=== PATIENT | male | born 1950 | race Caucasian/White ===

== ENCOUNTER 2016-05-15 23:55 | Inpatient (IN) | payer MEDICARE, MEDICAID ==
--- NOTE | 2016-05-16 00:10 | ED Physician Chart ---
Chief Complaint/HPI - Patient Information Date Seen:: 05/16/16 Time Seen:: 00:05 Chief Complaint:: Fever History of Present Illness:: Brought in by ambulance from board and care facility because of fever today. Pt has profound mental retardation and is not cooperative; thus, H & P are limited. Info is primarily from review of limited transfer documents. Allergies:: Allergies Allergy/AdvReac Type Severity Reaction Status Date / Time No Known Allergies Allergy Verified 05/16/16 00:05 Vitals:: see Nurse Note. Historian:: Patient, Medical Records (from transferring facility.) Family MD/PCP:: Dr. Durán LMP:: N/A Review:: Nurse's Note Reviewed, Transfer documents Reviewed Review of Systems - Review of Systems General/Constitutional: Other (Pt does not cooperate for ROS.) Past Medical History - Past Medical History Past Medical History: Dementia (with severe mental retardation, blindness, hydrocephalus with R hemiparesis.), Other (Chronic anemia.) Family History: Other (Pt does not cooperate to provide info on FHx.) Social History: Care Facility, Other (Pt does not cooperate to provide info on SHx.) Surgical History: other (Pt does not cooperate to provide info on Surgical Hx.) Psychiatricy History: Dementia Medication: Reviewed Family Medical History - Family Member Mother History Unknown: Yes Physical Exam - Physical Examination General/Constitutional: Awake, Well-developed, well-nourished, Alert, No distress Other Gen/Cons comments:: Breathes comfortably and responds to voice and tactile stimuli. Head: Atraumatic Eyes: Lids, conjuctiva normal, PERRL, EOMI Skin: No ecchymosis, No lymphadenopathy Other Skin comments:: Good skin color with mild decrease in turgor. ENMT: External ears, nose nl, Nasal exam nl, Oropharynx nl, Tonsils nl Other ENMT comments:: Mucous membrane is dry. Neck: Nontender, Full ROM w/o pain, No JVD, No nuchal rigidity, No mass, No stridor Respiratory: Nl effort/Exclusion Other Respiratory comments:: Trace rale at left basilar region. No wheeze. Cardio Vascular: No murmur, gallop, rubs Other Cardio Vascular comments:: Regular rhythm with mild tachycardia. GI: No tenderness/rebounding/guarding, No organomegaly, No hernia, Normal BS's, Nondistended, No mass/bruits, No McBurney tenderness Other GI comments:: Obese but soft. : No CVA tenderness Extremities: No edema Other Extremities comments:: Contracture noticed in RUE. Other Neuro/Psych comments:: Alert and responsive to voice and tactile stimuli. Spontaneous movements noticed in all 4 extremities. Pt does not cooperate for full neurological exam. Labs/Radiology/EKG Results - Lab Results Results: Laboratory Tests 05/16/16 05/16/16 05/16/16 00:21 00:21 00:21 WBC 18.8 H RBC 3.88 Hgb 9.6 L Hct 29.5 L MCV 75.8 L MCH 24.8 L MCHC Differential 32.7 RDW 16.7 Plt Count 334 MPV 8.0 Band Neutrophils % 6 Neutrophils (Manual) 89 H Lymphocytes 4 L Monocytes 1 L Hypochromia 1+ Platelet Estimate ADEQUATE Poikilocytosis 1+ Anisocytosis 1+ Microcytosis 1+ Ovalocytes 1+ PT 11.9 H INR 1.13 PTT (Actin FS) 21.7 L Sodium 132 L Potassium 3.7 Chloride 105 Carbon Dioxide 25.2 Anion Gap 5.5 L BUN 22 Creatinine 0.9 Est GFR ( Amer) > 60.0 Est GFR (Non-Af Amer) > 60.0 BUN/Creatinine Ratio 24.4 Glucose 168 H Whole Bld Lactic Acid Calcium 8.9 Total Bilirubin 0.5 AST 37 ALT 47 Alkaline Phosphatase 185 H Creatine Kinase 126 Troponin I Total Protein 6.1 Albumin 2.8 L Globulin 3.3 Albumin/Globulin Ratio 0.9 L Urine Source Urine Color Urine Clarity Urine pH Ur Specific [place] Urine Protein Urine Glucose (UA) Urine Ketones Urine Blood Urine Nitrate Urine Bilirubin Urine Ictotest Urine Urobilinogen Ur Leukocyte Esterase Urine RBC Urine WBC Ur Epithelial Cells Urine Bacteria Hyaline Casts Coarse Granular Casts 05/16/16 05/16/16 05/16/16 00:21 00:21 01:30 WBC RBC Hgb Hct MCV MCH MCHC Differential RDW Plt Count MPV Band Neutrophils % Neutrophils (Manual) Lymphocytes Monocytes Hypochromia Platelet Estimate Poikilocytosis Anisocytosis Microcytosis Ovalocytes PT INR PTT (Actin FS) Sodium Potassium Chloride Carbon Dioxide Anion Gap BUN Creatinine Est GFR ( Amer) Est GFR (Non-Af Amer) BUN/Creatinine Ratio Glucose Whole Bld Lactic Acid 2.79 H* Calcium Total Bilirubin AST ALT Alkaline Phosphatase Creatine Kinase Troponin I 0.04 Total Protein Albumin Globulin Albumin/Globulin Ratio Urine Source CATH Urine Color ORANGE Urine Clarity HAZY Urine pH 5.5 Ur Specific [place] 1.025 Urine Protein 100 H Urine Glucose (UA) NEGATIVE Urine Ketones TRACE Urine Blood SMALL H Urine Nitrate NEGATIVE Urine Bilirubin SMALL H Urine Ictotest POSITIVE H Urine Urobilinogen 0.2 Ur Leukocyte Esterase NEGATIVE Urine RBC 5-10 H Urine WBC 2-5 H Ur Epithelial Cells MODERATE Urine Bacteria MODERATE Hyaline Casts 2-5 H Coarse Granular Casts 2-5 H - Radiology Results Results: PCXR: Based on my interpretation, increased markings at L basilar region. Consider early pneumonia. Official report is pending. - EKG Interpretations EKG Time:: 00:21 Rhythm: Sinus tachycardia Rate: 105 Comments:: No acute ischemic changes. ED Septic Shock - . Is Septic Shock (SBP<90, OR Lactate>4 mmol\L) present?: No Reassessment (Disposition) - Reassessment Reassessment:: 1410 Pt has been repeatedly evaluated. Pt overall improved after IV hydration with normalized heart rate and improved BP. CXR just became available. Dr. Wagner is to be contacted. 1420 Case was discussed with Dr. Wagner with pertinent H & P, EKG, CXR, and lab findings reviewed. He concurred with present management with antibiotic therapy , IV hydration, etc. Pt is to be admitted to Telemetry [facility] under his care. Reassessment Condition:: Improved - Diagnosis Diagnosis:: Febrile illness related to pneumonia and UTI, stable. Chronic anemia, stable. h/o dementia - Patient Disposition Admitted to:: Telemetry Admitting Medical Physician:: Carlos Wagner Time:: 02:25 Condition at Disposition:: Stable, Improved
[2016-05-16] MEDS ORDERED: Sodium Chloride 0.9% 1,000 ML IV ONE (00:17)
[2016-05-16 00:33] LABS: HEMATOCRIT 29.5 % (39.0-49.0); HEMOGLOBIN 9.6 gm/dL (12.6-17.4); MEAN CELL VOLUME 75.8 fl (80-99); MEAN CORPUSCULAR HEMOGLOBIN 24.8 pg (27.0-31.0); MEAN CORPUSCULAR HGB CONC 32.7 pg (28.0-36.0); PLATELET COUNT 334 Th/cmm (150-400); RED BLOOD COUNT 3.88 Mil/cmm (3.80-5.80); RED CELL DISTRIBUTION WIDTH 16.7 % (11.5-20.0)
[2016-05-16 00:34] LABS: WHITE BLOOD COUNT 18.8 Th/cmm (4.8-10.8)
[2016-05-16 00:47] LABS: INR 1.13 (0.5-1.4); PROTHROMBIN TIME (TEST) 11.9 SECONDS (9.5-11.5)
[2016-05-16 00:49] LABS: ALB/GLOB RATIO 0.9 (1.0-1.8); ALKALINE PHOSPHATASE 185 U/L (34-104); ANION GAP 5.5 (7.0-16.0); BILIRUBIN,TOTAL 0.5 mg/dL (0.3-1.0); BUN - UREA NITROGEN 22 mg/dL (7-25); BUN/CREATININE RATIO 24.4; CALCIUM SERUM 8.9 mg/dL (8.6-10.3); CARBON DIOXIDE 25.2 mEq/L (21.0-31.0); CHLORIDE 105 mEq/L (98-107); CREATININE - SERUM 0.9 mg/dL (0.7-1.3); GLUCOSE 168 mg/dL (70-105); POTASSIUM SERUM 3.7 mEq/L (3.5-5.1); SGOT 37 U/L (13-39); SGPT/ALT 47 U/L (7-52); SODIUM SERUM 132 mEq/L (136-145)
[2016-05-16 01:03] LABS: TOTAL CELLS COUNTED 100
[2016-05-16 01:04] LABS: BAND NEUTROPHILE 6 % (0-10); NEUTROPHILS 89 % (40-80); PLATELET ESTIMATE ADEQUATE (NORMAL)
[2016-05-16 01:05] LABS: ANISOCYTOSIS 1+; HYPOCHROMIA 1+; MICROCYTOSIS 1+; OVALOCYTES 1+; POIKILOCYTOSIS 1+
[2016-05-16 01:57] LABS: URINE BILIRUBIN SMALL (NEGATIVE); URINE BLOOD SMALL (NEGATIVE); URINE COLOR ORANGE; URINE GLUCOSE (UA) NEGATIVE (NEGATIVE); URINE KETONE TRACE mg/dL (NEGATIVE)
[2016-05-16 01:58] LABS: URINE BACTERIA MODERATE /hpf (NONE SEEN); URINE EPITHELIAL CELLS MODERATE /lpf (FEW); URINE PH 5.5; URINE PROTEIN 100 mg/dL (NEGATIVE); URINE UROBILINOGEN 0.2 E.U./dL (0.2 - 1.0)
[2016-05-16] MEDS ORDERED: cefTRIAXone 1 GM in Sodium Chloride 0.9% 50 ML IV ONE (02:11)
[2016-05-16] MEDS ORDERED: Levofloxacin 500mg/100mL 500 MG/100 ML BAG IV ONE ×2 (02:23→02:28)
--- NOTE | 2016-05-16 04:02 | Admit Criteria Form ---
Admit Criteria Forms - Admit Criteria Diagnosis: FEBRILE ILLNESS, WITHOUT FOCAL INFECTION Clinical Indications for Admission to Inpatient Care (Place 'X' for any and all applicable criteria): Admission is indicated for ANY ONE of the following (1)(2)(3): [ ] I. Bacteremia [ ]II. Suspected or identified specific infection requiring hospitalization (eg, meningitis, endocarditis) [ ]III. Hemodynamic instability [ ]IV. Altered mental status [ ]V. Failure or unavailability of outpatient antimicrobial treatment [ ]. Hypoxemia [ ]VII. Seizures [ ]VIII. High-risk febrile neutropenia [ ]IX. Need for parenteral antibiotic in patient who is likely to abuse vascular access device (eg, injection drug user) [A](7) [ ]X. Temperature greater than 104.9 degrees F (40.5 degrees C) (oral) [X]XI. Inpatient admission required rather than observation care because of ANY ONE of the following: [X]a) Specific infection identified that is too severe for outpatient treatment or observation care trial [ ]b) Metabolic disorder (eg, hypoglycemia, hyperglycemia, metabolic acidosis) that is severe or persistent [ ]c) Temperature greater than 103.1 degrees F (39.5 degrees C) ( oral) that is not responsive to observation care treatment [ ]d) IV fluid to replace significant ongoing (eg, for over 24 hours) losses (> 3 L/m2 per day) [ ]e) Supplemental oxygen or respiratory treatments for over 24 hours that is performable only in acute inpatient setting [X]f) Parenteral nutrition regimen need that must be implemented on inpatient basis [ ]g) Strict or protective (eg, laminar flow) isolation [ ]h) Other condition, treatment or monitoring requiring inpatient admission Extended stay beyond goal length of stay may be needed for(1)(3) [ ]a) Sepsis or septic shock(22) [ ]b) Positive blood cultures [ ]c) Insufficient oral intake [ ]d) High-risk febrile neutropenia(29)(30) [ ]e) Continued fever and clinical instability [ ]f) Clinically active comorbid illness (e.g,heart failure, renal failure , diabetes) The original [facility] content created by Gregorio Fuentes has been revised. The portions of the content which have been revised are identified through the use of italic text or in bold, and Gregorio Fuentes has neither reviewed nor approved the modified material. All other unmodified content is copyright [facility]. Please see references footnoted in the original [facility] edition 2016 Admit Criteria Met?: Yes
[2016-05-16] MEDS: Sodium Chloride 0.9% 1,000 ML IV SCH ×2 (04:15→18:02)
[2016-05-16 06:30] LABS: HEMOGLOBIN 8.7 gm/dL (12.6-17.4); RED CELL DISTRIBUTION WIDTH 16.8 % (11.5-20.0)
[2016-05-16 06:47] LABS: ALB/GLOB RATIO 0.9 (1.0-1.8); ALKALINE PHOSPHATASE 148 U/L (34-104); ANION GAP 2.3 (7.0-16.0); BILIRUBIN,TOTAL 0.3 mg/dL (0.3-1.0); BUN - UREA NITROGEN 22 mg/dL (7-25); BUN/CREATININE RATIO 27.5; CALCIUM SERUM 8.6 mg/dL (8.6-10.3); CARBON DIOXIDE 28.6 mEq/L (21.0-31.0); CHLORIDE 108 mEq/L (98-107); CHOLESTEROL 67 mg/dL (<200); CREATININE - SERUM 0.8 mg/dL (0.7-1.3); GLUCOSE 101 mg/dL (70-105); POTASSIUM SERUM 3.9 mEq/L (3.5-5.1); SGOT 26 U/L (13-39); SGPT/ALT 38 U/L (7-52); SODIUM SERUM 135 mEq/L (136-145); TRIGLYCERIDES 69 mg/dL (<150)
[2016-05-16 07:39] LABS: HEMATOCRIT 26.4 % (39.0-49.0); MEAN CELL VOLUME 76.2 fl (80-99); MEAN CORPUSCULAR HEMOGLOBIN 25.1 pg (27.0-31.0); MEAN CORPUSCULAR HGB CONC 32.9 pg (28.0-36.0); MEAN PLATELET VOLUME 7.9 fl; PLATELET COUNT 275 Th/cmm (150-400); RED BLOOD COUNT 3.47 Mil/cmm (3.80-5.80); WHITE BLOOD COUNT 13.7 Th/cmm (4.8-10.8)
--- NOTE | 2016-05-16 08:06 | Diagnostic Imaging Report ---
Portable chest x-ray HISTORY: Fever The patient is rotated. Density noted about the left costophrenic angle. Changes may be associated with a small pleural effusion. No definite focal pulmonary parenchymal processes. IMPRESSION: 1. Limited exam due to patient rotation 2. Question small left pleural effusion. Etiology uncertain.
[2016-05-16] MEDS: Multivitamin w/ Minerals Tab PO SCH ×2 (08:28→16:23)
[2016-05-16] MEDS: POLYETHYLENE GLYCOL 3350 17 GM PACK PO SCH (08:28)
[2016-05-16] MEDS: Ferrous Sulfate 325 MG TAB PO SCH ×2 (08:28→16:23)
[2016-05-16 08:49] LABS: ANISOCYTOSIS 1+; BAND NEUTROPHILE 8 % (0-10); MICROCYTOSIS 2+; NEUTROPHILS 79 % (40-80); PLATELET ESTIMATE ADEQUATE (NORMAL); PLATELET MORPHOLOGY GIANT PLATELETS SEEN (NORMAL); TOTAL CELLS COUNTED 100
[2016-05-16 08:52] LABS: OVALOCYTES 1+; POIKILOCYTOSIS 1+
[2016-05-16] MEDS ORDERED: SIMETHICONE 125 MG PO SCH (09:00)
[2016-05-16] MEDS ORDERED: SIMETHICONE 40 MG/0.6 ML BOTTLE PO SCH (09:00)
[2016-05-16] MEDS ORDERED: VTE Chemical Prophylaxis Screen/Admission MC PRN (09:00)
[2016-05-16] MEDS: METRONIDAZOLE 0.75% TP SCH ×2 (10:13→17:38)
[2016-05-16] MEDS: Menthol/Zinc Oxide Oint 113gm Tube TP SCH (10:16)
--- NOTE | 2016-05-16 10:58 | History & Physical ---
CHIEF COMPLAINT: Fever. HISTORY OF PRESENT ILLNESS: This is a 65-year-old gentleman with history of mental retardation, advanced dementia, legally blind, history of hydrocephalus with right hematemesis, chronic anemia who was transferred from [facility] Care given the above-mentioned symptomatology. The patient was evaluated at the ER where pertinent findings included a white count of 18.8, sodium 132, lactic acid level of 2.16. UA was consistent with a UTI and a chest x-ray showing left pleural effusions. The patient has been admitted to telemetry for further management and care. The patient is asleep, arousable, but not able to give me any history at this time. PAST MEDICAL HISTORY: As noted above. PAST SURGICAL HISTORY: Unknown. FAMILY HISTORY: Unknown, but likely noncontributory. SOCIAL HISTORY: He lives at the [facility] and care under the care of Dr. Durán. ALLERGIES: NKDA. HE IS ALLERGIC TO SOME SOAPS. OUTPATIENT MEDICATIONS: Amitiza 24 mcg twice a day, iron sulfate 325 twice a day, multivitamins every day, MiraLax 1 dose a day for constipation, Tylenol p.r.n. for mild pain, simethicone 125 mg after breakfast and dinner. REVIEW OF SYSTEMS: Unable to be done given the patient's condition. PHYSICAL EXAMINATION: VITAL SIGNS: T-max is 99.8, pulse 109, respirations 19, BP initially 94/60, currently is 109/66, respirations 19, satting 94-98% on room air. GENERAL: He is well-nourished developmentally delayed gentleman, currently asleep, but arousable, appears to be nontoxic and not in acute distress. HEAD: Normocephalic, atraumatic. NECK: There is no JVD or LAD. CARDIOVASCULAR: Regular rate with distant sounds. LUNGS: Decreased at the bases, but no audible rhonchi or wheezes or crackles. ABDOMEN: Soft, supple, nontender, nondistended, normoactive bowel sounds. EXTREMITIES: No edema. NEUROLOGIC: Difficult to assess given patient's condition. LABORATORY DATA: On admission, white count 18.8, H and H 11/18 and platelet count of 334 with 89% neutrophils. INR is 1.19. Sodium 132, potassium 3.7, chloride 105, CO2 25, BUN 22, creatinine 0.9 and glucose 168. Lactic acid is 2.16. Alkaline phosphatase 185, otherwise LFTs were within normal limits. Albumin 2.8. UA shows positive for protein, blood, small bilirubin and negative for leukocytes, 5-10 rbc's and 2-5 wbc's. DIAGNOSTICS: X-rays, limited exam due to the patient's interpretation, questionable small left ruled effusions. EKG sinus tachycardia at a rate of 105. IMPRESSION: 1. Fever, sepsis, likely culprits: UTI versus lung i.e., pneumonia/bronchitis. 2. Lactic acidosis. 3. Leukocytosis. 4. Urinary tract infection. 5. Pleural effusions, rule out pneumonia versus bronchitis. 6. History of mental retardation. 7. History of dementia. 8. History of hydrocephalus with right hemiparesis. 9. History of chronic anemia. PLAN: The patient has been admitted to telemetry [facility] where he has been placed on IV fluids and Levaquin. He has been pancultured. We will monitor his labs on a daily basis including lactic acid levels. He has been placed on his current medications as scheduled and he will receive heparin subq for DVT prophylaxis. As mentioned, he has been placed on IV antibiotics, namely Rocephin and Flagyl to cover for anaerobics. [facility]# [id number] [facility]
[2016-05-17] MEDS ORDERED: Levofloxacin 500mg/100mL 500 MG in Premix Fluid 1 BAG IV ONE ×2 (02:00→09:10)
[2016-05-17 07:22] LABS: % BASOPHILS 0.2 % (0.0-2.0); % EOSINOPHILS 2.6 % (0.0-5.0); % LYMPHOCYTES 11.7 % (20.0-50.0); % MONOCYTES 10.8 % (2.0-10.0); % NEUTROPHILS 74.7 % (40.0-80.0); HEMATOCRIT 27.3 % (39.0-49.0); HEMOGLOBIN 8.9 gm/dL (12.6-17.4); MEAN CELL VOLUME 76.2 fl (80-99); MEAN CORPUSCULAR HGB CONC 32.8 pg (28.0-36.0); MEAN PLATELET VOLUME 7.9 fl; NEUTROPHILE ABSOLUTE 6.8 Th/cmm (1.8-8.0); PLATELET COUNT 299 Th/cmm (150-400); RED BLOOD COUNT 3.58 Mil/cmm (3.80-5.80); RED CELL DISTRIBUTION WIDTH 16.7 % (11.5-20.0)
[2016-05-17 07:43] LABS: WHITE BLOOD COUNT 9.1 Th/cmm (4.8-10.8)
[2016-05-17 07:44] LABS: ANION GAP 5.1 (7.0-16.0); BUN - UREA NITROGEN 19 mg/dL (7-25); BUN/CREATININE RATIO 31.7; CALCIUM SERUM 8.2 mg/dL (8.6-10.3); CARBON DIOXIDE 23.8 mEq/L (21.0-31.0); CHLORIDE 112 mEq/L (98-107); CREATININE - SERUM 0.6 mg/dL (0.7-1.3); GLUCOSE 85 mg/dL (70-105); MAGNESIUM 2.1 mg/dL (1.9-2.7); POTASSIUM SERUM 3.9 mEq/L (3.5-5.1); SODIUM SERUM 137 mEq/L (136-145)
[2016-05-17] MEDS: POLYETHYLENE GLYCOL 3350 17 GM PACK PO SCH ×2 (08:14→08:22)
[2016-05-17] MEDS: METRONIDAZOLE 0.75% TP SCH ×2 (08:14→17:00)
[2016-05-17] MEDS: Ferrous Sulfate 325 MG TAB PO SCH ×2 (08:14→16:32)
[2016-05-17] MEDS: Menthol/Zinc Oxide Oint 113gm Tube TP SCH (08:14)
[2016-05-17] MEDS: Multivitamin w/ Minerals Tab PO SCH ×2 (08:15→16:32)
--- NOTE | 2016-05-17 09:23 | Diagnostic Imaging Report ---
Portable chest x-ray HISTORY cough, pneumonia Compared with the prior exam of May 16, 2016, exam is limited with marked patient rotation. Density noted in left lower hemithorax and may be associated with a pleural effusion. The right lung is clear. IMPRESSION: 1. Suboptimal/Limited exam due to difficulty in patient positioning and patient rotation. 2. Density left lower hemithorax that may be associated with a pleural effusion.
[2016-05-17] MEDS: Sodium Chloride 0.9% 1,000 ML IV SCH (23:20)
[2016-05-18 07:19] LABS: % BASOPHILS 1.4 % (0.0-2.0); % EOSINOPHILS 3.3 % (0.0-5.0); % LYMPHOCYTES 17.4 % (20.0-50.0); % NEUTROPHILS 67.9 % (40.0-80.0); HEMATOCRIT 27.6 % (39.0-49.0); HEMOGLOBIN 9.3 gm/dL (12.6-17.4); MEAN CELL VOLUME 74.2 fl (80-99); MEAN CORPUSCULAR HEMOGLOBIN 24.9 pg (27.0-31.0); MEAN CORPUSCULAR HGB CONC 33.6 pg (28.0-36.0); MEAN PLATELET VOLUME 8.2 fl; NEUTROPHILE ABSOLUTE 5.1 Th/cmm (1.8-8.0); PLATELET COUNT 314 Th/cmm (150-400); RED BLOOD COUNT 3.73 Mil/cmm (3.80-5.80); RED CELL DISTRIBUTION WIDTH 16.5 % (11.5-20.0); WHITE BLOOD COUNT 7.5 Th/cmm (4.8-10.8)
[2016-05-18 08:29] LABS: BUN - UREA NITROGEN 13 mg/dL (7-25); BUN/CREATININE RATIO 18.6; CALCIUM SERUM 8.6 mg/dL (8.6-10.3); CHLORIDE 109 mEq/L (98-107); CREATININE - SERUM 0.7 mg/dL (0.7-1.3); GLUCOSE 88 mg/dL (70-105); POTASSIUM SERUM 3.7 mEq/L (3.5-5.1); SODIUM SERUM 137 mEq/L (136-145)
[2016-05-18 08:46] LABS: ANION GAP 10.5 (7.0-16.0); CARBON DIOXIDE 21.2 mEq/L (21.0-31.0)
[2016-05-18] MEDS: Menthol/Zinc Oxide Oint 113gm Tube TP SCH (09:33)
[2016-05-18] MEDS: METRONIDAZOLE 0.75% TP SCH ×2 (09:34→16:48)
[2016-05-18] MEDS: POLYETHYLENE GLYCOL 3350 17 GM PACK PO SCH (09:34)
[2016-05-18] MEDS: Ferrous Sulfate 325 MG TAB PO SCH ×2 (09:35→16:48)
[2016-05-18] MEDS: Multivitamin w/ Minerals Tab PO SCH ×2 (09:35→16:48)
[2016-05-18] MEDS: Levofloxacin 500mg/100mL 500 MG/100 ML BAG IV SCH (10:59)
[2016-05-18 16:18] LABS: URINE BILIRUBIN NEGATIVE (NEGATIVE); URINE COLOR YELLOW; URINE GLUCOSE (UA) NEGATIVE (NEGATIVE); URINE KETONE NEGATIVE (NEGATIVE)
[2016-05-18 16:27] LABS: URINE BLOOD MODERATE (NEGATIVE); URINE PH 7.5; URINE PROTEIN NEGATIVE (NEGATIVE); URINE UROBILINOGEN 0.2 E.U./dL (0.2 - 1.0)
[2016-05-18 16:29] LABS: URINE BACTERIA NONE SEEN /hpf (NONE SEEN); URINE EPITHELIAL CELLS NONE SEEN /lpf (FEW); URINE WBC NONE SEEN /hpf (0-5)
[2016-05-19 07:13] LABS: % BASOPHILS 0.1 % (0.0-2.0); % EOSINOPHILS 3.6 % (0.0-5.0); % LYMPHOCYTES 18.4 % (20.0-50.0); % MONOCYTES 9.4 % (2.0-10.0); % NEUTROPHILS 68.5 % (40.0-80.0); HEMOGLOBIN 10.2 gm/dL (12.6-17.4); MEAN CELL VOLUME 74.1 fl (80-99); MEAN CORPUSCULAR HEMOGLOBIN 24.7 pg (27.0-31.0); MEAN CORPUSCULAR HGB CONC 33.3 pg (28.0-36.0); MEAN PLATELET VOLUME 7.9 fl; NEUTROPHILE ABSOLUTE 5.6 Th/cmm (1.8-8.0); RED BLOOD COUNT 4.12 Mil/cmm (3.80-5.80); RED CELL DISTRIBUTION WIDTH 16.7 % (11.5-20.0); WHITE BLOOD COUNT 8.2 Th/cmm (4.8-10.8)
[2016-05-19 07:32] LABS: BUN - UREA NITROGEN 13 mg/dL (7-25); BUN/CREATININE RATIO 18.6; CALCIUM SERUM 8.7 mg/dL (8.6-10.3); CARBON DIOXIDE 23.8 mEq/L (21.0-31.0); CHLORIDE 109 mEq/L (98-107); CREATININE - SERUM 0.7 mg/dL (0.7-1.3); GLUCOSE 89 mg/dL (70-105); POTASSIUM SERUM 3.8 mEq/L (3.5-5.1); SODIUM SERUM 138 mEq/L (136-145)
[2016-05-19 07:34] LABS: HEMATOCRIT 30.5 % (39.0-49.0); PLATELET COUNT 377 Th/cmm (150-400)
[2016-05-19] MEDS: POLYETHYLENE GLYCOL 3350 17 GM PACK PO SCH (08:53)
[2016-05-19] MEDS: Ferrous Sulfate 325 MG TAB PO SCH (08:54)
[2016-05-19] MEDS: Multivitamin w/ Minerals Tab PO SCH (08:55)
[2016-05-19] MEDS: Levofloxacin 500mg/100mL 500 MG/100 ML BAG IV SCH (08:57)
[2016-05-19] MEDS: METRONIDAZOLE 0.75% TP SCH (08:57)
[2016-05-19] MEDS: Menthol/Zinc Oxide Oint 113gm Tube TP SCH (10:51)
--- NOTE | 2016-05-19 17:28 | Discharge Summary ---
ADMITTING DIAGNOSES: Fever, sepsis, elevated lactic acid, urinary tract infection, rule out pneumonia, possible pleural effusion, leukocytosis. SECONDARY DIAGNOSES: History of dementia, history of mental retardation, history of chronic anemia, history of hydrocephalus with right hemiparesis. DISCHARGE DIAGNOSES: 1. Fever, sepsis, resolved. 2. Elevated lactic acidosis, resolved. 3. Urinary tract infection. 4. Leukocytosis, resolved. CONSULTANTS: There were no consultants used during this admission. MAJOR PROCEDURES: There were no major procedures done during this admission. DISCHARGE MEDICATIONS: Levaquin 500 mg p.o. daily x 10 days, Tylenol 650 q. 6 p.r.n. for fever or pain, bisacodyl suppository 10 mg q.72 hours per rectum for constipation, iron sulfate 325 b.i.d., Amitiza 24 mcg b.i.d., menthol and zinc oxide topical application daily, MetroCream b.i.d., multivitamins and minerals, MiraLax 17 grams pack daily, and simethicone 125 mg b.i.d. BRIEF HOSPITAL COURSE: This is a 65-year-old gentleman with the above-mentioned diagnoses who was transferred from [facility] Care given recurrent fevers. At the ER, he was noted to have a white count of 18.8, sodium 132, lactic acid of 2.16, and a UA consistent with a UTI. The chest x-ray showed a left pleural effusion, possible infiltrate. The patient was admitted to telemetry and placed on IV fluids, IV Levaquin, and supportive care, and he was pancultured. His white count did improve by hospital day #2 from 18.8 to 13.7 and eventually normalized. His lactic acid did improve to a level of 0.7 x 327. He has remained stable with normal vital signs and stable labs. Cultures did not yield any positive results and the patient is currently tolerating his diet when fed. CONDITION ON DISCHARGE: Stable. DISPOSITION: The patient will be discharged back to the [facility] and care under the care of Dr. Durán. JOB# [id number] [facility]
== END 2016-05-19 14:50 | disposition home or self-care (01) | DRG 872 ==
LOC: ER 23:55 → TELE 05-16 02:20 → MSI 05-18 16:24
PROVIDERS: ADMIT Internal Medicine; ATTEND Internal Medicine
DX: A41.9 Sepsis, unspecified organism (principal); J90 Pleural effusion, not elsewhere classified; G81.91 Hemiplegia, unspecified affecting right dominant side; E44.1 Mild protein-calorie malnutrition; F03.90 Unspecified dementia, unspecified severity, without behavioral disturbance, psychotic disturbance, mood disturbance, and anxiety; N39.0 Urinary tract infection, site not specified; F79 Unspecified intellectual disabilities; D64.9 Anemia, unspecified; H54.8 Legal blindness, as defined in USA; Z91.018 Allergy to other foods; Z68.27 Body mass index [BMI] 27.0-27.9, adult
CPT/HCPCS: 36415-UA; 71010-TC; 80048-TC; 80053-TC; 80061-TC; 81001-TC; 82550-TC; 83605; 83735-TC; 84484-TC; 85007-TC; 85025-TC; 85027-TC; 85610-TC; 87070; 87086-90; 87230-TC; 93005; 94760; 96374; J0696; J1644; J1956; J7030; Z7610

== ENCOUNTER 2016-09-09 09:05 | Emergency (ER) | payer MEDICARE, MEDICAID ==
--- NOTE | 2016-09-09 10:06 | ED Physician Chart ---
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 HE HAD NO LOC. Allergies:: Allergies Allergy/AdvReac Type Severity Reaction Status Date / Time No Known Allergies Allergy Verified 05/16/16 00:05 Vitals:: Vital Signs - 8 hr 09/09/16 09:30 Temp 97.9 F HR 100 RR 16 BP 136/80 O2 Sat % 100 Historian:: Medical Records Review:: Nurse's Note Reviewed Review of Systems - Review of Systems General/Constitutional: No fever, No chills, No weight loss, No weakness, No diaphoresis, No edema, No loss of appetite, Other (THIS PATIENT IS UNABLE TO GIVE A REVIEW OF SYSTEMS.) Skin: No skin lesions, No rash, No bruising Head: No headache, No light-headedness Eyes: No loss of vision, No pain, No diplopia ENT: No earache, No nasal drainage, No sore throat, No tinnitus Neck: No neck pain, No swelling, No thyromegaly, No stiffness, No mass noted Cardio Vascular: No chest pain, No palpitations, No PND, No orthopnea, No edema Pulmonary: No SOB, No cough, No sputum, No wheezing GI: No nausea, No vomiting, No diarrhea, No pain, No melena, No hematochezia, No constipation, No hematemesis G/U: No dysuria, No frequency, No hematuria Musculoskeletal: No bone or joint pain, No back pain, No muscle pain Endocrine: No polyuria, No polydipsia Psychiatric: No prior psych history, No depression, No anxiety, No suicidal ideation Hematopoietic: No bruising, No lymphadenopathy Allergic/Immuno: No urticaria, No angioedema Neurological: No syncope, No focal symptoms, No weakness, No paresthesia, No headache, No seizure, No dizziness, No confusion, No vertigo Past Medical History - Past Medical History Obtainable: Yes Past Medical History: Other (BLINDNESS, HEPATIC ENCEHALOPATHY) Family History: None Social History: Non Smoker, No Alcohol, No Drug Use Surgical History: None Psychiatricy History: None Family Medical History - Family Member Mother History Unknown: Yes Physical Exam - Physical Examination General/Constitutional: Awake, Well-developed, well-nourished, Alert, No distress, GCS 15, Non-toxic appearing, Ambulatory Other Gen/Cons comments:: CHRONICALLY ILL WHEELCHAIR BOUND AND PARTIALLY PARALYSIS WITH CONTRACTURE OF THE EXTREMITIES. Head: Atraumatic Eyes: Lids, conjuctiva normal, PERRL, EOMI Other Eyes comments:: PARTIAL BLIND Skin: Nl inspection, No rash, No skin lesions, No ecchymosis, Well hydrated, No lymphadenopathy ENMT: External ears, nose nl, Nasal exam nl, Lips, teeth, gums nl Neck: Nontender, Full ROM w/o pain, No JVD, No nuchal rigidity, No bruit, No mass, No stridor Respiratory: Nl effort/Exclusion, Clear to Auscultation, No Wheeze/Rhonchi/Rales Cardio Vascular: RRR, No murmur, gallop, rubs, NL S1 S2 GI: No tenderness/rebounding/guarding, No organomegaly, No hernia, Normal BS's, Nondistended, No mass/bruits, No McBurney tenderness : No CVA tenderness Extremities: Full ROM, normal strength in all extremities, No edema, Normal digits & nails Other Extremities comments:: THE LEFT KNEE AND LEFT WRIST ARE BOTH NOT SWOLLEN OR TENDER. THERE IS A RIGHT LOWER LEG ABRASION NOTED. Neuro/Psych: Alert/oriented (THIS PATIENT IS DISORIENTED AND CONFUSED.), DTR's symmetric, Normal sensory exam, Normal motor strength, Judgement/insight normal , Mood normal, Normal gait, No focal deficits Misc: normal gait, Normal back, No paraspinal tenderness Labs/Radiology/EKG Results - Radiology Results Results: X-RAYS OF THE LEFT WRIST AND LEFT KNEE WERE BOTH NEGATIVE FOR FRACTURES. Assessment - Assessment General Assessment: CONTUSION OF THE LEFT WRIST AND LEFT KNEE. ED Septic Shock - . Is Septic Shock (SBP<90, OR Lactate>4 mmol\L) present?: No - <6hrs of presentation: Vital Signs: Vital Signs - 8 hr 09/09/16 09:30 Temp 97.9 F HR 100 RR 16 BP 136/80 O2 Sat % 100 Reassessment (Disposition) - Reassessment Reassessment Condition:: Unchanged - Diagnosis Diagnosis:: CONTUSION OF THE LEFT KNEE AND LEFT WRIST AN ABRASION OF THE RIGHT LEG - Aftercare/Follow up Instructions Aftercare/Follow-Up Instructions:: Counseled pt regarding lab results/diagnosis & need follow up, Refer to Discharge Instructions, Counseled pt & family regarding lab results/diagnosis & need follow up - Patient Disposition Discharge/Transfer:: Home Condition at Disposition:: Improved ED Discharge Plan - Patient Disposition Admit/Discharge/Transfer: PT DISCHARGED HOME Condition at Disposition: Improved
--- NOTE | 2016-09-09 10:44 | Diagnostic Imaging Report ---
Left knee 2 views Indication: Trauma Comparison: none Findings: Partially visualized intramedullary barron and screw is seen within the tibia. A nondisplaced proximal fibular shaft fracture is seen possibly subacute. Nonspecific calcifications are seen adjacent to the medial tibial plateau. No evidence of a joint effusion. Mild subcutaneous edema is noted. Impression: Nondisplaced proximal fibular shaft fracture, possibly subacute. Please correlate with clinical findings. Otherwise no evidence of an acute fracture. Generalized subcutaneous edema Partially visualized intramedullary barron within the tibia. In the setting of trauma, if clinical symptoms persist and there is continued concern for an occult fracture, follow up exams in 5-7 days is suggested.
--- NOTE | 2016-09-09 10:48 | Diagnostic Imaging Report ---
Left wrist 3 views Indication: Trauma Comparison: none Findings: A sclerotic linear densities of the distal radius and ulna are noted. Mild degenerative changes are noted. No dislocation. Mild joint soft tissue prominence is noted. Impression: Sclerotic linear densities of the distal radius and ulna. Findings likely represent physeal scars. A Nondisplaced impacted fractures in these regions would be considered much less likely. Please correlate with clinical history and point tenderness in this region. In the setting of trauma, if clinical symptoms persist and there is continued concern for an occult fracture, follow up exams in 5-7 days is suggested.
== END 2016-09-09 10:40 ==
LOC: ER 09:05
DX: S60.212A Contusion of left wrist, initial encounter (principal); S80.02XA Contusion of left knee, initial encounter; W05.0XXA Fall from non-moving wheelchair, initial encounter; Y93.89 Activity, other specified; Y92.89 Other specified places as the place of occurrence of the external cause; Y99.8 Other external cause status
CPT/HCPCS: 73110-TC-LT; 73560-TC-LT; Z7502

== ENCOUNTER 2016-09-28 14:09 | Inpatient (IN) | payer MEDICARE, MEDICAID ==
--- NOTE | 2016-09-28 14:26 | ED Physician Chart ---
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 Pain, A/n/v/SD/c, chills, or urinary s/s; Allergies:: Allergies Allergy/AdvReac Type Severity Reaction Status Date / Time No Known Allergies Allergy Verified 05/16/16 00:05 Historian:: Patient, Friend Review:: Nurse's Note Reviewed, Old Chart Reviewed, Transfer documents Reviewed Review of Systems - Review of Systems General/Constitutional: Fever, Chills, No weight loss, Weakness, No diaphoresis , No edema, No loss of appetite Skin: Skin lesions, Rash, No bruising Head: No headache, No light-headedness Eyes: No loss of vision, No pain, No diplopia ENT: No earache, Nasal drainage, No sore throat, No tinnitus Neck: No neck pain, No swelling, No thyromegaly, No stiffness, No mass noted Cardio Vascular: No chest pain, No palpitations, No PND, No orthopnea, No edema Pulmonary: No SOB, Cough, No sputum, No wheezing GI: Nausea, Vomiting, Diarrhea, No pain, No melena, No hematochezia, Constipation, No hematemesis G/U: No dysuria, No frequency, No hematuria Musculoskeletal: No bone or joint pain, No back pain, No muscle pain Endocrine: No polyuria, No polydipsia Psychiatric: No prior psych history, No depression, No anxiety, No suicidal ideation, No homicidal ideation, No auditory hallucination, No visual hallucination Hematopoietic: No bruising, No lymphadenopathy Allergic/Immuno: No urticaria, No angioedema Neurological: No syncope, Focal symptoms, Weakness, Paresthesia, Headache, No seizure, Dizziness, Confusion, Vertigo Past Medical History - Past Medical History Obtainable: Yes Past Medical History: HTN, CVA/TIA, Dementia Family History: HTN Social History: Non Smoker, No Alcohol, No Drug Use, Single, Care Facility Surgical History: other (Hydrocephalus Surgery) Psychiatricy History: Dementia Medication: Reviewed Family Medical History - Family Member Mother History Unknown: Yes Physical Exam - Physical Examination General/Constitutional: Awake, Well-developed, well-nourished, Alert, No distress, GCS 15, Non-toxic appearing, Ambulatory Head: Atraumatic Eyes: Lids, conjuctiva normal, PERRL, EOMI Skin: Nl inspection, No rash, No skin lesions, No ecchymosis, Well hydrated, No lymphadenopathy ENMT: External ears, nose nl, Nasal exam nl, Lips, teeth, gums nl Neck: Nontender, Full ROM w/o pain, No JVD, No nuchal rigidity, No bruit, No mass, No stridor Respiratory: Nl effort/Exclusion, No Wheeze/Rhonchi/Rales Other Respiratory comments:: Lungs: + Rhonchi Cardio Vascular: RRR, No murmur, gallop, rubs, NL S1 S2 GI: No tenderness/rebounding/guarding, No organomegaly, No hernia, Normal BS's, Nondistended, No mass/bruits, No McBurney tenderness : No CVA tenderness Extremities: No tenderness or effusion, Full ROM, normal strength in all extremities, No edema, Normal digits & nails Neuro/Psych: Alert/oriented, DTR's symmetric, Normal sensory exam, Normal motor strength, Judgement/insight normal, Mood normal, Normal gait, No focal deficits Other Neuro/Psych comments:: pt is non-verbal Misc: normal gait, Normal back, No paraspinal tenderness Labs/Radiology/EKG Results - Lab Results Results: H/H; 6.5/20.5; WBC: 14.5;Na+: 122; Cl-: 96; - Radiology Results Results: + Ileus - EKG Interpretations EKG Time:: 14:38 Rate & Rhythm: 104; ST Comments:: non-specific st-t changes ED Septic Shock - . Is Septic Shock (SBP<90, OR Lactate>4 mmol\L) present?: No Reassessment (Disposition) - Reassessment Reassessment Condition:: Improved - Diagnosis Diagnosis:: Anemia; R/O: GI Bleed; Hyponatremia; Dehydration; Leukocytosis; Fever; Sepsis; PNA; Ileus; SBO - Aftercare/Follow up Instructions Aftercare/Follow-Up Instructions:: Counseled pt regarding lab results/diagnosis & need follow up, Counseled pt & family regarding lab results/diagnosis & need follow up - Patient Disposition Discharge/Transfer:: Acute Care w/in this hosp Accepting Physician:: Dr. Rosales Time Called:: 1600 Time Responded:: 16:00 Admitted to:: Telemetry Spoke to:: Dr. Rosales Admitting Medical Physician:: Dr. Rosales Condition at Disposition:: Stable, Improved
[2016-09-28] MEDS ORDERED: Sodium Chloride 0.9% 500 ML IV ONE (14:31)
[2016-09-28] MEDS ORDERED: Levofloxacin 500mg/100mL 500 MG/100 ML BAG IV ONE ×2 (14:53→15:05)
--- NOTE | 2016-09-28 15:10 | Diagnostic Imaging Report ---
CHEST X-RAY: AP view INDICATION: pain COMPARISON: Chest x-ray 05/17/2016 FINDINGS: Suboptimal lung volumes are seen. No focal consolidation or effusions. Mild cardiomegaly is noted. Multiple old right rib fractures are noted. Distended loops of bowel are seen under the right hemidiaphragm. No evidence of gross free air. Degenerative changes of the spine are noted. IMPRESSION: Suboptimal lung volumes and mild chronic changes. No focal consolidation identified. Distended loops of bowel under the right hemidiaphragm. Findings may be related to an ileus. Please correlate clinically. If indicated abdominal series or CT examination may also be obtained for further assessment. Multiple old right rib fractures. No evidence of pneumothorax.
[2016-09-28 15:13] LABS: MEAN CORPUSCULAR HGB CONC 31.6 pg (28.0-36.0); MEAN PLATELET VOLUME 7.1 fl; RED BLOOD COUNT 3.25 Mil/cmm (3.80-5.80); RED CELL DISTRIBUTION WIDTH 18.3 % (11.5-20.0)
[2016-09-28 15:14] LABS: INR 1.11 (0.5-1.4); PROTHROMBIN TIME (TEST) 11.6 SECONDS (9.5-11.5)
[2016-09-28 15:19] LABS: ALB/GLOB RATIO 0.7 (1.0-1.8); ALKALINE PHOSPHATASE 98 U/L (34-104); ANION GAP 6.5 (7.0-16.0); BILIRUBIN,TOTAL 0.4 mg/dL (0.3-1.0); BUN - UREA NITROGEN 14 mg/dL (7-25); BUN/CREATININE RATIO 23.3; CALCIUM SERUM 8.2 mg/dL (8.6-10.3); CARBON DIOXIDE 23.3 mEq/L (21.0-31.0); CHLORIDE 96 mEq/L (98-107); CREATININE - SERUM 0.6 mg/dL (0.7-1.3); GLUCOSE 118 mg/dL (70-105); POTASSIUM SERUM 3.8 mEq/L (3.5-5.1); SGOT 17 U/L (13-39); SGPT/ALT 15 U/L (7-52)
[2016-09-28 15:27] LABS: SODIUM SERUM 122 mEq/L (136-145)
[2016-09-28 15:28] LABS: HEMOGLOBIN 6.5 gm/dL (12.6-17.4)
[2016-09-28 15:29] LABS: HEMATOCRIT 20.5 % (39.0-49.0); WHITE BLOOD COUNT 14.5 Th/cmm (4.8-10.8)
[2016-09-28 15:30] LABS: MEAN CORPUSCULAR HEMOGLOBIN 19.9 pg (27.0-31.0); PLATELET COUNT 476 Th/cmm (150-400)
[2016-09-28 15:59] LABS: ANISOCYTOSIS 1+; BAND NEUTROPHILE 1 % (0-10); BASOPHIL 1 % (0-3); MICROCYTOSIS 3+; NEUTROPHILS 83 % (40-80); PLATELET ESTIMATE INCREASED PLATELETS (NORMAL); POLYCHROMASIA 2+; TOTAL CELLS COUNTED 100
[2016-09-28 18:01] LABS: URINE BILIRUBIN NEGATIVE (NEGATIVE); URINE BLOOD LARGE (NEGATIVE); URINE GLUCOSE (UA) NEGATIVE (NEGATIVE); URINE KETONE NEGATIVE (NEGATIVE); URINE PROTEIN 30 mg/dL (NEGATIVE); URINE UROBILINOGEN 0.2 E.U./dL (0.2 - 1.0)
[2016-09-28 18:07] LABS: URINE AMORPHOUS SEDIMENT FEW URATES (NONE SEEN); URINE BACTERIA 1+ /hpf (NONE SEEN); URINE COLOR YELLOW; URINE EPITHELIAL CELLS MODERATE /lpf (FEW); URINE RBC 25-50 /hpf (0-5)
--- NOTE | 2016-09-28 21:04 | Admit Criteria Form ---
Admit Criteria Forms - Admit Criteria Diagnosis: DEHYDRATION Clinical Indications for Admission to Inpatient Care (Place 'X' for any and all applicable criteria): Admission is indicated for ANY ONE of the following (1)(2)(3)(4)(5): [X ]I. Inpatient admission required rather than observation care (see Dehydration: Observation Care guideline as appropriate) because of ANY ONE of the following: [ ]a) Vomiting that is severe or persistent [X ]b) Severe electrolyte abnormalities requiring inpatient care [ ]c) Hemodynamic instability [ ]d) IV fluid to replace significant ongoing losses (greater than 3 L/m2 per day (10) (11) [ ]e) Parenteral nutrition regimen that must be implemented on inpatient basis [X ]f) Other condition,treatment or monitoring requiring inpatient admission [ ]II. Serious cause for dehydration requiring acute hospitalization (eg, bowel obstruction, increased intracranial pressure, infectious cause) Extended stay beyond goal length of stay may be needed for(1)(3 )(4)(17): [ ]a) Chronic severe dehydration [ ]b) Persistent vital sign changes, severe electrolyte imbalance, or diagnosed cause of dehydration that requires continued hospitalization (eg, bowel obstruction, increased intracranial pressure) [ ]c) Older patients (65 years or older) [ ]d) Severe comorbid illness (eg, renal failure, heart failure, poorly controlled diabetes) The original [employer] content created by [employer] has been revised. The portions of the content which have been revised are identified through the use of italic text or in bold, and [facility] has neither reviewed nor approved the modified material. All other unmodified content is copyright [facility]. Please see references footnoted in the original [facility] edition 2016 Admit Criteria Met?: Yes
[2016-09-28] MEDS: Sodium Chloride 0.9% 1,000 ML IV SCH (22:38)
[2016-09-29 05:16] LABS: HEMATOCRIT 23.8 % (39.0-49.0)
--- NOTE | 2016-09-29 08:22 | Diagnostic Imaging Report ---
CT abdomen and pelvis without intravenous contrast Indication: Ileus, distention Comparison: None, Technique: Axial images were obtained from the lung bases to the bilateral proximal femurs without IV contrast. Coronal reconstructions were made. total DLP: 457, CTDI8.7 FINDINGS: Hypoventilatory and atelectatic changes of the lung bases are noted. Evaluation of solid organs is limited due to lack of IV contrast. There is a distal fecal impaction with associated massive air distention of the sigmoid colon extending to the right upper quadrant with sigmoid colon measuring up to 17 cm. There is thickening of the rectal wall. There is ill-defined soft tissue density mass lesion seen along the greater curvature of the stomach with diffuse wall thickening of the stomach. This mass measures 9.5 x 5 cm and extends inferiorly to the region of the transverse colon and lesser omental region. Few mildly prominent lymph nodes are seen in this region. Surrounding inflammatory changes are also seen in this region. No evidence of gross free air. Trace surrounding free fluid is seen in this region. No evidence of appendicitis. No focal hepatic, or splenic lesions. Splenomegaly is noted. Limited assessment of the pancreas demonstrates no evidence of focal lesions. No focal lesions. No evidence of hydronephrosis or focal renal lesions. Few mildly prominent lymph nodes are seen along the right anterior pararenal region largest measuring 1.2 cm. No hydronephrosis of hydronephrosis or focal renal lesions. Mc catheter is seen within collapsed urinary bladder. No evidence of gross free air. Degenerative changes of the spine are noted IMPRESSION: Distal fecal impaction with associated massive proximal distention of the sigmoid colon measuring up to 17 cm. Distal rectal wall thickening is also noted. No evidence of gross free air at this time. Correlation follow-up is recommended Large Ill-defined soft tissue density/mass along the greater curvature of the stomach with diffuse areas of wall thickening of the stomach. This mass extends down the lesser omentum and along the transverse colonic region. Surrounding inflammatory changes and trace free fluid is noted. Mildly prominent lymph nodes are also seen in this region. Findings most suggest neoplastic process possibly arising from the stomach or the transverse colon. Clinical correlation and follow-up is recommended. A few mildly prominent right anterior pararenal lymph nodes, nonspecific. Splenomegaly.
--- NOTE | 2016-09-29 09:03 | History and Physical ---
History of Present Illness - HPI Chief Complaint: Fever HPI: Patient had fever x 2 hours, [facility] was [facility]. In ER was found Hgb of 6.5, dehydration and PNA reason why he was hospitalized. 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 Patient has diagosis of sever MR, noted. Social History Smoke: No Alcohol: None Drugs: None Lives: With Family Domestic Violence: Negative - Medications Home Medications: Home Medication Medication Instructions Recorded Type Acetaminophen 650 mg PO Q6HR PRN 05/16/16 History Acetaminophen 650 mg PO Q6HR PRN 05/16/16 History Bisacodyl [Laxative] 10 mg RC Q72HR PRN 05/16/16 History Ferrous Sulfate [Iron] 325 mg PO BID 05/16/16 History Lubiprostone [Amitiza] 24 mcg PO BID 05/16/16 History Menthol/Zinc Oxide [Risamine] 1 appl TP DAILY 05/16/16 History Multivitamin w/ Minerals 1 tab PO BID 05/16/16 History [Theragran M] Polyethylene Glycol 3350 [Miralax] 17 gm PO DAILY 05/16/16 History Simethicone 125 mg PO BID 05/16/16 History Simethicone [Gas Relief] 40 mg PO BID 05/16/16 History Levofloxacin [Levaquin] 500 mg PO DAILY #0 tablet 05/19/16 Rx - Allergies Allergies/Adverse Reactions: Allergies Allergy/AdvReac Type Severity Reaction Status Date / Time No Known Allergies Allergy Verified 05/16/16 00:05 Review of Systems - Review of Systems Constitutional: Report: Fever, Weakness Eyes: Report: No Significant ENT: Report: No Significant Respiratory: Report: No Significant Cardiovascular: Report: No Significant Gastrointestinal: Report: Other (Chronic constipation) Genitourinary: Report: No Significant Musculoskeletal: Report: Other (Non ambulatory) Skin: Report: No Significant Neurological: Report: Weakness, Confusion, Other (non verbal) Physical Exam - Physical Exam HEENT: Report: Ears Nose Throat within normal limits Neck: Report: Within normal limits Cardiovascular Systems: Report: Regular, Rate and Rhythm Respiratory: Report: Rhonchi Abdomen: Report: Non-tender to palpation Back: Report: Inspection of back is within normal limits. Extremities: Report: Non-tender to palpation., Extremities are contracted Skin: Report: Color of skin is within normal limits Neuro/Psych: Report: Weakness or sensory loss noted. - Lab Results All Lab Results last 24 hours: Laboratory Last Values WBC 14.5 Th/cmm (4.8-10.8) H D 09/28/16 14:41 RBC 3.25 Mil/cmm (3.80-5.80) L 09/28/16 14:41 Hgb 6.5 gm/dL (12.6-17.4) L* 09/28/16 14:41 Hct 23.8 % (39.0-49.0) L* D 09/29/16 04:05 MCV 63.0 fl (80-99) L 09/28/16 14:41 MCH 19.9 pg (27.0-31.0) L 09/28/16 14:41 MCHC Differential 31.6 pg (28.0-36.0) 09/28/16 14:41 RDW 18.3 % (11.5-20.0) 09/28/16 14:41 Plt Count 476 Th/cmm (150-400) H D 09/28/16 14:41 MPV 7.1 fl 09/28/16 14:41 Band Neutrophils % 1 % (0-10) 09/28/16 14:41 Neutrophils (Manual) 83 % (40-80) H 09/28/16 14:41 Lymphocytes 10 % (20-50) L 09/28/16 14:41 Monocytes 5 % (2-10) 09/28/16 14:41 Basophils 1 % (0-3) 09/28/16 14:41 Platelet Estimate INCREASED PLATELETS (NORMAL) 09/28/16 14:41 Polychromasia 2+ 09/28/16 14:41 Anisocytosis 1+ 09/28/16 14:41 Microcytosis 3+ 09/28/16 14:41 RBC Morph Micro Appear ABNORMAL (NORMAL) 09/28/16 14:41 PT 11.6 SECONDS (9.5-11.5) H 09/28/16 14:41 INR 1.11 (0.5-1.4) 09/28/16 14:41 PTT (Actin FS) 25.1 SECONDS (26.0-38.0) L 09/28/16 14:41 Sodium 122 mEq/L (136-145) L D 09/28/16 14:41 Potassium 3.8 mEq/L (3.5-5.1) 09/28/16 14:41 Chloride 96 mEq/L (98-107) L 09/28/16 14:41 Carbon Dioxide 23.3 mEq/L (21.0-31.0) 09/28/16 14:41 Anion Gap 6.5 (7.0-16.0) L 09/28/16 14:41 BUN 14 mg/dL (7-25) 09/28/16 14:41 Creatinine 0.6 mg/dL (0.7-1.3) L 09/28/16 14:41 Est GFR ( Amer) > 60.0 ml/min (>90) 09/28/16 14:41 Est GFR (Non-Af Amer) > 60.0 ml/min 09/28/16 14:41 BUN/Creatinine Ratio 23.3 09/28/16 14:41 Glucose 118 mg/dL (70-105) H 09/28/16 14:41 Whole Bld Lactic Acid 1.25 mmol/L (0.60-1.99) 09/28/16 14:41 Calcium 8.2 mg/dL (8.6-10.3) L 09/28/16 14:41 Total Bilirubin 0.4 mg/dL (0.3-1.0) 09/28/16 14:41 AST 17 U/L (13-39) 09/28/16 14:41 ALT 15 U/L (7-52) 09/28/16 14:41 Alkaline Phosphatase 98 U/L (34-104) 09/28/16 14:41 Creatine Kinase 34 U/L (30-223) 09/28/16 14:41 Troponin I < 0.01 ng/mL (0.01-0.05) L 09/28/16 14:41 Total Protein 5.9 gm/dL (6.0-8.3) L 09/28/16 14:41 Albumin 2.4 gm/dL (4.2-5.5) L 09/28/16 14:41 Globulin 3.5 gm/dL 09/28/16 14:41 Albumin/Globulin Ratio 0.7 (1.0-1.8) L 09/28/16 14:41 Urine Source CLEAN C 09/28/16 17:00 Urine Color YELLOW 09/28/16 17:00 Urine Clarity SLIGHT CLOUDY (CLEAR) 09/28/16 17:00 Urine pH 6.0 (4.6 - 8.0) 09/28/16 17:00 Ur Specific [place] >= 1.030 (1.005-1.030) 09/28/16 17:00 Urine Protein 30 mg/dL (NEGATIVE) H 09/28/16 17:00 Urine Glucose (UA) NEGATIVE mg/dL (NEGATIVE) 09/28/16 17:00 Urine Ketones NEGATIVE mg/dL (NEGATIVE) 09/28/16 17:00 Urine Blood LARGE (NEGATIVE) H 09/28/16 17:00 Urine Nitrate NEGATIVE (NEGATIVE) 09/28/16 17:00 Urine Bilirubin NEGATIVE (NEGATIVE) 09/28/16 17:00 Urine Urobilinogen 0.2 E.U./dL (0.2 - 1.0) 09/28/16 17:00 Ur Leukocyte Esterase NEGATIVE (NEGATIVE) 09/28/16 17:00 Urine RBC 25-50 /hpf (0-5) H 09/28/16 17:00 Urine WBC 2-5 /hpf (0-5) H 09/28/16 17:00 Ur Epithelial Cells MODERATE /lpf (FEW) 09/28/16 17:00 Amorphous Sediment FEW URATES (NONE SEEN) 09/28/16 17:00 Urine Bacteria 1+ /hpf (NONE SEEN) H 09/28/16 17:00 Urine Mucus FEW /lpf (FEW) 09/28/16 17:00 Blood Type B POSITIVE 09/28/16 16:32 Antibody Screen NEGATIVE 09/28/16 16:32 Crossmatch See Detail 09/28/16 16:32 Laboratory Results - last 24 hr 09/28/16 09/28/16 09/29/16 16:32 17:00 04:05 Hct 23.8 L* D Urine Source CLEAN C Urine Color YELLOW Urine Clarity SLIGHT CLOUDY Urine pH 6.0 Ur Specific [place] >= 1.030 Urine Protein 30 H Urine Glucose (UA) NEGATIVE Urine Ketones NEGATIVE Urine Blood LARGE H Urine Nitrate NEGATIVE Urine Bilirubin NEGATIVE Urine Urobilinogen 0.2 Ur Leukocyte Esterase NEGATIVE Urine RBC 25-50 H Urine WBC 2-5 H Ur Epithelial Cells MODERATE Amorphous Sediment FEW URATES Urine Bacteria 1+ H Urine Mucus FEW Blood Type B POSITIVE Antibody Screen NEGATIVE Crossmatch See Detail - Assessment Assessment: Patient is awake, non verbal, non ambulatory, resting in bed, in no acute distress. Dx: acute anemia, dehydration, clinic PNA, Dementia, HTN, S/P CVA, Possible GI bleeding. - Plan Plan: Patient in IV NS, Protonix, on levaquin, already transfused, consult with GI requested. Will continue to monitor.
[2016-09-29 09:08] LABS: HEMOGLOBIN 8.5 gm/dL (12.6-17.4); MEAN CORPUSCULAR HGB CONC 32.4 pg (28.0-36.0); MEAN PLATELET VOLUME 6.8 fl; PLATELET COUNT 418 Th/cmm (150-400); RED BLOOD COUNT 3.86 Mil/cmm (3.80-5.80)
[2016-09-29 09:26] LABS: ALB/GLOB RATIO 0.7 (1.0-1.8); ALKALINE PHOSPHATASE 97 U/L (34-104); ANION GAP 8.4 (7.0-16.0); BILIRUBIN,TOTAL 0.5 mg/dL (0.3-1.0); BUN - UREA NITROGEN 12 mg/dL (7-25); CALCIUM SERUM 7.9 mg/dL (8.6-10.3); CARBON DIOXIDE 22.4 mEq/L (21.0-31.0); CHLORIDE 99 mEq/L (98-107); CREATININE - SERUM 0.5 mg/dL (0.7-1.3); GLUCOSE 104 mg/dL (70-105); POTASSIUM SERUM 3.8 mEq/L (3.5-5.1); SGOT 16 U/L (13-39); SGPT/ALT 14 U/L (7-52); SODIUM SERUM 126 mEq/L (136-145)
[2016-09-29 10:14] LABS: HEMATOCRIT 26.2 % (39.0-49.0); WHITE BLOOD COUNT 16.3 Th/cmm (4.8-10.8)
[2016-09-29 10:16] LABS: ANISOCYTOSIS 2+; BAND NEUTROPHILE 3 % (0-10); EOSINOPHIL 1 % (0-5); MICROCYTOSIS 3+; NEUTROPHILS 81 % (40-80); PLATELET ESTIMATE ADEQUATE (NORMAL); PLATELET MORPHOLOGY NORMAL (NORMAL); TOTAL CELLS COUNTED 100
[2016-09-29] MEDS: Sodium Chloride 0.9% 1,000 ML IV SCH (13:52)
[2016-09-29 14:29] LABS: MEAN CELL VOLUME 67.8 fl (80-99)
[2016-09-29 18:07] LABS: URINE BILIRUBIN NEGATIVE (NEGATIVE); URINE BLOOD LARGE (NEGATIVE); URINE GLUCOSE (UA) NEGATIVE (NEGATIVE); URINE KETONE NEGATIVE (NEGATIVE); URINE PH 6.5 (4.6 - 8.0); URINE PROTEIN TRACE mg/dL (NEGATIVE); URINE UROBILINOGEN 0.2 E.U./dL (0.2 - 1.0)
[2016-09-29 18:22] LABS: URINE COLOR YELLOW
[2016-09-29 18:23] LABS: URINE BACTERIA FEW /hpf (NONE SEEN); URINE EPITHELIAL CELLS RARE /lpf (FEW); URINE RBC 25-50 /hpf (0-5); URINE WBC 0-2 /hpf (0-5)
[2016-09-29] MEDS: Levofloxacin 500mg/100mL 500 MG/100 ML BAG IV SCH (20:22)
[2016-09-29 22:11] LABS: HEMOGLOBIN 7.7 gm/dL (12.6-17.4)
[2016-09-30 06:33] LABS: MEAN PLATELET VOLUME 7.1 fl; RED CELL DISTRIBUTION WIDTH 24.6 % (11.5-20.0)
[2016-09-30 06:42] LABS: MEAN CORPUSCULAR HEMOGLOBIN 21.9 pg (27.0-31.0); PLATELET COUNT 374 Th/cmm (150-400); RED BLOOD COUNT 3.41 Mil/cmm (3.80-5.80)
[2016-09-30] MEDS: Sodium Chloride 0.9% 1,000 ML IV SCH ×2 (06:43→16:48)
[2016-09-30 06:46] LABS: INR 1.14 (0.5-1.4)
[2016-09-30 07:04] LABS: ALB/GLOB RATIO 0.6 (1.0-1.8); ALKALINE PHOSPHATASE 87 U/L (34-104); ANION GAP 7.1 (7.0-16.0); BILIRUBIN,TOTAL 0.5 mg/dL (0.3-1.0); BUN - UREA NITROGEN 13 mg/dL (7-25); CALCIUM SERUM 7.7 mg/dL (8.6-10.3); CARBON DIOXIDE 22.9 mEq/L (21.0-31.0); CHLORIDE 105 mEq/L (98-107); CREATININE - SERUM 0.5 mg/dL (0.7-1.3); GLUCOSE 85 mg/dL (70-105); SGOT 16 U/L (13-39); SGPT/ALT 11 U/L (7-52); SODIUM SERUM 131 mEq/L (136-145)
[2016-09-30 07:49] LABS: HEMATOCRIT 23.2 % (39.0-49.0); HEMOGLOBIN 7.4 gm/dL (12.6-17.4); WHITE BLOOD COUNT 10.1 Th/cmm (4.8-10.8)
[2016-09-30 07:57] LABS: TOTAL CELLS COUNTED 100
[2016-09-30 07:59] LABS: BAND NEUTROPHILE 5 % (0-10); EOSINOPHIL 1 % (0-5); NEUTROPHILS 67 % (40-80)
[2016-09-30 08:00] LABS: MICROCYTOSIS 1+
--- NOTE | 2016-09-30 08:22 | Diagnostic Imaging Report ---
CHEST X-RAY: AP view INDICATION: Fever COMPARISON: Chest x-ray 09/28/[address] abdomen and pelvis on 09/28/2016 FINDINGS: Low lung volumes are seen with severe distended loops of bowel noted. No evidence of gross free air. Increased right basal lung markings are noted. Cardiomegaly is noted. No focal consolidation identified. No definite effusions. IMPRESSION: Low lung volumes which may be due to diffuse distended loops of bowel pressing on the the diaphragm. Increased right basal lung markings are seen favoring atelectasis. Faint infiltrate is less likely. Cardiomegaly.
--- NOTE | 2016-09-30 09:19 | General Progress Note ---
Subjective - Review of Systems Service Date: 09/30/16 Subjective: Non Verbal Objective - Results Result Diagrams: 09/30/16 06:10 09/30/16 06:10 Recent Labs: Laboratory Last Values WBC 10.1 Th/cmm (4.8-10.8) D 09/30/16 06:10 RBC 3.41 Mil/cmm (3.80-5.80) L 09/30/16 06:10 Hgb 7.4 gm/dL (12.6-17.4) L* D 09/30/16 06:10 Hct 23.2 % (39.0-49.0) L* D 09/30/16 06:10 MCV 67.8 fl (80-99) L 09/29/16 09:03 MCH 21.9 pg (27.0-31.0) L 09/30/16 06:10 MCHC Differential 32.0 pg (28.0-36.0) 09/30/16 06:10 RDW 24.6 % (11.5-20.0) H 09/30/16 06:10 Plt Count 374 Th/cmm (150-400) 09/30/16 06:10 MPV 7.1 fl 09/30/16 06:10 Band Neutrophils % 5 % (0-10) 09/30/16 06:10 Neutrophils (Manual) 67 % (40-80) 09/30/16 06:10 Lymphocytes 12 % (20-50) L 09/30/16 06:10 Monocytes 15 % (2-10) H 09/30/16 06:10 Eosinophils 1 % (0-5) 09/30/16 06:10 Basophils 1 % (0-3) 09/28/16 14:41 Platelet Estimate ADEQUATE (NORMAL) 09/29/16 09:03 Platelet Morphology NORMAL (NORMAL) 09/29/16 09:03 Polychromasia 2+ 09/28/16 14:41 Anisocytosis 2+ 09/29/16 09:03 Microcytosis 1+ 09/30/16 06:10 RBC Morph Micro Appear ABNORMAL (NORMAL) 09/29/16 09:03 PT 12.0 SECONDS (9.5-11.5) H 09/30/16 06:10 INR 1.14 (0.5-1.4) 09/30/16 06:10 PTT (Actin FS) 28.8 SECONDS (26.0-38.0) 09/30/16 06:10 Sodium 131 mEq/L (136-145) L 09/30/16 06:10 Potassium 4.0 mEq/L (3.5-5.1) 09/30/16 06:10 Chloride 105 mEq/L (98-107) 09/30/16 06:10 Carbon Dioxide 22.9 mEq/L (21.0-31.0) 09/30/16 06:10 Anion Gap 7.1 (7.0-16.0) 09/30/16 06:10 BUN 13 mg/dL (7-25) 09/30/16 06:10 Creatinine 0.5 mg/dL (0.7-1.3) L 09/30/16 06:10 Est GFR ( Amer) > 60.0 ml/min (>90) 09/30/16 06:10 Est GFR (Non-Af Amer) > 60.0 ml/min 09/30/16 06:10 BUN/Creatinine Ratio 26.0 09/30/16 06:10 Glucose 85 mg/dL (70-105) 09/30/16 06:10 Whole Bld Lactic Acid 1.25 mmol/L (0.60-1.99) 09/28/16 14:41 Calcium 7.7 mg/dL (8.6-10.3) L 09/30/16 06:10 Total Bilirubin 0.5 mg/dL (0.3-1.0) 09/30/16 06:10 AST 16 U/L (13-39) 09/30/16 06:10 ALT 11 U/L (7-52) 09/30/16 06:10 Alkaline Phosphatase 87 U/L (34-104) 09/30/16 06:10 Lactate Dehydrogenase 132 U/L (140-271) L 09/30/16 06:10 Creatine Kinase 34 U/L (30-223) 09/28/16 14:41 Troponin I < 0.01 ng/mL (0.01-0.05) L 09/28/16 14:41 Total Protein 4.9 gm/dL (6.0-8.3) L 09/30/16 06:10 Albumin 1.9 gm/dL (4.2-5.5) L 09/30/16 06:10 Globulin 3.0 gm/dL 09/30/16 06:10 Albumin/Globulin Ratio 0.6 (1.0-1.8) L 09/30/16 06:10 Urine Source [place] 09/29/16 16:30 Urine Color YELLOW 09/29/16 16:30 Urine Clarity SLIGHT CLOUDY (CLEAR) 09/29/16 16:30 Urine pH 6.5 (4.6 - 8.0) 09/29/16 16:30 Ur Specific [place] 1.015 (1.005-1.030) 09/29/16 16:30 Urine Protein TRACE mg/dL (NEGATIVE) 09/29/16 16:30 Urine Glucose (UA) NEGATIVE mg/dL (NEGATIVE) 09/29/16 16:30 Urine Ketones NEGATIVE mg/dL (NEGATIVE) 09/29/16 16:30 Urine Blood LARGE (NEGATIVE) H 09/29/16 16:30 Urine Nitrate NEGATIVE (NEGATIVE) 09/29/16 16:30 Urine Bilirubin NEGATIVE (NEGATIVE) 09/29/16 16:30 Urine Urobilinogen 0.2 E.U./dL (0.2 - 1.0) 09/29/16 16:30 Ur Leukocyte Esterase NEGATIVE (NEGATIVE) 09/29/16 16:30 Urine RBC 25-50 /hpf (0-5) H 09/29/16 16:30 Urine WBC 0-2 /hpf (0-5) 09/29/16 16:30 Ur Epithelial Cells RARE /lpf (FEW) 09/29/16 16:30 Amorphous Sediment FEW URATES (NONE SEEN) 09/28/16 17:00 Urine Bacteria FEW /hpf (NONE SEEN) 09/29/16 16:30 Urine Mucus FEW /lpf (FEW) 09/28/16 17:00 Blood Type B POSITIVE 09/28/16 16:32 Antibody Screen NEGATIVE 09/28/16 16:32 Crossmatch See Detail 09/28/16 16:32 - Physical Exam Vitals and I&O: Vital Signs Temp 98.5 F 09/30/16 04:00 Pulse 98 09/30/16 04:00 Resp 18 09/30/16 04:00 BP 106/68 09/30/16 04:00 Pulse Ox 98 09/30/16 04:00 Intake & Output 09/29/16 09/30/16 09/30/16 18:59 06:59 18:59 Intake Total 1000 1100 Output Total 1200 Balance -200 1100 Weight (lbs) 62.596 kg 62.596 kg Intake: Intake, IV Amount 1000 1100 Levofloxacin 500mg/100mL 100 500 mg In 100 ml @ 100 mls/hr IV Q24HR [facility] Rx#: [id number] Sodium Chloride 0.9% 1, 1000 1000 000 ml @ 90 mls/hr IV . Q11H7M [facility] Rx#:[id number] Oral 0 Output: Urine 1200 Other: # Voids 2 Active Medications: Current Medications Acetaminophen (Tylenol) 650 mg PO Q6HR PRN PRN Reason: TEMP 100.0 AND ABOVE Stop: 11/27/16 20:42 Last Admin: 09/29/16 15:58 Dose: 650 mg Sodium Chloride (Nacl 0.9%) 1,000 mls @ 90 mls/hr IV .Q11H7M [facility] Stop: 11/27/16 20:31 Last Admin: 09/30/16 06:43 Dose: 90 mls/hr Levofloxacin (Levaquin Pb) 500 mg in 100 mls @ 100 mls/hr IV Q24HR [facility] Stop: 11/28/16 20:59 Last Infusion: 09/29/16 21:22 Dose: Infused Pantoprazole Sodium (Protonix) 40 mg IVP DAILY [facility] Stop: 11/28/16 08:59 Last Admin: 09/29/16 13:54 Dose: Not Given General: Other (Sleeping but arousable) HEENT: Atraumatic Neck: Supple Cardiovascular: Regular rate Lungs: Other (Rude respiration) Abdomen: Bowel sounds, Soft Extremities: Other (No edema) Neurological: Other (Non ambulatory) Skin: Other (Warm and dry) Psych/Mental Status: Other (Confused, not oriented, non verbal) - Procedures Procedures: Procedures Procedure Code Date BLOOD TRANSFUSION SERVICE 52850 09/28/16 TRANSFUSE NONAUT RED BLOOD CELLS IN PERIPH VEIN, PERC 27610P2 09/28/16 Assessment/Plan - Assessment Assessment: Patient is awake, non verbal, non ambulatory, resting in bed, in no acute distress. Dx: acute anemia, dehydration, clinic PNA, Dementia, HTN, S/P CVA, Possible GI bleeding. Abdominal CT shows possible stomach mass. Hgb lowering. - Plan Plan: Patient in IV NS, Protonix, on levaquin, already transfused, Case will be discuss with GI. Will continue to monitor. Nutritional Asmnt/Malnutr-PDOC - Dietary Evaluation Malnutrition Findings (Please click <Entered> for more info): Nutritional Asmnt/Malnutrition Start: 09/29/16 16: 06 Text: Status: Complete Freq: Document 09/29/16 19:24 [facility] (Rec: 09/29/16 19:32 [facility] [id number]) Nutritional Asmnt/Malnutrition Patient General Information Nutritional Screening High Risk Screening Diagnosis Acute anemia, dehydration, clinical pneumonia Pertinent Medical Hx/Surgical Hx CHF, HTN, dementia, old CVA, muscle atrophy Subjective Information Pt is a 66-year-old male from [facility]) admitted with chief complaint of fever. Pt is nonverbal and a poor historian. Pt was laying flat in bed during time of visit. Pt appears well nourished with no signs of muscle or fat depletion. Current Diet Order/ Nutrition Support NPO Patient / S.O Can't verbalize diet edu Pertinent Medications NaCl 0.9% Pertinent Labs (09/29) Na 126L (improving), Albumin 2.2L Nutritional Hx/Data Height 1.52 m Height (Calculated Centimeters) 152.4 Current Weight (lbs) 62.596 kg Weight (Calculated Kilograms) 62.6 Weight (Calculated Grams) 97915.7 [place] Body Weight 106 % [place] Body Weight 130 Weight Status Overweight GI Symptoms GI Symptoms Constipation Food Allergies No Cultural/Ethnic/Temple Belief No cultural or jew preferences noted. Per chart, at [facility], pt received 8 oz prune juice at dinner, no spicy foods, may soak crackers, bread, and cookie with milk. Clear liquid diet every Monday at 1300. Usual diet at home Medium ground diet, Ensure BID Skin Integrity/Comment: Vinod 12, improved to 15. Skin intact. Estimated Nutritional Goals BEE in Kcals: Using Current wt Calories/Kcals/Kg Based on current wt 62.7 kg for wt maintenance Kcals Calculated 1568 kcals/day Protein: Using Current wt Protein g/kg: Based on current wt 62.7 kg for wt maintenance Protein Calculated 63-75 gm/day (1-1.2 gm/kg) Fluid: ml Per MD/DO due dehydration Nutritional Problem 1. Problem Problem Inadequate energy/protein intake related to Etiology pending diagnostic procedures as evidenced by Signs/Symptoms: current NPO status. Malnutrition Alert Protein-Calorie Malnutrition N/A Is there a minimum of two criteria No selected? Query Text:Check all the applicable criteria. A minimum of two criteria are recommended for diagnosis of either severe or non-severe malnutrition. Malnutrition Related to Morbid Obesity Malnutrition related to morbid obesity No Intervention/Recommendation Comments 1. When medically appropriate, recommend mechanical soft ground diet with Boost BID. FNS to provide prune juice with dinner, to honor prior preferences. Expected Outcomes/Goals Expected Outcomes/Goals Have pt meet at least 75% of estimated nutritional needs. Physician Parameters for PEM Normal Weight % 90% - 110% (Normal) Serum Albumin (g/dl) <2.4 (Severe)
[2016-09-30 14:12] LABS: MEAN CELL VOLUME 68.2 fl (80-99)
--- NOTE | 2016-09-30 20:59 | Consultation ---
DATE OF CONSULTATION: 09/29/2016 REQUESTING PHYSICIAN: Dr. Jim Rosales. REASON FOR CONSULTATION: Anemia and possible GI bleeding. HISTORY OF PRESENT ILLNESS: A 66-year-old male with a history of nonverbal status, with cerebral palsy, and mental retardation brought into the ER for low hemoglobin and possible GI bleed. We were asked to evaluate the patient for consideration of endoscopic workup. PAST MEDICAL HISTORY: Notable for hydrocephalus requiring surgery, jail resident, possible old stroke, encephalopathy, and hypertension. MEDICATIONS: Here are Tylenol, Levaquin, and Protonix. ALLERGIES: None. SOCIAL HISTORY: senior living resident. No known tobacco, alcohol or drugs. FAMILY HISTORY: Noncontributory. REVIEW OF SYSTEMS: As per history of present illness, otherwise negative. PHYSICAL EXAMINATION: VITAL SIGNS: Temperature 96.0, blood pressure is 118/57, pulse of 90, respirations 18, O2 sats 94%. GENERAL: The patient is a well-developed, well-nourished male in no acute distress. HEENT: Sclerae are nonicteric. Oropharynx is clear. CARDIOVASCULAR: Regular rate and rhythm. LUNGS: Clear to auscultation bilaterally. ABDOMEN: Soft, nontender, nondistended, normoactive bowel sounds. EXTREMITIES: No edema. LABORATORY DATA: Hemoglobin initially of 6.5, WBC of 14.5, platelet count of 476. INR normal. Creatinine normal. Liver enzymes normal. CT of the abdomen and pelvis is pending. IMPRESSION: 1. Anemia, rule out gastrointestinal bleeding, unknown of previous endoscopic workup, pending blood transfusion. 2. Abdominal distention, rule out abdominal mass versus constipation versus ileus versus partial bowel obstruction. 3. Pneumonia and fever. 4. History of dementia and old stroke and encephalopathy. RECOMMENDATIONS: 1. Check anemia labs. 2. Check stool occult blood test. 3. Consider upper endoscopy pending consent from durable power of regulatory attorney. May need colonoscopy as well if not done previously and if upper endoscopy is negative. 4. Followup CT of the abdomen and pelvis results. Thank you, Dr. Jim Rosales for involving us in the care of your patient. If you have any further questions, please call us. JOB# [id number]
--- NOTE | 2016-09-30 21:07 | Operative Report ---
DATE OF SURGERY: 09/30/2016 PROCEDURE: Esophagogastroduodenoscopy with biopsy. PREPROCEDURE DIAGNOSES: Anemia and possible gastrointestinal bleed. POSTPROCEDURE DIAGNOSES: Large 10 cm gastric submucosal mass with central ulceration x 2. Mass suspicious for neoplasm; GI stromal tumor, most likely; status post biopsy and CLOtest. INDICATIONS: A 66-year-old male with anemia and possible GI bleed. CONSENT: Informed consent was obtained from the patient's brother prior to procedure after detailed explanation of risks, benefits, alternatives including but not limited to infection, bleeding, perforation, and . ANESTHESIA: Monitored anesthesia care per Dr. Medel. DESCRIPTION OF PROCEDURE AND FINDINGS: The procedure took place as an inpatient in the GI suite of [facility]. The patient was kept in the left lateral decubitus position; adequate sedation was achieved with above medication. An Olympus diagnostic upper endoscope was advanced through the patient's mouth and into the esophagus. The esophagus appeared normal with no evidence of esophagitis, stricture, or mass lesions. The Z line was normal appearing at about 40 cm from the gums. Retroflexion in the stomach revealed no GE junction masses or varices. In the gastric body along the greater curvature mid body, there was a large submucosal appearing 10 cm gastric mass with central ulceration x 2. This is suspicious for neoplasm or GI stromal tumor being more likely than adenocarcinoma or lymphoma. Biopsies were obtained from the ulcer edges and the mass itself and submitted for histopathology. Random biopsies were also obtained from the antrum and the body and submitted for CLOtest. The pyloric channel and duodenum up to second portion appeared normal. The scope was then withdrawn from the patient. The patient tolerated the procedure well and no complications are anticipated. RECOMMENDATIONS: 1. Follow up biopsy results. 2. Protonix. 3. Surgical evaluation. 4. CT has been reviewed and it did confirm the presence of a gastric mass, perhaps extending to the transverse colon, also with evidence of fecal impaction. We will provide an enema to clear this. 5. Findings discussed over the phone with Dr. Rosales. Further recommendations as per him. Thank you, Dr. Jim Rosales for involving us in the care of your patient. If you have any further questions, please call us. [facility]# [id number] [facility]
[2016-09-30] MEDS: Levofloxacin 500mg/100mL 500 MG/100 ML BAG IV SCH (21:20)
[2016-10-01 07:47] LABS: MEAN CORPUSCULAR HEMOGLOBIN 21.8 pg (27.0-31.0); MEAN CORPUSCULAR HGB CONC 31.8 pg (28.0-36.0); MEAN PLATELET VOLUME 7.3 fl; PLATELET COUNT 399 Th/cmm (150-400); RED BLOOD COUNT 3.44 Mil/cmm (3.80-5.80); RED CELL DISTRIBUTION WIDTH 24.6 % (11.5-20.0); WHITE BLOOD COUNT 10.5 Th/cmm (4.8-10.8)
[2016-10-01] MEDS: Sodium Chloride 0.9% 1,000 ML IV SCH (07:47)
[2016-10-01 07:59] LABS: ALB/GLOB RATIO 0.6 (1.0-1.8); ALKALINE PHOSPHATASE 90 U/L (34-104); ANION GAP 9.7 (7.0-16.0); BILIRUBIN,TOTAL 0.4 mg/dL (0.3-1.0); BUN - UREA NITROGEN 12 mg/dL (7-25); CHLORIDE 106 mEq/L (98-107); CREATININE - SERUM 0.5 mg/dL (0.7-1.3); GLUCOSE 77 mg/dL (70-105); POTASSIUM SERUM 3.7 mEq/L (3.5-5.1); SGOT 18 U/L (13-39); SGPT/ALT 14 U/L (7-52); SODIUM SERUM 134 mEq/L (136-145)
[2016-10-01 09:01] LABS: HEMATOCRIT 23.5 % (39.0-49.0); HEMOGLOBIN 7.5 gm/dL (12.6-17.4); MEAN CELL VOLUME 68.3 fl (80-99)
[2016-10-01 09:38] LABS: BAND NEUTROPHILE 7 % (0-10); BASOPHIL 1 % (0-3); EOSINOPHIL 1 % (0-5); NEUTROPHILS 72 % (40-80); TOTAL CELLS COUNTED 100
[2016-10-01 09:43] LABS: ANISOCYTOSIS 2+; MICROCYTOSIS 3+; POIKILOCYTOSIS 1+
[2016-10-01 09:44] LABS: PLATELET ESTIMATE ADEQUATE (NORMAL); PLATELET MORPHOLOGY NORMAL (NORMAL)
[2016-10-01 10:12] LABS: FERRITIN 49 ng/mL (30-400); FOLIC ACID 19.4 ng/mL (>3.0); IRON SATURATION 5 % (15-55); TIBC (LCI) 161 ug/dL (250-450); UIBC 153 ug/dL (111-343)
[2016-10-01] MEDS: ESOMEPRAZOLE 40 MG IVP SCH (11:08)
--- NOTE | 2016-10-01 11:18 | General Progress Note ---
Subjective - Review of Systems Service Date: 10/01/16 Events since last encounter: chart reviewd EGD noted due to bleeding, will likely need partial gastrectomy to get around the mass to have 2 PRBC Objective - Results Result Diagrams: 10/01/16 06:30 10/01/16 06:30 Recent Labs: Laboratory Last Values WBC 10.5 Th/cmm (4.8-10.8) 10/01/16 06:30 RBC 3.44 Mil/cmm (3.80-5.80) L 10/01/16 06:30 Hgb 7.5 gm/dL (12.6-17.4) L* 10/01/16 06:30 Hct 23.5 % (39.0-49.0) L* 10/01/16 06:30 MCV 68.3 fl (80-99) L 10/01/16 06:30 MCH 21.8 pg (27.0-31.0) L 10/01/16 06:30 MCHC Differential 31.8 pg (28.0-36.0) 10/01/16 06:30 RDW 24.6 % (11.5-20.0) H 10/01/16 06:30 Plt Count 399 Th/cmm (150-400) 10/01/16 06:30 MPV 7.3 fl 10/01/16 06:30 Band Neutrophils % 7 % (0-10) 10/01/16 06:30 Neutrophils (Manual) 72 % (40-80) 10/01/16 06:30 Lymphocytes 13 % (20-50) L 10/01/16 06:30 Monocytes 6 % (2-10) 10/01/16 06:30 Eosinophils 1 % (0-5) 10/01/16 06:30 Basophils 1 % (0-3) 10/01/16 06:30 Platelet Estimate ADEQUATE (NORMAL) 10/01/16 06:30 Platelet Morphology NORMAL (NORMAL) 10/01/16 06:30 Polychromasia 2+ 09/28/16 14:41 Poikilocytosis 1+ 10/01/16 06:30 Anisocytosis 2+ 10/01/16 06:30 Microcytosis 3+ 10/01/16 06:30 RBC Morph Micro Appear ABNORMAL (NORMAL) 10/01/16 06:30 PT 12.0 SECONDS (9.5-11.5) H 09/30/16 06:10 INR 1.14 (0.5-1.4) 09/30/16 06:10 PTT (Actin FS) 28.8 SECONDS (26.0-38.0) 09/30/16 06:10 Sodium 134 mEq/L (136-145) L 10/01/16 06:30 Potassium 3.7 mEq/L (3.5-5.1) 10/01/16 06:30 Chloride 106 mEq/L (98-107) 10/01/16 06:30 Carbon Dioxide 22.0 mEq/L (21.0-31.0) 10/01/16 06:30 Anion Gap 9.7 (7.0-16.0) 10/01/16 06:30 BUN 12 mg/dL (7-25) 10/01/16 06:30 Creatinine 0.5 mg/dL (0.7-1.3) L 10/01/16 06:30 Est GFR ( Amer) > 60.0 ml/min (>90) 10/01/16 06:30 Est GFR (Non-Af Amer) > 60.0 ml/min 10/01/16 06:30 BUN/Creatinine Ratio 24.0 10/01/16 06:30 Glucose 77 mg/dL (70-105) 10/01/16 06:30 Whole Bld Lactic Acid 1.25 mmol/L (0.60-1.99) 09/28/16 14:41 Calcium 8.0 mg/dL (8.6-10.3) L 10/01/16 06:30 Iron 8 ug/dL (38-169) L 09/30/16 06:10 TIBC 161 ug/dL (250-450) L 09/30/16 06:10 Iron Saturation 5 % (15-55) L 09/30/16 06:10 Unsaturated IBC 153 ug/dL (111-343) 09/30/16 06:10 Ferritin 49 ng/mL (30-400) 09/30/16 06:10 Total Bilirubin 0.4 mg/dL (0.3-1.0) 10/01/16 06:30 AST 18 U/L (13-39) 10/01/16 06:30 ALT 14 U/L (7-52) 10/01/16 06:30 Alkaline Phosphatase 90 U/L (34-104) 10/01/16 06:30 Lactate Dehydrogenase 132 U/L (140-271) L 09/30/16 06:10 Creatine Kinase 34 U/L (30-223) 09/28/16 14:41 Troponin I < 0.01 ng/mL (0.01-0.05) L 09/28/16 14:41 Total Protein 5.2 gm/dL (6.0-8.3) L 10/01/16 06:30 Albumin 2.0 gm/dL (4.2-5.5) L 10/01/16 06:30 Globulin 3.2 gm/dL 10/01/16 06:30 Albumin/Globulin Ratio 0.6 (1.0-1.8) L 10/01/16 06:30 Vitamin B12 978 pg/mL (211-946) H 09/30/16 06:10 Folic Acid 19.4 ng/mL (>3.0) 09/30/16 06:10 Urine Source [place] 09/29/16 16:30 Urine Color YELLOW 09/29/16 16:30 Urine Clarity SLIGHT CLOUDY (CLEAR) 09/29/16 16:30 Urine pH 6.5 (4.6 - 8.0) 09/29/16 16:30 Ur Specific [place] 1.015 (1.005-1.030) 09/29/16 16:30 Urine Protein TRACE mg/dL (NEGATIVE) 09/29/16 16:30 Urine Glucose (UA) NEGATIVE mg/dL (NEGATIVE) 09/29/16 16:30 Urine Ketones NEGATIVE mg/dL (NEGATIVE) 09/29/16 16:30 Urine Blood LARGE (NEGATIVE) H 09/29/16 16:30 Urine Nitrate NEGATIVE (NEGATIVE) 09/29/16 16:30 Urine Bilirubin NEGATIVE (NEGATIVE) 09/29/16 16:30 Urine Urobilinogen 0.2 E.U./dL (0.2 - 1.0) 09/29/16 16:30 Ur Leukocyte Esterase NEGATIVE (NEGATIVE) 09/29/16 16:30 Urine RBC 25-50 /hpf (0-5) H 09/29/16 16:30 Urine WBC 0-2 /hpf (0-5) 09/29/16 16:30 Ur Epithelial Cells RARE /lpf (FEW) 09/29/16 16:30 Amorphous Sediment FEW URATES (NONE SEEN) 09/28/16 17:00 Urine Bacteria FEW /hpf (NONE SEEN) 09/29/16 16:30 Urine Mucus FEW /lpf (FEW) 09/28/16 17:00 Stool Occult Blood NEGATIVE (NEGATIVE) 09/30/16 17:11 Blood Type B POSITIVE 09/28/16 16:32 Antibody Screen NEGATIVE 09/28/16 16:32 Crossmatch See Detail 09/28/16 16:32 - Physical Exam Vitals and I&O: Vital Signs Temp 97.3 F 10/01/16 08:00 Pulse 108 10/01/16 08:00 Resp 18 10/01/16 08:00 BP 108/73 10/01/16 08:00 Pulse Ox 94 10/01/16 08:00 Intake & Output 09/30/16 10/01/16 10/01/16 18:59 06:59 18:59 Intake Total 907.5 1100 Output Total 500 700 Balance 407.5 1100 -700 Weight (lbs) 62.596 kg 62.596 kg Intake: Intake, IV Amount 907.5 1100 Levofloxacin 500mg/100mL 100 500 mg In 100 ml @ 100 mls/hr IV Q24HR [facility] Rx#: [id number] Sodium Chloride 0.9% 1, 907.5 1000 000 ml @ 90 mls/hr IV . Q11H7M [facility] Rx#:[id number] Oral 0 Output: Urine 500 700 Other: Stool Characteristics Soft Active Medications: Current Medications Acetaminophen (Tylenol) 650 mg PO Q6HR PRN PRN Reason: TEMP 100.0 AND ABOVE Stop: 11/27/16 20:42 Last Admin: 09/29/16 15:58 Dose: 650 mg Sodium Chloride (Nacl 0.9%) 1,000 mls @ 90 mls/hr IV .Q11H7M [facility] Stop: 11/27/16 20:31 Last Admin: 10/01/16 07:47 Dose: 90 mls/hr Levofloxacin (Levaquin Pb) 500 mg in 100 mls @ 100 mls/hr IV Q24HR [facility] Stop: 11/28/16 20:59 Last Infusion: 10/01/16 02:19 Dose: Infused Miscellaneous (Misc Injection) 1 vial IVP QDAC [facility] Stop: 11/30/16 09:59 Last Admin: 10/01/16 11:08 Dose: 1 vial General: Other (Sleeping but arousable) HEENT: Atraumatic Neck: Supple Cardiovascular: Regular rate Lungs: Other (Rude respiration) Abdomen: Bowel sounds, Soft Extremities: Other (No edema) Neurological: Other (Non ambulatory) Skin: Other (Warm and dry) Psych/Mental Status: Other (Confused, not oriented, non verbal) - Procedures Procedures: Procedures Procedure Code Date BLOOD TRANSFUSION SERVICE 58749 09/28/16 TRANSFUSE NONAUT RED BLOOD CELLS IN PERIPH VEIN, PERC 97720Y1 09/28/16 Nutritional Asmnt/Malnutr-PDOC - Dietary Evaluation Malnutrition Findings (Please click <Entered> for more info): Nutritional Asmnt/Malnutrition Start: 09/29/16 16: 06 Text: Status: Complete Freq: Document 09/29/16 19:24 [facility] (Rec: 09/29/16 19:32 [facility] [id number]) Nutritional Asmnt/Malnutrition Patient General Information Nutritional Screening High Risk Screening Diagnosis Acute anemia, dehydration, clinical pneumonia Pertinent Medical Hx/Surgical Hx CHF, HTN, dementia, old CVA, muscle atrophy Subjective Information Pt is a 66-year-old male from [facility]) admitted with chief complaint of fever. Pt is nonverbal and a poor historian. Pt was laying flat in bed during time of visit. Pt appears well nourished with no signs of muscle or fat depletion. Current Diet Order/ Nutrition Support NPO Patient / S.O Can't verbalize diet edu Pertinent Medications NaCl 0.9% Pertinent Labs (09/29) Na 126L (improving), Albumin 2.2L Nutritional Hx/Data Height 1.52 m Height (Calculated Centimeters) 152.4 Current Weight (lbs) 62.596 kg Weight (Calculated Kilograms) 62.6 Weight (Calculated Grams) 47666.7 [place] Body Weight 106 % [place] Body Weight 130 Weight Status Overweight GI Symptoms GI Symptoms Constipation Food Allergies No Cultural/Ethnic/Yazidism Belief No cultural or hoahaoism preferences noted. Per chart, at [facility], pt received 8 oz prune juice at dinner, no spicy foods, may soak crackers, bread, and cookie with milk. Clear liquid diet every Monday at 1300. Usual diet at home Medium ground diet, Ensure BID Skin Integrity/Comment: Vinod 12, improved to 15. Skin intact. Estimated Nutritional Goals BEE in Kcals: Using Current wt Calories/Kcals/Kg Based on current wt 62.7 kg for wt maintenance Kcals Calculated 1568 kcals/day Protein: Using Current wt Protein g/kg: Based on current wt 62.7 kg for wt maintenance Protein Calculated 63-75 gm/day (1-1.2 gm/kg) Fluid: ml Per MD/DO due dehydration Nutritional Problem 1. Problem Problem Inadequate energy/protein intake related to Etiology pending diagnostic procedures as evidenced by Signs/Symptoms: current NPO status. Malnutrition Alert Protein-Calorie Malnutrition N/A Is there a minimum of two criteria No selected? Query Text:Check all the applicable criteria. A minimum of two criteria are recommended for diagnosis of either severe or non-severe malnutrition. Malnutrition Related to Morbid Obesity Malnutrition related to morbid obesity No Intervention/Recommendation Comments 1. When medically appropriate, recommend mechanical soft ground diet with Boost BID. FNS to provide prune juice with dinner, to honor prior preferences. Expected Outcomes/Goals Expected Outcomes/Goals Have pt meet at least 75% of estimated nutritional needs. Physician Parameters for PEM Normal Weight % 90% - 110% (Normal) Serum Albumin (g/dl) <2.4 (Severe)
--- NOTE | 2016-10-01 14:40 | General Progress Note ---
Subjective - Review of Systems Service Date: 10/01/16 Subjective: Non Verbal Objective - Results Result Diagrams: 10/01/16 06:30 10/01/16 06:30 Recent Labs: Laboratory Last Values WBC 10.5 Th/cmm (4.8-10.8) 10/01/16 06:30 RBC 3.44 Mil/cmm (3.80-5.80) L 10/01/16 06:30 Hgb 7.5 gm/dL (12.6-17.4) L* 10/01/16 06:30 Hct 23.5 % (39.0-49.0) L* 10/01/16 06:30 MCV 68.3 fl (80-99) L 10/01/16 06:30 MCH 21.8 pg (27.0-31.0) L 10/01/16 06:30 MCHC Differential 31.8 pg (28.0-36.0) 10/01/16 06:30 RDW 24.6 % (11.5-20.0) H 10/01/16 06:30 Plt Count 399 Th/cmm (150-400) 10/01/16 06:30 MPV 7.3 fl 10/01/16 06:30 Band Neutrophils % 7 % (0-10) 10/01/16 06:30 Neutrophils (Manual) 72 % (40-80) 10/01/16 06:30 Lymphocytes 13 % (20-50) L 10/01/16 06:30 Monocytes 6 % (2-10) 10/01/16 06:30 Eosinophils 1 % (0-5) 10/01/16 06:30 Basophils 1 % (0-3) 10/01/16 06:30 Platelet Estimate ADEQUATE (NORMAL) 10/01/16 06:30 Platelet Morphology NORMAL (NORMAL) 10/01/16 06:30 Polychromasia 2+ 09/28/16 14:41 Poikilocytosis 1+ 10/01/16 06:30 Anisocytosis 2+ 10/01/16 06:30 Microcytosis 3+ 10/01/16 06:30 RBC Morph Micro Appear ABNORMAL (NORMAL) 10/01/16 06:30 PT 12.0 SECONDS (9.5-11.5) H 09/30/16 06:10 INR 1.14 (0.5-1.4) 09/30/16 06:10 PTT (Actin FS) 28.8 SECONDS (26.0-38.0) 09/30/16 06:10 Sodium 134 mEq/L (136-145) L 10/01/16 06:30 Potassium 3.7 mEq/L (3.5-5.1) 10/01/16 06:30 Chloride 106 mEq/L (98-107) 10/01/16 06:30 Carbon Dioxide 22.0 mEq/L (21.0-31.0) 10/01/16 06:30 Anion Gap 9.7 (7.0-16.0) 10/01/16 06:30 BUN 12 mg/dL (7-25) 10/01/16 06:30 Creatinine 0.5 mg/dL (0.7-1.3) L 10/01/16 06:30 Est GFR ( Amer) > 60.0 ml/min (>90) 10/01/16 06:30 Est GFR (Non-Af Amer) > 60.0 ml/min 10/01/16 06:30 BUN/Creatinine Ratio 24.0 10/01/16 06:30 Glucose 77 mg/dL (70-105) 10/01/16 06:30 Whole Bld Lactic Acid 1.25 mmol/L (0.60-1.99) 09/28/16 14:41 Calcium 8.0 mg/dL (8.6-10.3) L 10/01/16 06:30 Iron 8 ug/dL (38-169) L 09/30/16 06:10 TIBC 161 ug/dL (250-450) L 09/30/16 06:10 Iron Saturation 5 % (15-55) L 09/30/16 06:10 Unsaturated IBC 153 ug/dL (111-343) 09/30/16 06:10 Ferritin 49 ng/mL (30-400) 09/30/16 06:10 Total Bilirubin 0.4 mg/dL (0.3-1.0) 10/01/16 06:30 AST 18 U/L (13-39) 10/01/16 06:30 ALT 14 U/L (7-52) 10/01/16 06:30 Alkaline Phosphatase 90 U/L (34-104) 10/01/16 06:30 Lactate Dehydrogenase 132 U/L (140-271) L 09/30/16 06:10 Creatine Kinase 34 U/L (30-223) 09/28/16 14:41 Troponin I < 0.01 ng/mL (0.01-0.05) L 09/28/16 14:41 Total Protein 5.2 gm/dL (6.0-8.3) L 10/01/16 06:30 Albumin 2.0 gm/dL (4.2-5.5) L 10/01/16 06:30 Globulin 3.2 gm/dL 10/01/16 06:30 Albumin/Globulin Ratio 0.6 (1.0-1.8) L 10/01/16 06:30 Vitamin B12 978 pg/mL (211-946) H 09/30/16 06:10 Folic Acid 19.4 ng/mL (>3.0) 09/30/16 06:10 Urine Source [place] 09/29/16 16:30 Urine Color YELLOW 09/29/16 16:30 Urine Clarity SLIGHT CLOUDY (CLEAR) 09/29/16 16:30 Urine pH 6.5 (4.6 - 8.0) 09/29/16 16:30 Ur Specific [place] 1.015 (1.005-1.030) 09/29/16 16:30 Urine Protein TRACE mg/dL (NEGATIVE) 09/29/16 16:30 Urine Glucose (UA) NEGATIVE mg/dL (NEGATIVE) 09/29/16 16:30 Urine Ketones NEGATIVE mg/dL (NEGATIVE) 09/29/16 16:30 Urine Blood LARGE (NEGATIVE) H 09/29/16 16:30 Urine Nitrate NEGATIVE (NEGATIVE) 09/29/16 16:30 Urine Bilirubin NEGATIVE (NEGATIVE) 09/29/16 16:30 Urine Urobilinogen 0.2 E.U./dL (0.2 - 1.0) 09/29/16 16:30 Ur Leukocyte Esterase NEGATIVE (NEGATIVE) 09/29/16 16:30 Urine RBC 25-50 /hpf (0-5) H 09/29/16 16:30 Urine WBC 0-2 /hpf (0-5) 09/29/16 16:30 Ur Epithelial Cells RARE /lpf (FEW) 09/29/16 16:30 Amorphous Sediment FEW URATES (NONE SEEN) 09/28/16 17:00 Urine Bacteria FEW /hpf (NONE SEEN) 09/29/16 16:30 Urine Mucus FEW /lpf (FEW) 09/28/16 17:00 Stool Occult Blood NEGATIVE (NEGATIVE) 09/30/16 17:11 Helicobacter pylori Ab NEGATIVE (NEGATIVE) 09/30/16 14:00 Blood Type B POSITIVE 09/28/16 16:32 Antibody Screen NEGATIVE 09/28/16 16:32 Crossmatch See Detail 09/28/16 16:32 - Physical Exam Vitals and I&O: Vital Signs Temp 97.3 F 10/01/16 08:00 Pulse 108 10/01/16 08:00 Resp 18 10/01/16 08:00 BP 108/73 10/01/16 08:00 Pulse Ox 94 10/01/16 08:00 Intake & Output 09/30/16 10/01/16 10/01/16 18:59 06:59 18:59 Intake Total 907.5 1100 Output Total 500 700 Balance 407.5 1100 -700 Weight (lbs) 62.596 kg 62.596 kg Intake: Intake, IV Amount 907.5 1100 Levofloxacin 500mg/100mL 100 500 mg In 100 ml @ 100 mls/hr IV Q24HR [facility] Rx#: [id number] Sodium Chloride 0.9% 1, 907.5 1000 000 ml @ 90 mls/hr IV . Q11H7M [facility] Rx#:[id number] Oral 0 Output: Urine 500 700 Other: Stool Characteristics Soft Active Medications: Current Medications Acetaminophen (Tylenol) 650 mg PO Q6HR PRN PRN Reason: TEMP 100.0 AND ABOVE Stop: 11/27/16 20:42 Last Admin: 09/29/16 15:58 Dose: 650 mg Sodium Chloride (Nacl 0.9%) 1,000 mls @ 90 mls/hr IV .Q11H7M [facility] Stop: 11/27/16 20:31 Last Admin: 10/01/16 07:47 Dose: 90 mls/hr Levofloxacin (Levaquin Pb) 500 mg in 100 mls @ 100 mls/hr IV Q24HR [facility] Stop: 11/28/16 20:59 Last Infusion: 10/01/16 02:19 Dose: Infused Miscellaneous (Misc Injection) 1 vial IVP QDAC [facility] Stop: 11/30/16 09:59 Last Admin: 10/01/16 11:08 Dose: 1 vial General: Other (Sleeping but arousable) HEENT: Atraumatic Neck: Supple Cardiovascular: Regular rate Lungs: Other (Rude respiration) Abdomen: Bowel sounds, Soft Extremities: Other (No edema) Neurological: Other (Non ambulatory) Skin: Other (Warm and dry) Psych/Mental Status: Other (Confused, not oriented, non verbal) - Procedures Procedures: Procedures Procedure Code Date BLOOD TRANSFUSION SERVICE 11414 09/28/16 TRANSFUSE NONAUT RED BLOOD CELLS IN PERIPH VEIN, PERC 73349A3 09/28/16 Assessment/Plan - Assessment Assessment: Patient is awake, non verbal, non ambulatory, resting in bed, in no acute distress. Dx: acute anemia, dehydration, clinic PNA, Dementia, HTN, S/P CVA, Possible GI bleeding. Upper endoscopy confirm stomach mass, and this it is the bleeding origin. - Plan Plan: Patient in IV NS, Protonix, on levaquin, already transfused, Evaluated by surgery, possible gastectomy. Nutritional Asmnt/Malnutr-PDOC - Dietary Evaluation Malnutrition Findings (Please click <Entered> for more info): Nutritional Asmnt/Malnutrition Start: 09/29/16 16: 06 Text: Status: Complete Freq: Document 09/29/16 19:24 JDAUT (Rec: 09/29/16 19:32 [facility] [id number]) Nutritional Asmnt/Malnutrition Patient General Information Nutritional Screening High Risk Screening Diagnosis Acute anemia, dehydration, clinical pneumonia Pertinent Medical Hx/Surgical Hx CHF, HTN, dementia, old CVA, muscle atrophy Subjective Information Pt is a 66-year-old male from [facility]) admitted with chief complaint of fever. Pt is nonverbal and a poor historian. Pt was laying flat in bed during time of visit. Pt appears well nourished with no signs of muscle or fat depletion. Current Diet Order/ Nutrition Support NPO Patient / S.O Can't verbalize diet edu Pertinent Medications NaCl 0.9% Pertinent Labs (09/29) Na 126L (improving), Albumin 2.2L Nutritional Hx/Data Height 1.52 m Height (Calculated Centimeters) 152.4 Current Weight (lbs) 62.596 kg Weight (Calculated Kilograms) 62.6 Weight (Calculated Grams) 14845.7 [place] Body Weight 106 % [place] Body Weight 130 Weight Status Overweight GI Symptoms GI Symptoms Constipation Food Allergies No Cultural/Ethnic/Christianity Belief No cultural or mandaeism preferences noted. Per chart, at Board and Care, pt received 8 oz prune juice at dinner, no spicy foods, may soak crackers, bread, and cookie with milk. Clear liquid diet every Monday at 1300. Usual diet at home Medium ground diet, Ensure BID Skin Integrity/Comment: Vinod 12, improved to 15. Skin intact. Estimated Nutritional Goals BEE in Kcals: Using Current wt Calories/Kcals/Kg Based on current wt 62.7 kg for wt maintenance Kcals Calculated 1568 kcals/day Protein: Using Current wt Protein g/kg: Based on current wt 62.7 kg for wt maintenance Protein Calculated 63-75 gm/day (1-1.2 gm/kg) Fluid: ml Per MD/DO due dehydration Nutritional Problem 1. Problem Problem Inadequate energy/protein intake related to Etiology pending diagnostic procedures as evidenced by Signs/Symptoms: current NPO status. Malnutrition Alert Protein-Calorie Malnutrition N/A Is there a minimum of two criteria No selected? Query Text:Check all the applicable criteria. A minimum of two criteria are recommended for diagnosis of either severe or non-severe malnutrition. Malnutrition Related to Morbid Obesity Malnutrition related to morbid obesity No Intervention/Recommendation Comments 1. When medically appropriate, recommend mechanical soft ground diet with Boost BID. FNS to provide prune juice with dinner, to honor prior preferences. Expected Outcomes/Goals Expected Outcomes/Goals Have pt meet at least 75% of estimated nutritional needs. Physician Parameters for PEM Normal Weight % 90% - 110% (Normal) Serum Albumin (g/dl) <2.4 (Severe)
[2016-10-01 21:22] LABS: HEMATOCRIT 30.9 % (39.0-49.0); HEMOGLOBIN 10.3 gm/dL (12.6-17.4)
[2016-10-01] MEDS: Levofloxacin 500mg/100mL 500 MG/100 ML BAG IV SCH (21:53)
[2016-10-02] MEDS: Sodium Chloride 0.9% 1,000 ML IV SCH ×2 (02:58→14:18)
[2016-10-02 08:19] LABS: HEMATOCRIT 32.4 % (39.0-49.0); HEMOGLOBIN 10.5 gm/dL (12.6-17.4); MEAN CELL VOLUME 71.4 fl (80-99); MEAN CORPUSCULAR HEMOGLOBIN 23.1 pg (27.0-31.0); MEAN CORPUSCULAR HGB CONC 32.4 pg (28.0-36.0); MEAN PLATELET VOLUME 7.2 fl; PLATELET COUNT 388 Th/cmm (150-400); RED BLOOD COUNT 4.54 Mil/cmm (3.80-5.80); RED CELL DISTRIBUTION WIDTH 24.1 % (11.5-20.0)
[2016-10-02] MEDS: ESOMEPRAZOLE 40 MG IVP SCH (08:28)
[2016-10-02 09:10] LABS: ALB/GLOB RATIO 0.7 (1.0-1.8); ALKALINE PHOSPHATASE 96 U/L (34-104); ANION GAP 8.1 (7.0-16.0); BILIRUBIN,TOTAL 0.5 mg/dL (0.3-1.0); BUN - UREA NITROGEN 9 mg/dL (7-25); CALCIUM SERUM 8.2 mg/dL (8.6-10.3); CARBON DIOXIDE 20.1 mEq/L (21.0-31.0); CHLORIDE 108 mEq/L (98-107); CREATININE - SERUM 0.5 mg/dL (0.7-1.3); GLUCOSE 91 mg/dL (70-105); POTASSIUM SERUM 3.2 mEq/L (3.5-5.1); SGOT 16 U/L (13-39); SGPT/ALT 13 U/L (7-52); SODIUM SERUM 133 mEq/L (136-145)
[2016-10-02 09:52] LABS: WHITE BLOOD COUNT 12.9 Th/cmm (4.8-10.8)
--- NOTE | 2016-10-02 09:55 | General Progress Note ---
Subjective - Review of Systems Service Date: 10/02/16 Subjective: Non Verbal Objective - Results Result Diagrams: 10/01/16 21:11 10/02/16 07:28 Recent Labs: Laboratory Last Values WBC 10.5 Th/cmm (4.8-10.8) 10/01/16 06:30 RBC 3.44 Mil/cmm (3.80-5.80) L 10/01/16 06:30 Hgb 10.3 gm/dL (12.6-17.4) L D 10/01/16 21:11 Hct 30.9 % (39.0-49.0) L D 10/01/16 21:11 MCV 68.3 fl (80-99) L 10/01/16 06:30 MCH 21.8 pg (27.0-31.0) L 10/01/16 06:30 MCHC Differential 31.8 pg (28.0-36.0) 10/01/16 06:30 RDW 24.6 % (11.5-20.0) H 10/01/16 06:30 Plt Count 399 Th/cmm (150-400) 10/01/16 06:30 MPV 7.3 fl 10/01/16 06:30 Band Neutrophils % 7 % (0-10) 10/01/16 06:30 Neutrophils (Manual) 72 % (40-80) 10/01/16 06:30 Lymphocytes 13 % (20-50) L 10/01/16 06:30 Monocytes 6 % (2-10) 10/01/16 06:30 Eosinophils 1 % (0-5) 10/01/16 06:30 Basophils 1 % (0-3) 10/01/16 06:30 Platelet Estimate ADEQUATE (NORMAL) 10/01/16 06:30 Platelet Morphology NORMAL (NORMAL) 10/01/16 06:30 Polychromasia 2+ 09/28/16 14:41 Poikilocytosis 1+ 10/01/16 06:30 Anisocytosis 2+ 10/01/16 06:30 Microcytosis 3+ 10/01/16 06:30 RBC Morph Micro Appear ABNORMAL (NORMAL) 10/01/16 06:30 PT 12.0 SECONDS (9.5-11.5) H 09/30/16 06:10 INR 1.14 (0.5-1.4) 09/30/16 06:10 PTT (Actin FS) 28.8 SECONDS (26.0-38.0) 09/30/16 06:10 Sodium 133 mEq/L (136-145) L 10/02/16 07:28 Potassium 3.2 mEq/L (3.5-5.1) L 10/02/16 07:28 Chloride 108 mEq/L (98-107) H 10/02/16 07:28 Carbon Dioxide 20.1 mEq/L (21.0-31.0) L 10/02/16 07:28 Anion Gap 8.1 (7.0-16.0) 10/02/16 07:28 BUN 9 mg/dL (7-25) 10/02/16 07:28 Creatinine 0.5 mg/dL (0.7-1.3) L 10/02/16 07:28 Est GFR ( Amer) > 60.0 ml/min (>90) 10/02/16 07:28 Est GFR (Non-Af Amer) > 60.0 ml/min 10/02/16 07:28 BUN/Creatinine Ratio 18.0 10/02/16 07:28 Glucose 91 mg/dL (70-105) 10/02/16 07:28 Whole Bld Lactic Acid 1.25 mmol/L (0.60-1.99) 09/28/16 14:41 Calcium 8.2 mg/dL (8.6-10.3) L 10/02/16 07:28 Iron 8 ug/dL (38-169) L 09/30/16 06:10 TIBC 161 ug/dL (250-450) L 09/30/16 06:10 Iron Saturation 5 % (15-55) L 09/30/16 06:10 Unsaturated IBC 153 ug/dL (111-343) 09/30/16 06:10 Ferritin 49 ng/mL (30-400) 09/30/16 06:10 Total Bilirubin 0.5 mg/dL (0.3-1.0) 10/02/16 07:28 AST 16 U/L (13-39) 10/02/16 07:28 ALT 13 U/L (7-52) 10/02/16 07:28 Alkaline Phosphatase 96 U/L (34-104) 10/02/16 07:28 Lactate Dehydrogenase 132 U/L (140-271) L 09/30/16 06:10 Creatine Kinase 34 U/L (30-223) 09/28/16 14:41 Troponin I < 0.01 ng/mL (0.01-0.05) L 09/28/16 14:41 Total Protein 5.3 gm/dL (6.0-8.3) L 10/02/16 07:28 Albumin 2.1 gm/dL (4.2-5.5) L 10/02/16 07:28 Globulin 3.2 gm/dL 10/02/16 07:28 Albumin/Globulin Ratio 0.7 (1.0-1.8) L 10/02/16 07:28 Vitamin B12 978 pg/mL (211-946) H 09/30/16 06:10 Folic Acid 19.4 ng/mL (>3.0) 09/30/16 06:10 Urine Source [place] 09/29/16 16:30 Urine Color YELLOW 09/29/16 16:30 Urine Clarity SLIGHT CLOUDY (CLEAR) 09/29/16 16:30 Urine pH 6.5 (4.6 - 8.0) 09/29/16 16:30 Ur Specific [place] 1.015 (1.005-1.030) 09/29/16 16:30 Urine Protein TRACE mg/dL (NEGATIVE) 09/29/16 16:30 Urine Glucose (UA) NEGATIVE mg/dL (NEGATIVE) 09/29/16 16:30 Urine Ketones NEGATIVE mg/dL (NEGATIVE) 09/29/16 16:30 Urine Blood LARGE (NEGATIVE) H 09/29/16 16:30 Urine Nitrate NEGATIVE (NEGATIVE) 09/29/16 16:30 Urine Bilirubin NEGATIVE (NEGATIVE) 09/29/16 16:30 Urine Urobilinogen 0.2 E.U./dL (0.2 - 1.0) 09/29/16 16:30 Ur Leukocyte Esterase NEGATIVE (NEGATIVE) 09/29/16 16:30 Urine RBC 25-50 /hpf (0-5) H 09/29/16 16:30 Urine WBC 0-2 /hpf (0-5) 09/29/16 16:30 Ur Epithelial Cells RARE /lpf (FEW) 09/29/16 16:30 Amorphous Sediment FEW URATES (NONE SEEN) 09/28/16 17:00 Urine Bacteria FEW /hpf (NONE SEEN) 09/29/16 16:30 Urine Mucus FEW /lpf (FEW) 09/28/16 17:00 Stool Occult Blood NEGATIVE (NEGATIVE) 09/30/16 17:11 Helicobacter pylori Ab NEGATIVE (NEGATIVE) 09/30/16 14:00 Blood Type B POSITIVE 09/28/16 16:32 Antibody Screen NEGATIVE 09/28/16 16:32 Crossmatch See Detail 09/28/16 16:32 - Physical Exam Vitals and I&O: Vital Signs Temp 97 F 10/02/16 04:17 Pulse 97 10/02/16 04:17 Resp 18 10/02/16 06:00 BP 119/69 10/02/16 04:17 Pulse Ox 98 10/02/16 04:17 Intake & Output 10/01/16 10/02/16 10/02/16 18:59 06:59 18:59 Intake Total 1000 100 Output Total 1100 800 Balance -100 -800 100 Weight (lbs) 62.596 kg 58.695 kg Intake: Intake, IV Amount 1000 100 Levofloxacin 500mg/100mL 100 500 mg In 100 ml @ 100 mls/hr IV Q24HR [facility] Rx#: [id number] Sodium Chloride 0.9% 1, 1000 000 ml @ 90 mls/hr IV . Q11H7M [facility] Rx#:[id number] Output: Urine 1100 800 Other: # Bowel Movements 1 1 Active Medications: Current Medications Acetaminophen (Tylenol) 650 mg PO Q6HR PRN PRN Reason: TEMP 100.0 AND ABOVE Stop: 11/27/16 20:42 Last Admin: 09/29/16 15:58 Dose: 650 mg Sodium Chloride (Nacl 0.9%) 1,000 mls @ 90 mls/hr IV .Q11H7M [facility] Stop: 11/27/16 20:31 Last Admin: 10/02/16 02:58 Dose: 90 mls/hr Levofloxacin (Levaquin Pb) 500 mg in 100 mls @ 100 mls/hr IV Q24HR [facility] Stop: 11/28/16 20:59 Last Infusion: 10/02/16 07:25 Dose: Infused Miscellaneous (Misc Injection) 1 vial IVP QDAC [facility] Stop: 11/30/16 09:59 Last Admin: 10/02/16 08:28 Dose: 1 vial General: Other (Sleeping but arousable) HEENT: Atraumatic Neck: Supple Cardiovascular: Regular rate Lungs: Other (Rude respiration) Abdomen: Bowel sounds, Soft Extremities: Other (No edema) Neurological: Other (Non ambulatory) Skin: Other (Warm and dry) Psych/Mental Status: Other (Confused, not oriented, non verbal) - Procedures Procedures: Procedures Procedure Code Date BLOOD TRANSFUSION SERVICE 10866 09/28/16 TRANSFUSE NONAUT RED BLOOD CELLS IN PERIPH VEIN, PERC 88193I3 09/28/16 Assessment/Plan - Assessment Assessment: Patient is awake, non verbal, non ambulatory, resting in bed, in no acute distress. Dx: acute anemia, dehydration, clinic PNA, Dementia, HTN, S/P CVA, Possible GI bleeding. Upper endoscopy confirm stomach mass, and this it is the bleeding origin. - Plan Plan: Patient in IV NS, Protonix, on levaquin, already transfused, awating patology report. Evaluated by surgery, possible gastectomy. Nutritional Asmnt/Malnutr-PDOC - Dietary Evaluation Malnutrition Findings (Please click <Entered> for more info): Nutritional Asmnt/Malnutrition Start: 09/29/16 16: 06 Text: Status: Complete Freq: Document 09/29/16 19:24 [facility] (Rec: 09/29/16 19:32 [facility] [id number]) Nutritional Asmnt/Malnutrition Patient General Information Nutritional Screening High Risk Screening Diagnosis Acute anemia, dehydration, clinical pneumonia Pertinent Medical Hx/Surgical Hx CHF, HTN, dementia, old CVA, muscle atrophy Subjective Information Pt is a 66-year-old male from [facility]) admitted with chief complaint of fever. Pt is nonverbal and a poor historian. Pt was laying flat in bed during time of visit. Pt appears well nourished with no signs of muscle or fat depletion. Current Diet Order/ Nutrition Support NPO Patient / S.O Can't verbalize diet edu Pertinent Medications NaCl 0.9% Pertinent Labs (09/29) Na 126L (improving), Albumin 2.2L Nutritional Hx/Data Height 1.52 m Height (Calculated Centimeters) 152.4 Current Weight (lbs) 62.596 kg Weight (Calculated Kilograms) 62.6 Weight (Calculated Grams) 88923.7 [place] Body Weight 106 % [place] Body Weight 130 Weight Status Overweight GI Symptoms GI Symptoms Constipation Food Allergies No Cultural/Ethnic/Yazidism Belief No cultural or jainism preferences noted. Per chart, at Board and Care, pt received 8 oz prune juice at dinner, no spicy foods, may soak crackers, bread, and cookie with milk. Clear liquid diet every Monday at 1300. Usual diet at home Medium ground diet, Ensure BID Skin Integrity/Comment: Vinod 12, improved to 15. Skin intact. Estimated Nutritional Goals BEE in Kcals: Using Current wt Calories/Kcals/Kg Based on current wt 62.7 kg for wt maintenance Kcals Calculated 1568 kcals/day Protein: Using Current wt Protein g/kg: Based on current wt 62.7 kg for wt maintenance Protein Calculated 63-75 gm/day (1-1.2 gm/kg) Fluid: ml Per MD/DO due dehydration Nutritional Problem 1. Problem Problem Inadequate energy/protein intake related to Etiology pending diagnostic procedures as evidenced by Signs/Symptoms: current NPO status. Malnutrition Alert Protein-Calorie Malnutrition N/A Is there a minimum of two criteria No selected? Query Text:Check all the applicable criteria. A minimum of two criteria are recommended for diagnosis of either severe or non-severe malnutrition. Malnutrition Related to Morbid Obesity Malnutrition related to morbid obesity No Intervention/Recommendation Comments 1. When medically appropriate, recommend mechanical soft ground diet with Boost BID. FNS to provide prune juice with dinner, to honor prior preferences. Expected Outcomes/Goals Expected Outcomes/Goals Have pt meet at least 75% of estimated nutritional needs. Physician Parameters for PEM Normal Weight % 90% - 110% (Normal) Serum Albumin (g/dl) <2.4 (Severe)
[2016-10-02 10:56] LABS: ANISOCYTOSIS 2+; BAND NEUTROPHILE 9 % (0-10); BASOPHIL 1 % (0-3); EOSINOPHIL 1 % (0-5); MICROCYTOSIS 2+; NEUTROPHILS 64 % (40-80); PLATELET ESTIMATE ADEQUATE (NORMAL); PLATELET MORPHOLOGY NORMAL (NORMAL); TOTAL CELLS COUNTED 100
--- NOTE | 2016-10-02 11:07 | General Progress Note ---
Subjective - Review of Systems Service Date: 10/02/16 Events since last encounter: left message with MIKE, await path report continues to have tarry stools Objective - Results Result Diagrams: 10/02/16 07:28 10/02/16 07:28 Recent Labs: Laboratory Last Values WBC 12.9 Th/cmm (4.8-10.8) H D 10/02/16 07:28 RBC 4.54 Mil/cmm (3.80-5.80) 10/02/16 07:28 Hgb 10.5 gm/dL (12.6-17.4) L 10/02/16 07:28 Hct 32.4 % (39.0-49.0) L 10/02/16 07:28 MCV 71.4 fl (80-99) L 10/02/16 07:28 MCH 23.1 pg (27.0-31.0) L 10/02/16 07:28 MCHC Differential 32.4 pg (28.0-36.0) 10/02/16 07:28 RDW 24.1 % (11.5-20.0) H 10/02/16 07:28 Plt Count 388 Th/cmm (150-400) 10/02/16 07:28 MPV 7.2 fl 10/02/16 07:28 Band Neutrophils % 9 % (0-10) 10/02/16 07:28 Neutrophils (Manual) 64 % (40-80) 10/02/16 07:28 Lymphocytes 15 % (20-50) L 10/02/16 07:28 Monocytes 10 % (2-10) 10/02/16 07:28 Eosinophils 1 % (0-5) 10/02/16 07:28 Basophils 1 % (0-3) 10/02/16 07:28 Platelet Estimate ADEQUATE (NORMAL) 10/02/16 07:28 Platelet Morphology NORMAL (NORMAL) 10/02/16 07:28 Polychromasia 2+ 09/28/16 14:41 Poikilocytosis 1+ 10/01/16 06:30 Anisocytosis 2+ 10/02/16 07:28 Microcytosis 2+ 10/02/16 07:28 RBC Morph Micro Appear ABNORMAL (NORMAL) 10/02/16 07:28 PT 12.0 SECONDS (9.5-11.5) H 09/30/16 06:10 INR 1.14 (0.5-1.4) 09/30/16 06:10 PTT (Actin FS) 28.8 SECONDS (26.0-38.0) 09/30/16 06:10 Sodium 133 mEq/L (136-145) L 10/02/16 07:28 Potassium 3.2 mEq/L (3.5-5.1) L 10/02/16 07:28 Chloride 108 mEq/L (98-107) H 10/02/16 07:28 Carbon Dioxide 20.1 mEq/L (21.0-31.0) L 10/02/16 07:28 Anion Gap 8.1 (7.0-16.0) 10/02/16 07:28 BUN 9 mg/dL (7-25) 10/02/16 07:28 Creatinine 0.5 mg/dL (0.7-1.3) L 10/02/16 07:28 Est GFR ( Amer) > 60.0 ml/min (>90) 10/02/16 07:28 Est GFR (Non-Af Amer) > 60.0 ml/min 10/02/16 07:28 BUN/Creatinine Ratio 18.0 10/02/16 07:28 Glucose 91 mg/dL (70-105) 10/02/16 07:28 Whole Bld Lactic Acid 1.25 mmol/L (0.60-1.99) 09/28/16 14:41 Calcium 8.2 mg/dL (8.6-10.3) L 10/02/16 07:28 Iron 8 ug/dL (38-169) L 09/30/16 06:10 TIBC 161 ug/dL (250-450) L 09/30/16 06:10 Iron Saturation 5 % (15-55) L 09/30/16 06:10 Unsaturated IBC 153 ug/dL (111-343) 09/30/16 06:10 Ferritin 49 ng/mL (30-400) 09/30/16 06:10 Total Bilirubin 0.5 mg/dL (0.3-1.0) 10/02/16 07:28 AST 16 U/L (13-39) 10/02/16 07:28 ALT 13 U/L (7-52) 10/02/16 07:28 Alkaline Phosphatase 96 U/L (34-104) 10/02/16 07:28 Lactate Dehydrogenase 132 U/L (140-271) L 09/30/16 06:10 Creatine Kinase 34 U/L (30-223) 09/28/16 14:41 Troponin I < 0.01 ng/mL (0.01-0.05) L 09/28/16 14:41 Total Protein 5.3 gm/dL (6.0-8.3) L 10/02/16 07:28 Albumin 2.1 gm/dL (4.2-5.5) L 10/02/16 07:28 Globulin 3.2 gm/dL 10/02/16 07:28 Albumin/Globulin Ratio 0.7 (1.0-1.8) L 10/02/16 07:28 Vitamin B12 978 pg/mL (211-946) H 09/30/16 06:10 Folic Acid 19.4 ng/mL (>3.0) 09/30/16 06:10 Urine Source [place] 09/29/16 16:30 Urine Color YELLOW 09/29/16 16:30 Urine Clarity SLIGHT CLOUDY (CLEAR) 09/29/16 16:30 Urine pH 6.5 (4.6 - 8.0) 09/29/16 16:30 Ur Specific [place] 1.015 (1.005-1.030) 09/29/16 16:30 Urine Protein TRACE mg/dL (NEGATIVE) 09/29/16 16:30 Urine Glucose (UA) NEGATIVE mg/dL (NEGATIVE) 09/29/16 16:30 Urine Ketones NEGATIVE mg/dL (NEGATIVE) 09/29/16 16:30 Urine Blood LARGE (NEGATIVE) H 09/29/16 16:30 Urine Nitrate NEGATIVE (NEGATIVE) 09/29/16 16:30 Urine Bilirubin NEGATIVE (NEGATIVE) 09/29/16 16:30 Urine Urobilinogen 0.2 E.U./dL (0.2 - 1.0) 09/29/16 16:30 Ur Leukocyte Esterase NEGATIVE (NEGATIVE) 09/29/16 16:30 Urine RBC 25-50 /hpf (0-5) H 09/29/16 16:30 Urine WBC 0-2 /hpf (0-5) 09/29/16 16:30 Ur Epithelial Cells RARE /lpf (FEW) 09/29/16 16:30 Amorphous Sediment FEW URATES (NONE SEEN) 09/28/16 17:00 Urine Bacteria FEW /hpf (NONE SEEN) 09/29/16 16:30 Urine Mucus FEW /lpf (FEW) 09/28/16 17:00 Stool Occult Blood NEGATIVE (NEGATIVE) 09/30/16 17:11 Helicobacter pylori Ab NEGATIVE (NEGATIVE) 09/30/16 14:00 Blood Type B POSITIVE 09/28/16 16:32 Antibody Screen NEGATIVE 09/28/16 16:32 Crossmatch See Detail 09/28/16 16:32 - Physical Exam Vitals and I&O: Vital Signs Temp 97 F 10/02/16 04:17 Pulse 97 10/02/16 04:17 Resp 18 10/02/16 06:00 BP 119/69 10/02/16 04:17 Pulse Ox 98 10/02/16 04:17 Intake & Output 10/01/16 10/02/16 10/02/16 18:59 06:59 18:59 Intake Total 1000 100 Output Total 1100 800 Balance -100 -800 100 Weight (lbs) 62.596 kg 58.695 kg Intake: Intake, IV Amount 1000 100 Levofloxacin 500mg/100mL 100 500 mg In 100 ml @ 100 mls/hr IV Q24HR [facility] Rx#: [id number] Sodium Chloride 0.9% 1, 1000 000 ml @ 90 mls/hr IV . Q11H7M [facility] Rx#:[id number] Output: Urine 1100 800 Other: # Bowel Movements 1 1 Active Medications: Current Medications Acetaminophen (Tylenol) 650 mg PO Q6HR PRN PRN Reason: TEMP 100.0 AND ABOVE Stop: 11/27/16 20:42 Last Admin: 09/29/16 15:58 Dose: 650 mg Sodium Chloride (Nacl 0.9%) 1,000 mls @ 90 mls/hr IV .Q11H7M [facility]EL Stop: 11/27/16 20:31 Last Admin: 10/02/16 02:58 Dose: 90 mls/hr Levofloxacin (Levaquin Pb) 500 mg in 100 mls @ 100 mls/hr IV Q24HR [facility] Stop: 11/28/16 20:59 Last Infusion: 10/02/16 07:25 Dose: Infused Miscellaneous (Misc Injection) 1 vial IVP QDAC RAHEEL Stop: 11/30/16 09:59 Last Admin: 10/02/16 08:28 Dose: 1 vial General: Other (Sleeping but arousable) HEENT: Atraumatic Neck: Supple Cardiovascular: Regular rate Lungs: Other (Rude respiration) Abdomen: Bowel sounds, Soft Extremities: Other (No edema) Neurological: Other (Non ambulatory) Skin: Other (Warm and dry) Psych/Mental Status: Other (Confused, not oriented, non verbal) - Procedures Procedures: Procedures Procedure Code Date BLOOD TRANSFUSION SERVICE 29640 09/28/16 TRANSFUSE NONAUT RED BLOOD CELLS IN PERIPH VEIN, PERC 11917L5 09/28/16 Nutritional Asmnt/Malnutr-PDOC - Dietary Evaluation Malnutrition Findings (Please click <Entered> for more info): Nutritional Asmnt/Malnutrition Start: 09/29/16 16: 06 Text: Status: Complete Freq: Document 09/29/16 19:24 [facility] (Rec: 09/29/16 19:32 [facility] [id number]) Nutritional Asmnt/Malnutrition Patient General Information Nutritional Screening High Risk Screening Diagnosis Acute anemia, dehydration, clinical pneumonia Pertinent Medical Hx/Surgical Hx CHF, HTN, dementia, old CVA, muscle atrophy Subjective Information Pt is a 66-year-old male from [facility]) admitted with chief complaint of fever. Pt is nonverbal and a poor historian. Pt was laying flat in bed during time of visit. Pt appears well nourished with no signs of muscle or fat depletion. Current Diet Order/ Nutrition Support NPO Patient / S.O Can't verbalize diet edu Pertinent Medications NaCl 0.9% Pertinent Labs (09/29) Na 126L (improving), Albumin 2.2L Nutritional Hx/Data Height 1.52 m Height (Calculated Centimeters) 152.4 Current Weight (lbs) 62.596 kg Weight (Calculated Kilograms) 62.6 Weight (Calculated Grams) 86127.7 [place] Body Weight 106 % Ignacio Body Weight 130 Weight Status Overweight GI Symptoms GI Symptoms Constipation Food Allergies No Cultural/Ethnic/Yazdanism Belief No cultural or christianity preferences noted. Per chart, at [facility], pt received 8 oz prune juice at dinner, no spicy foods, may soak crackers, bread, and cookie with milk. Clear liquid diet every Monday at 1300. Usual diet at home Medium ground diet, Ensure BID Skin Integrity/Comment: Vinod Cardenas, improved to 15. Skin intact. Estimated Nutritional Goals BEE in Kcals: Using Current wt Calories/Kcals/Kg Based on current wt 62.7 kg for wt maintenance Kcals Calculated 1568 kcals/day Protein: Using Current wt Protein g/kg: Based on current wt 62.7 kg for wt maintenance Protein Calculated 63-75 gm/day (1-1.2 gm/kg) Fluid: ml Per MD/DO due dehydration Nutritional Problem 1. Problem Problem Inadequate energy/protein intake related to Etiology pending diagnostic procedures as evidenced by Signs/Symptoms: current NPO status. Malnutrition Alert Protein-Calorie Malnutrition N/A Is there a minimum of two criteria No selected? Query Text:Check all the applicable criteria. A minimum of two criteria are recommended for diagnosis of either severe or non-severe malnutrition. Malnutrition Related to Morbid Obesity Malnutrition related to morbid obesity No Intervention/Recommendation Comments 1. When medically appropriate, recommend mechanical soft ground diet with Boost BID. FNS to provide prune juice with dinner, to honor prior preferences. Expected Outcomes/Goals Expected Outcomes/Goals Have pt meet at least 75% of estimated nutritional needs. Physician Parameters for PEM Normal Weight % 90% - 110% (Normal) Serum Albumin (g/dl) <2.4 (Severe)
--- NOTE | 2016-10-02 11:23 | General Progress Note ---
Subjective - Review of Systems Service Date: 10/02/16 Events since last encounter: Alfa Castrejon - brother in [place] at [phone] has POA, discussed EGD findings, bleeding, possibility of CA he agrees to surgery if indicated Objective - Results Result Diagrams: 10/02/16 07:28 10/02/16 07:28 Recent Labs: Laboratory Last Values WBC 12.9 Th/cmm (4.8-10.8) H D 10/02/16 07:28 RBC 4.54 Mil/cmm (3.80-5.80) 10/02/16 07:28 Hgb 10.5 gm/dL (12.6-17.4) L 10/02/16 07:28 Hct 32.4 % (39.0-49.0) L 10/02/16 07:28 MCV 71.4 fl (80-99) L 10/02/16 07:28 MCH 23.1 pg (27.0-31.0) L 10/02/16 07:28 MCHC Differential 32.4 pg (28.0-36.0) 10/02/16 07:28 RDW 24.1 % (11.5-20.0) H 10/02/16 07:28 Plt Count 388 Th/cmm (150-400) 10/02/16 07:28 MPV 7.2 fl 10/02/16 07:28 Band Neutrophils % 9 % (0-10) 10/02/16 07:28 Neutrophils (Manual) 64 % (40-80) 10/02/16 07:28 Lymphocytes 15 % (20-50) L 10/02/16 07:28 Monocytes 10 % (2-10) 10/02/16 07:28 Eosinophils 1 % (0-5) 10/02/16 07:28 Basophils 1 % (0-3) 10/02/16 07:28 Platelet Estimate ADEQUATE (NORMAL) 10/02/16 07:28 Platelet Morphology NORMAL (NORMAL) 10/02/16 07:28 Polychromasia 2+ 09/28/16 14:41 Poikilocytosis 1+ 10/01/16 06:30 Anisocytosis 2+ 10/02/16 07:28 Microcytosis 2+ 10/02/16 07:28 RBC Morph Micro Appear ABNORMAL (NORMAL) 10/02/16 07:28 PT 12.0 SECONDS (9.5-11.5) H 09/30/16 06:10 INR 1.14 (0.5-1.4) 09/30/16 06:10 PTT (Actin FS) 28.8 SECONDS (26.0-38.0) 09/30/16 06:10 Sodium 133 mEq/L (136-145) L 10/02/16 07:28 Potassium 3.2 mEq/L (3.5-5.1) L 10/02/16 07:28 Chloride 108 mEq/L (98-107) H 10/02/16 07:28 Carbon Dioxide 20.1 mEq/L (21.0-31.0) L 10/02/16 07:28 Anion Gap 8.1 (7.0-16.0) 10/02/16 07:28 BUN 9 mg/dL (7-25) 10/02/16 07:28 Creatinine 0.5 mg/dL (0.7-1.3) L 10/02/16 07:28 Est GFR ( Amer) > 60.0 ml/min (>90) 10/02/16 07:28 Est GFR (Non-Af Amer) > 60.0 ml/min 10/02/16 07:28 BUN/Creatinine Ratio 18.0 10/02/16 07:28 Glucose 91 mg/dL (70-105) 10/02/16 07:28 Whole Bld Lactic Acid 1.25 mmol/L (0.60-1.99) 09/28/16 14:41 Calcium 8.2 mg/dL (8.6-10.3) L 10/02/16 07:28 Iron 8 ug/dL (38-169) L 09/30/16 06:10 TIBC 161 ug/dL (250-450) L 09/30/16 06:10 Iron Saturation 5 % (15-55) L 09/30/16 06:10 Unsaturated IBC 153 ug/dL (111-343) 09/30/16 06:10 Ferritin 49 ng/mL (30-400) 09/30/16 06:10 Total Bilirubin 0.5 mg/dL (0.3-1.0) 10/02/16 07:28 AST 16 U/L (13-39) 10/02/16 07:28 ALT 13 U/L (7-52) 10/02/16 07:28 Alkaline Phosphatase 96 U/L (34-104) 10/02/16 07:28 Lactate Dehydrogenase 132 U/L (140-271) L 09/30/16 06:10 Creatine Kinase 34 U/L (30-223) 09/28/16 14:41 Troponin I < 0.01 ng/mL (0.01-0.05) L 09/28/16 14:41 Total Protein 5.3 gm/dL (6.0-8.3) L 10/02/16 07:28 Albumin 2.1 gm/dL (4.2-5.5) L 10/02/16 07:28 Globulin 3.2 gm/dL 10/02/16 07:28 Albumin/Globulin Ratio 0.7 (1.0-1.8) L 10/02/16 07:28 Vitamin B12 978 pg/mL (211-946) H 09/30/16 06:10 Folic Acid 19.4 ng/mL (>3.0) 09/30/16 06:10 Urine Source [place] 09/29/16 16:30 Urine Color YELLOW 09/29/16 16:30 Urine Clarity SLIGHT CLOUDY (CLEAR) 09/29/16 16:30 Urine pH 6.5 (4.6 - 8.0) 09/29/16 16:30 Ur Specific [place] 1.015 (1.005-1.030) 09/29/16 16:30 Urine Protein TRACE mg/dL (NEGATIVE) 09/29/16 16:30 Urine Glucose (UA) NEGATIVE mg/dL (NEGATIVE) 09/29/16 16:30 Urine Ketones NEGATIVE mg/dL (NEGATIVE) 09/29/16 16:30 Urine Blood LARGE (NEGATIVE) H 09/29/16 16:30 Urine Nitrate NEGATIVE (NEGATIVE) 09/29/16 16:30 Urine Bilirubin NEGATIVE (NEGATIVE) 09/29/16 16:30 Urine Urobilinogen 0.2 E.U./dL (0.2 - 1.0) 09/29/16 16:30 Ur Leukocyte Esterase NEGATIVE (NEGATIVE) 09/29/16 16:30 Urine RBC 25-50 /hpf (0-5) H 09/29/16 16:30 Urine WBC 0-2 /hpf (0-5) 09/29/16 16:30 Ur Epithelial Cells RARE /lpf (FEW) 09/29/16 16:30 Amorphous Sediment FEW URATES (NONE SEEN) 09/28/16 17:00 Urine Bacteria FEW /hpf (NONE SEEN) 09/29/16 16:30 Urine Mucus FEW /lpf (FEW) 09/28/16 17:00 Stool Occult Blood NEGATIVE (NEGATIVE) 09/30/16 17:11 Helicobacter pylori Ab NEGATIVE (NEGATIVE) 09/30/16 14:00 Blood Type B POSITIVE 09/28/16 16:32 Antibody Screen NEGATIVE 09/28/16 16:32 Crossmatch See Detail 09/28/16 16:32 - Physical Exam Vitals and I&O: Vital Signs Temp 98.9 F 10/02/16 08:00 Pulse 94 10/02/16 08:00 Resp 18 10/02/16 10:00 BP 120/79 10/02/16 08:00 Pulse Ox 96 10/02/16 08:00 Intake & Output 10/01/16 10/02/16 10/02/16 18:59 06:59 18:59 Intake Total 1000 300 Output Total 1100 800 Balance -100 -800 300 Weight (lbs) 62.596 kg 58.695 kg 58.695 kg Intake: Intake, IV Amount 1000 100 Levofloxacin 500mg/100mL 100 500 mg In 100 ml @ 100 mls/hr IV Q24HR [facility] Rx#: [id number] Sodium Chloride 0.9% 1, 1000 000 ml @ 90 mls/hr IV . Q11H7M [facility] Rx#:[id number] Oral 200 Output: Urine 1100 800 Other: # Bowel Movements 1 1 Active Medications: Current Medications Acetaminophen (Tylenol) 650 mg PO Q6HR PRN PRN Reason: TEMP 100.0 AND ABOVE Stop: 11/27/16 20:42 Last Admin: 09/29/16 15:58 Dose: 650 mg Sodium Chloride (Nacl 0.9%) 1,000 mls @ 90 mls/hr IV .Q11H7M [facility]HEEL Stop: 11/27/16 20:31 Last Admin: 10/02/16 02:58 Dose: 90 mls/hr Levofloxacin (Levaquin Pb) 500 mg in 100 mls @ 100 mls/hr IV Q24HR [facility] Stop: 11/28/16 20:59 Last Infusion: 10/02/16 07:25 Dose: Infused Miscellaneous (Misc Injection) 1 vial IVP QDAC RAHEEL Stop: 11/30/16 09:59 Last Admin: 10/02/16 08:28 Dose: 1 vial General: Other (Sleeping but arousable) HEENT: Atraumatic Neck: Supple Cardiovascular: Regular rate Lungs: Other (Rude respiration) Abdomen: Bowel sounds, Soft Extremities: Other (No edema) Neurological: Other (Non ambulatory) Skin: Other (Warm and dry) Psych/Mental Status: Other (Confused, not oriented, non verbal) - Procedures Procedures: Procedures Procedure Code Date BLOOD TRANSFUSION SERVICE 51816 09/28/16 TRANSFUSE NONAUT RED BLOOD CELLS IN PERIPH VEIN, PERC 23092S0 09/28/16 Nutritional Asmnt/Malnutr-PDOC - Dietary Evaluation Malnutrition Findings (Please click <Entered> for more info): Nutritional Asmnt/Malnutrition Start: 09/29/16 16: 06 Text: Status: Complete Freq: Document 09/29/16 19:24 [facility] (Rec: 09/29/16 19:32 [facility] [id number]) Nutritional Asmnt/Malnutrition Patient General Information Nutritional Screening High Risk Screening Diagnosis Acute anemia, dehydration, clinical pneumonia Pertinent Medical Hx/Surgical Hx CHF, HTN, dementia, old CVA, muscle atrophy Subjective Information Pt is a 66-year-old male from [facility]) admitted with chief complaint of fever. Pt is nonverbal and a poor historian. Pt was laying flat in bed during time of visit. Pt appears well nourished with no signs of muscle or fat depletion. Current Diet Order/ Nutrition Support NPO Patient / S.O Can't verbalize diet edu Pertinent Medications NaCl 0.9% Pertinent Labs (09/29) Na 126L (improving), Albumin 2.2L Nutritional Hx/Data Height 1.52 m Height (Calculated Centimeters) 152.4 Current Weight (lbs) 62.596 kg Weight (Calculated Kilograms) 62.6 Weight (Calculated Grams) 66093.7 [place] Body Weight 106 % [place] Body Weight 130 Weight Status Overweight GI Symptoms GI Symptoms Constipation Food Allergies No Cultural/Ethnic/Samaritan Belief No cultural or uatsdin preferences noted. Per chart, at [facility], pt received 8 oz prune juice at dinner, no spicy foods, may soak crackers, bread, and cookie with milk. Clear liquid diet every Awais at 1300. Usual diet at home Medium ground diet, Ensure BID Skin Integrity/Comment: Vinod 12, improved to 15. Skin intact. Estimated Nutritional Goals BEE in Kcals: Using Current wt Calories/Kcals/Kg Based on current wt 62.7 kg for wt maintenance Kcals Calculated 1568 kcals/day Protein: Using Current wt Protein g/kg: Based on current wt 62.7 kg for wt maintenance Protein Calculated 63-75 gm/day (1-1.2 gm/kg) Fluid: ml Per MD/DO due dehydration Nutritional Problem 1. Problem Problem Inadequate energy/protein intake related to Etiology pending diagnostic procedures as evidenced by Signs/Symptoms: current NPO status. Malnutrition Alert Protein-Calorie Malnutrition N/A Is there a minimum of two criteria No selected? Query Text:Check all the applicable criteria. A minimum of two criteria are recommended for diagnosis of either severe or non-severe malnutrition. Malnutrition Related to Morbid Obesity Malnutrition related to morbid obesity No Intervention/Recommendation Comments 1. When medically appropriate, recommend mechanical soft ground diet with Boost BID. FNS to provide prune juice with dinner, to honor prior preferences. Expected Outcomes/Goals Expected Outcomes/Goals Have pt meet at least 75% of estimated nutritional needs. Physician Parameters for PEM Normal Weight % 90% - 110% (Normal) Serum Albumin (g/dl) <2.4 (Severe)
[2016-10-02] MEDS: Levofloxacin 500mg/100mL 500 MG/100 ML BAG IV SCH (20:33)
[2016-10-03] MEDS: Sodium Chloride 0.9% 1,000 ML IV SCH ×2 (03:18→17:05)
[2016-10-03] MEDS: ESOMEPRAZOLE 40 MG IVP SCH (06:38)
[2016-10-03 07:10] LABS: % BASOPHILS 0.4 % (0.0-2.0); % EOSINOPHILS 4.1 % (0.0-5.0); % LYMPHOCYTES 12.1 % (20.0-50.0); % MONOCYTES 9.1 % (2.0-10.0); % NEUTROPHILS 74.3 % (40.0-80.0); HEMATOCRIT 32.2 % (39.0-49.0); HEMOGLOBIN 10.5 gm/dL (12.6-17.4); MEAN CELL VOLUME 72.3 fl (80-99); MEAN CORPUSCULAR HEMOGLOBIN 23.6 pg (27.0-31.0); MEAN CORPUSCULAR HGB CONC 32.6 pg (28.0-36.0); MEAN PLATELET VOLUME 6.9 fl; NEUTROPHILE ABSOLUTE 8.7 Th/cmm (1.8-8.0); PLATELET COUNT 393 Th/cmm (150-400); RED BLOOD COUNT 4.46 Mil/cmm (3.80-5.80); RED CELL DISTRIBUTION WIDTH 24.7 % (11.5-20.0); WHITE BLOOD COUNT 11.7 Th/cmm (4.8-10.8)
[2016-10-03 07:38] LABS: INR 1.15 (0.5-1.4); PROTHROMBIN TIME (TEST) 12.1 SECONDS (9.5-11.5)
[2016-10-03] MEDS ORDERED: Potassium Phosphate 20 MMOLE in Sodium Chloride 0.9% 250 ML IV ONE (07:47)
[2016-10-03 07:50] LABS: ALB/GLOB RATIO 0.7 (1.0-1.8); ALKALINE PHOSPHATASE 87 U/L (34-104); ANION GAP 8.6 (7.0-16.0); BILIRUBIN,TOTAL 0.5 mg/dL (0.3-1.0); BUN - UREA NITROGEN 7 mg/dL (7-25); BUN/CREATININE RATIO 17.5; CALCIUM SERUM 7.9 mg/dL (8.6-10.3); CARBON DIOXIDE 22.9 mEq/L (21.0-31.0); CHLORIDE 106 mEq/L (98-107); CREATININE - SERUM 0.4 mg/dL (0.7-1.3); GLUCOSE 92 mg/dL (70-105); POTASSIUM SERUM 3.5 mEq/L (3.5-5.1); SGOT 13 U/L (13-39); SGPT/ALT 12 U/L (7-52); SODIUM SERUM 134 mEq/L (136-145)
--- NOTE | 2016-10-03 08:20 | General Progress Note ---
Subjective - Review of Systems Service Date: 10/03/16 Subjective: Non Verbal Objective - Results Result Diagrams: 10/03/16 06:36 10/03/16 06:36 Recent Labs: Laboratory Last Values WBC 11.7 Th/cmm (4.8-10.8) H 10/03/16 06:36 RBC 4.46 Mil/cmm (3.80-5.80) 10/03/16 06:36 Hgb 10.5 gm/dL (12.6-17.4) L 10/03/16 06:36 Hct 32.2 % (39.0-49.0) L 10/03/16 06:36 MCV 72.3 fl (80-99) L 10/03/16 06:36 MCH 23.6 pg (27.0-31.0) L 10/03/16 06:36 MCHC Differential 32.6 pg (28.0-36.0) 10/03/16 06:36 RDW 24.7 % (11.5-20.0) H 10/03/16 06:36 Plt Count 393 Th/cmm (150-400) 10/03/16 06:36 MPV 6.9 fl 10/03/16 06:36 Neutrophils % 74.3 % (40.0-80.0) 10/03/16 06:36 Band Neutrophils % 9 % (0-10) 10/02/16 07:28 Lymphocytes % 12.1 % (20.0-50.0) L 10/03/16 06:36 Monocytes % 9.1 % (2.0-10.0) 10/03/16 06:36 Eosinophils % 4.1 % (0.0-5.0) 10/03/16 06:36 Basophils % 0.4 % (0.0-2.0) 10/03/16 06:36 Neutrophils (Manual) 64 % (40-80) 10/02/16 07:28 Lymphocytes 15 % (20-50) L 10/02/16 07:28 Monocytes 10 % (2-10) 10/02/16 07:28 Eosinophils 1 % (0-5) 10/02/16 07:28 Basophils 1 % (0-3) 10/02/16 07:28 Platelet Estimate ADEQUATE (NORMAL) 10/02/16 07:28 Platelet Morphology NORMAL (NORMAL) 10/02/16 07:28 Polychromasia 2+ 09/28/16 14:41 Poikilocytosis 1+ 10/01/16 06:30 Anisocytosis 2+ 10/02/16 07:28 Microcytosis 2+ 10/02/16 07:28 RBC Morph Micro Appear ABNORMAL (NORMAL) 10/02/16 07:28 PT 12.1 SECONDS (9.5-11.5) H 10/03/16 06:36 INR 1.15 (0.5-1.4) 10/03/16 06:36 PTT (Actin FS) 27.5 SECONDS (26.0-38.0) 10/03/16 06:36 Sodium 134 mEq/L (136-145) L 10/03/16 06:36 Potassium 3.5 mEq/L (3.5-5.1) 10/03/16 06:36 Chloride 106 mEq/L (98-107) 10/03/16 06:36 Carbon Dioxide 22.9 mEq/L (21.0-31.0) 10/03/16 06:36 Anion Gap 8.6 (7.0-16.0) 10/03/16 06:36 BUN 7 mg/dL (7-25) 10/03/16 06:36 Creatinine 0.4 mg/dL (0.7-1.3) L 10/03/16 06:36 Est GFR ( Amer) > 60.0 ml/min (>90) 10/03/16 06:36 Est GFR (Non-Af Amer) > 60.0 ml/min 10/03/16 06:36 BUN/Creatinine Ratio 17.5 10/03/16 06:36 Glucose 92 mg/dL (70-105) 10/03/16 06:36 Whole Bld Lactic Acid 1.25 mmol/L (0.60-1.99) 09/28/16 14:41 Calcium 7.9 mg/dL (8.6-10.3) L 10/03/16 06:36 Iron 8 ug/dL (38-169) L 09/30/16 06:10 TIBC 161 ug/dL (250-450) L 09/30/16 06:10 Iron Saturation 5 % (15-55) L 09/30/16 06:10 Unsaturated IBC 153 ug/dL (111-343) 09/30/16 06:10 Ferritin 49 ng/mL (30-400) 09/30/16 06:10 Total Bilirubin 0.5 mg/dL (0.3-1.0) 10/03/16 06:36 AST 13 U/L (13-39) 10/03/16 06:36 ALT 12 U/L (7-52) 10/03/16 06:36 Alkaline Phosphatase 87 U/L (34-104) 10/03/16 06:36 Lactate Dehydrogenase 132 U/L (140-271) L 09/30/16 06:10 Creatine Kinase 34 U/L (30-223) 09/28/16 14:41 Troponin I < 0.01 ng/mL (0.01-0.05) L 09/28/16 14:41 Total Protein 4.9 gm/dL (6.0-8.3) L 10/03/16 06:36 Albumin 2.0 gm/dL (4.2-5.5) L 10/03/16 06:36 Globulin 2.9 gm/dL 10/03/16 06:36 Albumin/Globulin Ratio 0.7 (1.0-1.8) L 10/03/16 06:36 Vitamin B12 978 pg/mL (211-946) H 09/30/16 06:10 Folic Acid 19.4 ng/mL (>3.0) 09/30/16 06:10 Urine Source [place] 09/29/16 16:30 Urine Color YELLOW 09/29/16 16:30 Urine Clarity SLIGHT CLOUDY (CLEAR) 09/29/16 16:30 Urine pH 6.5 (4.6 - 8.0) 09/29/16 16:30 Ur Specific [place] 1.015 (1.005-1.030) 09/29/16 16:30 Urine Protein TRACE mg/dL (NEGATIVE) 09/29/16 16:30 Urine Glucose (UA) NEGATIVE mg/dL (NEGATIVE) 09/29/16 16:30 Urine Ketones NEGATIVE mg/dL (NEGATIVE) 09/29/16 16:30 Urine Blood LARGE (NEGATIVE) H 09/29/16 16:30 Urine Nitrate NEGATIVE (NEGATIVE) 09/29/16 16:30 Urine Bilirubin NEGATIVE (NEGATIVE) 09/29/16 16:30 Urine Urobilinogen 0.2 E.U./dL (0.2 - 1.0) 09/29/16 16:30 Ur Leukocyte Esterase NEGATIVE (NEGATIVE) 09/29/16 16:30 Urine RBC 25-50 /hpf (0-5) H 09/29/16 16:30 Urine WBC 0-2 /hpf (0-5) 09/29/16 16:30 Ur Epithelial Cells RARE /lpf (FEW) 09/29/16 16:30 Amorphous Sediment FEW URATES (NONE SEEN) 09/28/16 17:00 Urine Bacteria FEW /hpf (NONE SEEN) 09/29/16 16:30 Urine Mucus FEW /lpf (FEW) 09/28/16 17:00 Stool Occult Blood NEGATIVE (NEGATIVE) 09/30/16 17:11 Helicobacter pylori Ab NEGATIVE (NEGATIVE) 09/30/16 14:00 Blood Type B POSITIVE 09/28/16 16:32 Antibody Screen NEGATIVE 09/28/16 16:32 Crossmatch See Detail 09/28/16 16:32 - Physical Exam Vitals and I&O: Vital Signs Temp 98.8 F 10/03/16 04:00 Pulse 82 10/03/16 04:00 Resp 18 10/03/16 05:00 BP 98/54 10/03/16 04:00 Pulse Ox 96 10/03/16 04:00 Intake & Output 10/02/16 10/03/16 10/03/16 18:59 06:59 18:59 Intake Total 1800 1100 Output Total 800 Balance 1000 1100 Weight (lbs) 58.695 kg Intake: Intake, IV Amount 1100 1100 Levofloxacin 500mg/100mL 100 100 500 mg In 100 ml @ 100 mls/hr IV Q24HR [facility] Rx#: [id number] Sodium Chloride 0.9% 1, 1000 1000 000 ml @ 90 mls/hr IV . Q11H7M [facility] Rx#:[id number] Oral 700 Output: Urine 800 Other: # Bowel Movements 0 Active Medications: Current Medications Acetaminophen (Tylenol) 650 mg PO Q6HR PRN PRN Reason: TEMP 100.0 AND ABOVE Stop: 11/27/16 20:42 Last Admin: 09/29/16 15:58 Dose: 650 mg Sodium Chloride (Nacl 0.9%) 1,000 mls @ 90 mls/hr IV .Q11H7M [facility] Stop: 11/27/16 20:31 Last Admin: 10/03/16 03:18 Dose: 90 mls/hr Levofloxacin (Levaquin Pb) 500 mg in 100 mls @ 100 mls/hr IV Q24HR [facility] Stop: 11/28/16 20:59 Last Infusion: 10/02/16 21:33 Dose: Infused Potassium Phosphate 20 mmole/ (Sodium Chloride) 256.6667 mls @ 42.5 mls/hr IV X1 ONE Stop: 10/03/16 13:49 Miscellaneous (Misc Injection) 1 vial IVP QDAC [facility] Stop: 11/30/16 09:59 Last Admin: 10/03/16 06:38 Dose: 1 vial General: Other (Sleeping but arousable) HEENT: Atraumatic Neck: Supple Cardiovascular: Regular rate Lungs: Other (Rude respiration) Abdomen: Bowel sounds, Soft Extremities: Other (No edema) Neurological: Other (Non ambulatory) Skin: Other (Warm and dry) Psych/Mental Status: Other (Confused, not oriented, non verbal) - Procedures Procedures: Procedures Procedure Code Date BLOOD TRANSFUSION SERVICE 88142 09/28/16 TRANSFUSE NONAUT RED BLOOD CELLS IN PERIPH VEIN, PERC 31039I3 09/28/16 Assessment/Plan - Assessment Assessment: Patient is awake, non verbal, non ambulatory, resting in bed, in no acute distress. Dx: acute anemia, dehydration, clinic PNA, Dementia, HTN, S/P CVA, Possible GI bleeding. Upper endoscopy confirm stomach mass, and this it is the bleeding origin. - Plan Plan: Patient in IV NS, Protonix, on levaquin, already transfused, awating patology report. Evaluated by surgery, possible gastectomy. Nutritional Asmnt/Malnutr-PDOC - Dietary Evaluation Malnutrition Findings (Please click <Entered> for more info): Nutritional Asmnt/Malnutrition Start: 09/29/16 16: 06 Text: Status: Complete Freq: Document 09/29/16 19:24 [facility] (Rec: 09/29/16 19:32 [facility] [id number]) Nutritional Asmnt/Malnutrition Patient General Information Nutritional Screening High Risk Screening Diagnosis Acute anemia, dehydration, clinical pneumonia Pertinent Medical Hx/Surgical Hx CHF, HTN, dementia, old CVA, muscle atrophy Subjective Information Pt is a 66-year-old male from [facility]) admitted with chief complaint of fever. Pt is nonverbal and a poor historian. Pt was laying flat in bed during time of visit. Pt appears well nourished with no signs of muscle or fat depletion. Current Diet Order/ Nutrition Support NPO Patient / S.O Can't verbalize diet edu Pertinent Medications NaCl 0.9% Pertinent Labs (09/29) Na 126L (improving), Albumin 2.2L Nutritional Hx/Data Height 1.52 m Height (Calculated Centimeters) 152.4 Current Weight (lbs) 62.596 kg Weight (Calculated Kilograms) 62.6 Weight (Calculated Grams) 13303.7 [place] Body Weight 106 % [place] Body Weight 130 Weight Status Overweight GI Symptoms GI Symptoms Constipation Food Allergies No Cultural/Ethnic/Baptist Belief No cultural or sabianist preferences noted. Per chart, at [facility], pt received 8 oz prune juice at dinner, no spicy foods, may soak crackers, bread, and cookie with milk. Clear liquid diet every Monday at 1300. Usual diet at home Medium ground diet, Ensure BID Skin Integrity/Comment: Vinod 12, improved to 15. Skin intact. Estimated Nutritional Goals BEE in Kcals: Using Current wt Calories/Kcals/Kg Based on current wt 62.7 kg for wt maintenance Kcals Calculated 1568 kcals/day Protein: Using Current wt Protein g/kg: Based on current wt 62.7 kg for wt maintenance Protein Calculated 63-75 gm/day (1-1.2 gm/kg) Fluid: ml Per MD/DO due dehydration Nutritional Problem 1. Problem Problem Inadequate energy/protein intake related to Etiology pending diagnostic procedures as evidenced by Signs/Symptoms: current NPO status. Malnutrition Alert Protein-Calorie Malnutrition N/A Is there a minimum of two criteria No selected? Query Text:Check all the applicable criteria. A minimum of two criteria are recommended for diagnosis of either severe or non-severe malnutrition. Malnutrition Related to Morbid Obesity Malnutrition related to morbid obesity No Intervention/Recommendation Comments 1. When medically appropriate, recommend mechanical soft ground diet with Boost BID. FNS to provide prune juice with dinner, to honor prior preferences. Expected Outcomes/Goals Expected Outcomes/Goals Have pt meet at least 75% of estimated nutritional needs. Physician Parameters for PEM Normal Weight % 90% - 110% (Normal) Serum Albumin (g/dl) <2.4 (Severe)
--- NOTE | 2016-10-03 08:52 | General Progress Note ---
Subjective - Review of Systems Service Date: 10/03/16 Events since last encounter: await path report, likely late today will schedule for surgery tomorrow Objective - Results Result Diagrams: 10/03/16 06:36 10/03/16 06:36 Recent Labs: Laboratory Last Values WBC 11.7 Th/cmm (4.8-10.8) H 10/03/16 06:36 RBC 4.46 Mil/cmm (3.80-5.80) 10/03/16 06:36 Hgb 10.5 gm/dL (12.6-17.4) L 10/03/16 06:36 Hct 32.2 % (39.0-49.0) L 10/03/16 06:36 MCV 72.3 fl (80-99) L 10/03/16 06:36 MCH 23.6 pg (27.0-31.0) L 10/03/16 06:36 MCHC Differential 32.6 pg (28.0-36.0) 10/03/16 06:36 RDW 24.7 % (11.5-20.0) H 10/03/16 06:36 Plt Count 393 Th/cmm (150-400) 10/03/16 06:36 MPV 6.9 fl 10/03/16 06:36 Neutrophils % 74.3 % (40.0-80.0) 10/03/16 06:36 Band Neutrophils % 9 % (0-10) 10/02/16 07:28 Lymphocytes % 12.1 % (20.0-50.0) L 10/03/16 06:36 Monocytes % 9.1 % (2.0-10.0) 10/03/16 06:36 Eosinophils % 4.1 % (0.0-5.0) 10/03/16 06:36 Basophils % 0.4 % (0.0-2.0) 10/03/16 06:36 Neutrophils (Manual) 64 % (40-80) 10/02/16 07:28 Lymphocytes 15 % (20-50) L 10/02/16 07:28 Monocytes 10 % (2-10) 10/02/16 07:28 Eosinophils 1 % (0-5) 10/02/16 07:28 Basophils 1 % (0-3) 10/02/16 07:28 Platelet Estimate ADEQUATE (NORMAL) 10/02/16 07:28 Platelet Morphology NORMAL (NORMAL) 10/02/16 07:28 Polychromasia 2+ 09/28/16 14:41 Poikilocytosis 1+ 10/01/16 06:30 Anisocytosis 2+ 10/02/16 07:28 Microcytosis 2+ 10/02/16 07:28 RBC Morph Micro Appear ABNORMAL (NORMAL) 10/02/16 07:28 PT 12.1 SECONDS (9.5-11.5) H 10/03/16 06:36 INR 1.15 (0.5-1.4) 10/03/16 06:36 PTT (Actin FS) 27.5 SECONDS (26.0-38.0) 10/03/16 06:36 Sodium 134 mEq/L (136-145) L 10/03/16 06:36 Potassium 3.5 mEq/L (3.5-5.1) 10/03/16 06:36 Chloride 106 mEq/L (98-107) 10/03/16 06:36 Carbon Dioxide 22.9 mEq/L (21.0-31.0) 10/03/16 06:36 Anion Gap 8.6 (7.0-16.0) 10/03/16 06:36 BUN 7 mg/dL (7-25) 10/03/16 06:36 Creatinine 0.4 mg/dL (0.7-1.3) L 10/03/16 06:36 Est GFR ( Amer) > 60.0 ml/min (>90) 10/03/16 06:36 Est GFR (Non-Af Amer) > 60.0 ml/min 10/03/16 06:36 BUN/Creatinine Ratio 17.5 10/03/16 06:36 Glucose 92 mg/dL (70-105) 10/03/16 06:36 Whole Bld Lactic Acid 1.25 mmol/L (0.60-1.99) 09/28/16 14:41 Calcium 7.9 mg/dL (8.6-10.3) L 10/03/16 06:36 Iron 8 ug/dL (38-169) L 09/30/16 06:10 TIBC 161 ug/dL (250-450) L 09/30/16 06:10 Iron Saturation 5 % (15-55) L 09/30/16 06:10 Unsaturated IBC 153 ug/dL (111-343) 09/30/16 06:10 Ferritin 49 ng/mL (30-400) 09/30/16 06:10 Total Bilirubin 0.5 mg/dL (0.3-1.0) 10/03/16 06:36 AST 13 U/L (13-39) 10/03/16 06:36 ALT 12 U/L (7-52) 10/03/16 06:36 Alkaline Phosphatase 87 U/L (34-104) 10/03/16 06:36 Lactate Dehydrogenase 132 U/L (140-271) L 09/30/16 06:10 Creatine Kinase 34 U/L (30-223) 09/28/16 14:41 Troponin I < 0.01 ng/mL (0.01-0.05) L 09/28/16 14:41 Total Protein 4.9 gm/dL (6.0-8.3) L 10/03/16 06:36 Albumin 2.0 gm/dL (4.2-5.5) L 10/03/16 06:36 Globulin 2.9 gm/dL 10/03/16 06:36 Albumin/Globulin Ratio 0.7 (1.0-1.8) L 10/03/16 06:36 Vitamin B12 978 pg/mL (211-946) H 09/30/16 06:10 Folic Acid 19.4 ng/mL (>3.0) 09/30/16 06:10 Urine Source [place] 09/29/16 16:30 Urine Color YELLOW 09/29/16 16:30 Urine Clarity SLIGHT CLOUDY (CLEAR) 09/29/16 16:30 Urine pH 6.5 (4.6 - 8.0) 09/29/16 16:30 Ur Specific [place] 1.015 (1.005-1.030) 09/29/16 16:30 Urine Protein TRACE mg/dL (NEGATIVE) 09/29/16 16:30 Urine Glucose (UA) NEGATIVE mg/dL (NEGATIVE) 09/29/16 16:30 Urine Ketones NEGATIVE mg/dL (NEGATIVE) 09/29/16 16:30 Urine Blood LARGE (NEGATIVE) H 09/29/16 16:30 Urine Nitrate NEGATIVE (NEGATIVE) 09/29/16 16:30 Urine Bilirubin NEGATIVE (NEGATIVE) 09/29/16 16:30 Urine Urobilinogen 0.2 E.U./dL (0.2 - 1.0) 09/29/16 16:30 Ur Leukocyte Esterase NEGATIVE (NEGATIVE) 09/29/16 16:30 Urine RBC 25-50 /hpf (0-5) H 09/29/16 16:30 Urine WBC 0-2 /hpf (0-5) 09/29/16 16:30 Ur Epithelial Cells RARE /lpf (FEW) 09/29/16 16:30 Amorphous Sediment FEW URATES (NONE SEEN) 09/28/16 17:00 Urine Bacteria FEW /hpf (NONE SEEN) 09/29/16 16:30 Urine Mucus FEW /lpf (FEW) 09/28/16 17:00 Stool Occult Blood NEGATIVE (NEGATIVE) 09/30/16 17:11 Helicobacter pylori Ab NEGATIVE (NEGATIVE) 09/30/16 14:00 Blood Type B POSITIVE 09/28/16 16:32 Antibody Screen NEGATIVE 09/28/16 16:32 Crossmatch See Detail 09/28/16 16:32 - Physical Exam Vitals and I&O: Vital Signs Temp 97.0 F 10/03/16 08:00 Pulse 58 10/03/16 08:00 Resp 20 10/03/16 08:00 BP 115/72 10/03/16 08:00 Pulse Ox 97 10/03/16 08:00 Intake & Output 10/02/16 10/03/16 10/03/16 18:59 06:59 18:59 Intake Total 1800 1100 Output Total 800 Balance 1000 1100 Weight (lbs) 58.695 kg Intake: Intake, IV Amount 1100 1100 Levofloxacin 500mg/100mL 100 100 500 mg In 100 ml @ 100 mls/hr IV Q24HR [facility] Rx#: [id number] Sodium Chloride 0.9% 1, 1000 1000 000 ml @ 90 mls/hr IV . Q11H7M [facility] Rx#:[id number] Oral 700 Output: Urine 800 Other: # Bowel Movements 0 Active Medications: Current Medications Acetaminophen (Tylenol) 650 mg PO Q6HR PRN PRN Reason: TEMP 100.0 AND ABOVE Stop: 11/27/16 20:42 Last Admin: 09/29/16 15:58 Dose: 650 mg Sodium Chloride (Nacl 0.9%) 1,000 mls @ 90 mls/hr IV .Q11H7M [facility] Stop: 11/27/16 20:31 Last Admin: 10/03/16 03:18 Dose: 90 mls/hr Levofloxacin (Levaquin Pb) 500 mg in 100 mls @ 100 mls/hr IV Q24HR [facility] Stop: 11/28/16 20:59 Last Infusion: 10/02/16 21:33 Dose: Infused Potassium Phosphate 20 mmole/ (Sodium Chloride) 256.6667 mls @ 42.5 mls/hr IV X1 ONE Stop: 10/03/16 13:49 Miscellaneous (Misc Injection) 1 vial IVP QDAC [facility] Stop: 11/30/16 09:59 Last Admin: 10/03/16 06:38 Dose: 1 vial General: Other (Sleeping but arousable) HEENT: Atraumatic Neck: Supple Cardiovascular: Regular rate Lungs: Other (Rude respiration) Abdomen: Bowel sounds, Soft Extremities: Other (No edema) Neurological: Other (Non ambulatory) Skin: Other (Warm and dry) Psych/Mental Status: Other (Confused, not oriented, non verbal) - Procedures Procedures: Procedures Procedure Code Date BLOOD TRANSFUSION SERVICE 82970 09/28/16 TRANSFUSE NONAUT RED BLOOD CELLS IN PERIPH VEIN, PERC 01657X6 09/28/16 Nutritional Asmnt/Malnutr-PDOC - Dietary Evaluation Malnutrition Findings (Please click <Entered> for more info): Nutritional Asmnt/Malnutrition Start: 09/29/16 16: 06 Text: Status: Complete Freq: Document 09/29/16 19:24 [facility] (Rec: 09/29/16 19:32 [facility] [id number]) Nutritional Asmnt/Malnutrition Patient General Information Nutritional Screening High Risk Screening Diagnosis Acute anemia, dehydration, clinical pneumonia Pertinent Medical Hx/Surgical Hx CHF, HTN, dementia, old CVA, muscle atrophy Subjective Information Pt is a 66-year-old male from [facility]) admitted with chief complaint of fever. Pt is nonverbal and a poor historian. Pt was laying flat in bed during time of visit. Pt appears well nourished with no signs of muscle or fat depletion. Current Diet Order/ Nutrition Support NPO Patient / S.O Can't verbalize diet edu Pertinent Medications NaCl 0.9% Pertinent Labs (8/10) Na 126L (improving), Albumin 2.2L Nutritional Hx/Data Height 1.52 m Height (Calculated Centimeters) 152.4 Current Weight (lbs) 62.596 kg Weight (Calculated Kilograms) 62.6 Weight (Calculated Grams) 45989.7 [place] Body Weight 106 % [place] Body Weight 130 Weight Status Overweight GI Symptoms GI Symptoms Constipation Food Allergies No Cultural/Ethnic/Christianity Belief No cultural or anabaptist preferences noted. Per chart, [facility], pt received 8 oz prune juice at dinner, no spicy foods, may soak crackers, bread, and cookie with milk. Clear liquid diet every Monday at 1300. Usual diet at home Medium ground diet, Ensure BID Skin Integrity/Comment: Vinod 12, improved to 15. Skin intact. Estimated Nutritional Goals BEE in Kcals: Using Current wt Calories/Kcals/Kg Based on current wt 62.7 kg for wt maintenance Kcals Calculated 1568 kcals/day Protein: Using Current wt Protein g/kg: Based on current wt 62.7 kg for wt maintenance Protein Calculated 63-75 gm/day (1-1.2 gm/kg) Fluid: ml Per MD/DO due dehydration Nutritional Problem 1. Problem Problem Inadequate energy/protein intake related to Etiology pending diagnostic procedures as evidenced by Signs/Symptoms: current NPO status. Malnutrition Alert Protein-Calorie Malnutrition N/A Is there a minimum of two criteria No selected? Query Text:Check all the applicable criteria. A minimum of two criteria are recommended for diagnosis of either severe or non-severe malnutrition. Malnutrition Related to Morbid Obesity Malnutrition related to morbid obesity No Intervention/Recommendation Comments 1. When medically appropriate, recommend mechanical soft ground diet with Boost BID. FNS to provide prune juice with dinner, to honor prior preferences. Expected Outcomes/Goals Expected Outcomes/Goals Have pt meet at least 75% of estimated nutritional needs. Physician Parameters for PEM Normal Weight % 90% - 110% (Normal) Serum Albumin (g/dl) <2.4 (Severe)
--- NOTE | 2016-10-03 09:52 | Consultation ---
DATE OF CONSULTATION: 10/01/2016 REFERRING PHYSICIAN: Dr. Rosales. REASON FOR CONSULTATION: GI bleed and gastric mass. Thank you for referring this patient to me. HISTORY OF PRESENT ILLNESS: This is a 66-year-old male who came in through Emergency Room because of fever and was found to have hemoglobin of 6.5 grams. He was given transfusion. EGD was performed and there was a large gastric mass about 10 cm with ulceration very suspicious for malignancy. LABORATORY STUDIES: On this date, the hemoglobin is 7.5 grams. The platelet count is normal. Chemistry is essentially normal except for a low albumin at 2.0. PAST MEDICAL HISTORY: Shows that the patient has had CVA, dementia, hypertension. PHYSICAL EXAMINATION: General: The patient is nonverbal. Abdomen: However, is unremarkable. RECOMMENDATIONS: Depending on the results of the biopsy, radical resection of the stomach and bypass will need to be done. Otherwise, if it for bleeding, simple removal of the mass may be as necessary. The brother was called via telephone who resides in [place] about the possibility of surgery. He is the legal guardian of this patient who is his twin brother. He has given consent for surgery pending findings. We will schedule the patient for the operation. JOB# [id number]
--- NOTE | 2016-10-03 18:24 | Pathology Report ---
[id number] Collection Date: 09/30/2016 Surgeon: Dr. Janay Crowley Specimen Description: Gastric mass biopsy Gross Description: Received in formalin are multiple vázquez soft tissue fragments ranging from 0.1 to 0.3 cm in greatest dimension. Totally submitted in one cassette. Microscopic Description: The histologic sections show ulcerated gastric mucosa with extensive necrosis and focal proliferation of atypical glandular structures. There is moderate to severe nuclear enlargement and pleomorphism with irregular merged and cribriform structures consistent with adenocarcinoma. Diagnosis: Infiltrating adenocarcinoma (gastric mass biopsy). Comment: Dr. Jessica Houston is notified of these findings on 10/03/2016. JOB# [id number]
[2016-10-03] MEDS: Levofloxacin 500mg/100mL 500 MG/100 ML BAG IV SCH (20:38)
[2016-10-04] MEDS: Sodium Chloride 0.9% 1,000 ML IV SCH ×2 (04:47→18:30)
[2016-10-04] MEDS: ESOMEPRAZOLE 40 MG IVP SCH (06:52)
--- NOTE | 2016-10-04 08:21 | General Progress Note ---
Subjective - Review of Systems Service Date: 10/04/16 Subjective: Non Verbal Objective - Results Result Diagrams: 10/03/16 06:36 10/03/16 06:36 Recent Labs: Laboratory Last Values WBC 11.7 Th/cmm (4.8-10.8) H 10/03/16 06:36 RBC 4.46 Mil/cmm (3.80-5.80) 10/03/16 06:36 Hgb 10.5 gm/dL (12.6-17.4) L 10/03/16 06:36 Hct 32.2 % (39.0-49.0) L 10/03/16 06:36 MCV 72.3 fl (80-99) L 10/03/16 06:36 MCH 23.6 pg (27.0-31.0) L 10/03/16 06:36 MCHC Differential 32.6 pg (28.0-36.0) 10/03/16 06:36 RDW 24.7 % (11.5-20.0) H 10/03/16 06:36 Plt Count 393 Th/cmm (150-400) 10/03/16 06:36 MPV 6.9 fl 10/03/16 06:36 Neutrophils % 74.3 % (40.0-80.0) 10/03/16 06:36 Band Neutrophils % 9 % (0-10) 10/02/16 07:28 Lymphocytes % 12.1 % (20.0-50.0) L 10/03/16 06:36 Monocytes % 9.1 % (2.0-10.0) 10/03/16 06:36 Eosinophils % 4.1 % (0.0-5.0) 10/03/16 06:36 Basophils % 0.4 % (0.0-2.0) 10/03/16 06:36 Neutrophils (Manual) 64 % (40-80) 10/02/16 07:28 Lymphocytes 15 % (20-50) L 10/02/16 07:28 Monocytes 10 % (2-10) 10/02/16 07:28 Eosinophils 1 % (0-5) 10/02/16 07:28 Basophils 1 % (0-3) 10/02/16 07:28 Platelet Estimate ADEQUATE (NORMAL) 10/02/16 07:28 Platelet Morphology NORMAL (NORMAL) 10/02/16 07:28 Polychromasia 2+ 09/28/16 14:41 Poikilocytosis 1+ 10/01/16 06:30 Anisocytosis 2+ 10/02/16 07:28 Microcytosis 2+ 10/02/16 07:28 RBC Morph Micro Appear ABNORMAL (NORMAL) 10/02/16 07:28 PT 12.1 SECONDS (9.5-11.5) H 10/03/16 06:36 INR 1.15 (0.5-1.4) 10/03/16 06:36 PTT (Actin FS) 27.5 SECONDS (26.0-38.0) 10/03/16 06:36 Sodium 134 mEq/L (136-145) L 10/03/16 06:36 Potassium 3.5 mEq/L (3.5-5.1) 10/03/16 06:36 Chloride 106 mEq/L (98-107) 10/03/16 06:36 Carbon Dioxide 22.9 mEq/L (21.0-31.0) 10/03/16 06:36 Anion Gap 8.6 (7.0-16.0) 10/03/16 06:36 BUN 7 mg/dL (7-25) 10/03/16 06:36 Creatinine 0.4 mg/dL (0.7-1.3) L 10/03/16 06:36 Est GFR ( Amer) > 60.0 ml/min (>90) 10/03/16 06:36 Est GFR (Non-Af Amer) > 60.0 ml/min 10/03/16 06:36 BUN/Creatinine Ratio 17.5 10/03/16 06:36 Glucose 92 mg/dL (70-105) 10/03/16 06:36 Whole Bld Lactic Acid 1.25 mmol/L (0.60-1.99) 09/28/16 14:41 Calcium 7.9 mg/dL (8.6-10.3) L 10/03/16 06:36 Iron 8 ug/dL (38-169) L 09/30/16 06:10 TIBC 161 ug/dL (250-450) L 09/30/16 06:10 Iron Saturation 5 % (15-55) L 09/30/16 06:10 Unsaturated IBC 153 ug/dL (111-343) 09/30/16 06:10 Ferritin 49 ng/mL (30-400) 09/30/16 06:10 Total Bilirubin 0.5 mg/dL (0.3-1.0) 10/03/16 06:36 AST 13 U/L (13-39) 10/03/16 06:36 ALT 12 U/L (7-52) 10/03/16 06:36 Alkaline Phosphatase 87 U/L (34-104) 10/03/16 06:36 Lactate Dehydrogenase 132 U/L (140-271) L 09/30/16 06:10 Creatine Kinase 34 U/L (30-223) 09/28/16 14:41 Troponin I < 0.01 ng/mL (0.01-0.05) L 09/28/16 14:41 Total Protein 4.9 gm/dL (6.0-8.3) L 10/03/16 06:36 Albumin 2.0 gm/dL (4.2-5.5) L 10/03/16 06:36 Globulin 2.9 gm/dL 10/03/16 06:36 Albumin/Globulin Ratio 0.7 (1.0-1.8) L 10/03/16 06:36 Vitamin B12 978 pg/mL (211-946) H 09/30/16 06:10 Folic Acid 19.4 ng/mL (>3.0) 09/30/16 06:10 Urine Source [place] 09/29/16 16:30 Urine Color YELLOW 09/29/16 16:30 Urine Clarity SLIGHT CLOUDY (CLEAR) 09/29/16 16:30 Urine pH 6.5 (4.6 - 8.0) 09/29/16 16:30 Ur Specific [place] 1.015 (1.005-1.030) 09/29/16 16:30 Urine Protein TRACE mg/dL (NEGATIVE) 09/29/16 16:30 Urine Glucose (UA) NEGATIVE mg/dL (NEGATIVE) 09/29/16 16:30 Urine Ketones NEGATIVE mg/dL (NEGATIVE) 09/29/16 16:30 Urine Blood LARGE (NEGATIVE) H 09/29/16 16:30 Urine Nitrate NEGATIVE (NEGATIVE) 09/29/16 16:30 Urine Bilirubin NEGATIVE (NEGATIVE) 09/29/16 16:30 Urine Urobilinogen 0.2 E.U./dL (0.2 - 1.0) 09/29/16 16:30 Ur Leukocyte Esterase NEGATIVE (NEGATIVE) 09/29/16 16:30 Urine RBC 25-50 /hpf (0-5) H 09/29/16 16:30 Urine WBC 0-2 /hpf (0-5) 09/29/16 16:30 Ur Epithelial Cells RARE /lpf (FEW) 09/29/16 16:30 Amorphous Sediment FEW URATES (NONE SEEN) 09/28/16 17:00 Urine Bacteria FEW /hpf (NONE SEEN) 09/29/16 16:30 Urine Mucus FEW /lpf (FEW) 09/28/16 17:00 Stool Occult Blood NEGATIVE (NEGATIVE) 09/30/16 17:11 Helicobacter pylori Ab NEGATIVE (NEGATIVE) 09/30/16 14:00 Blood Type B POSITIVE 09/28/16 16:32 Antibody Screen NEGATIVE 09/28/16 16:32 Crossmatch See Detail 09/28/16 16:32 - Physical Exam Vitals and I&O: Vital Signs Temp 97.5 F 10/04/16 04:00 Pulse 99 10/04/16 04:00 Resp 19 10/04/16 04:00 BP 128/98 10/04/16 04:00 Pulse Ox 95 10/04/16 04:00 Intake & Output 10/03/16 10/04/16 10/04/16 18:59 06:59 18:59 Intake Total 1000 1300 Output Total 1850 Balance 1000 -550 Weight (lbs) 59.591 kg Intake: Intake, IV Amount 1000 1100 Levofloxacin 500mg/100mL 100 500 mg In 100 ml @ 100 mls/hr IV Q24HR [facility] Rx#: [id number] Sodium Chloride 0.9% 1, 1000 1000 000 ml @ 90 mls/hr IV . Q11H7M [facility] Rx#:[id number] Oral 200 Output: Urine 1850 Stool 0 Active Medications: Current Medications Acetaminophen (Tylenol) 650 mg PO Q6HR PRN PRN Reason: TEMP 100.0 AND ABOVE Stop: 11/27/16 20:42 Last Admin: 09/29/16 15:58 Dose: 650 mg Sodium Chloride (Nacl 0.9%) 1,000 mls @ 90 mls/hr IV .Q11H7M [facility] Stop: 11/27/16 20:31 Last Admin: 10/04/16 04:47 Dose: 90 mls/hr Levofloxacin (Levaquin Pb) 500 mg in 100 mls @ 100 mls/hr IV Q24HR [facility] Stop: 11/28/16 20:59 Last Infusion: 10/03/16 21:40 Dose: Infused Miscellaneous (Misc Injection) 1 vial IVP QDAC [facility] Stop: 11/30/16 09:59 Last Admin: 10/04/16 06:52 Dose: 1 vial General: Other (Sleeping but arousable) HEENT: Atraumatic Neck: Supple Cardiovascular: Regular rate Lungs: Other (Rude respiration) Abdomen: Bowel sounds, Soft Extremities: Other (No edema) Neurological: Other (Non ambulatory) Skin: Other (Warm and dry) Psych/Mental Status: Other (Confused, not oriented, non verbal) - Procedures Procedures: Procedures Procedure Code Date BLOOD TRANSFUSION SERVICE 92185 09/28/16 EGD BIOPSY SINGLE/MULTIPLE 83061 09/28/16 EXCISION OF STOMACH, ENDO, DIAGN [id number] 09/28/16 TRANSFUSE NONAUT RED BLOOD CELLS IN PERIPH VEIN, PERC 19217Z2 09/28/16 Assessment/Plan - Assessment Assessment: Patient is awake, non verbal, non ambulatory, resting in bed, in no acute distress. Dx: acute anemia, dehydration, clinic PNA, Dementia, HTN, S/P CVA, Possible GI bleeding. Upper endoscopy confirm stomach mass, and this it is the bleeding origin. - Plan Plan: Patient in IV NS, Protonix, on levaquin, already transfused, awating patology report. Evaluated by surgery, possible gastrectomy. Nutritional Asmnt/Malnutr-PDOC - Dietary Evaluation Malnutrition Findings (Please click <Entered> for more info): Nutritional Asmnt/Malnutrition Start: 09/29/16 16: 06 Text: Status: Complete Freq: Document 09/29/16 19:24 [facility] (Rec: 09/29/16 19:32 [facility] [id number]) Nutritional Asmnt/Malnutrition Patient General Information Nutritional Screening High Risk Screening Diagnosis Acute anemia, dehydration, clinical pneumonia Pertinent Medical Hx/Surgical Hx CHF, HTN, dementia, old CVA, muscle atrophy Subjective Information Pt is a 66-year-old male from [facility]) admitted with chief complaint of fever. Pt is nonverbal and a poor historian. Pt was laying flat in bed during time of visit. Pt appears well nourished with no signs of muscle or fat depletion. Current Diet Order/ Nutrition Support NPO Patient / S.O Can't verbalize diet edu Pertinent Medications NaCl 0.9% Pertinent Labs (09/29) Na 126L (improving), Albumin 2.2L Nutritional Hx/Data Height 1.52 m Height (Calculated Centimeters) 152.4 Current Weight (lbs) 62.596 kg Weight (Calculated Kilograms) 62.6 Weight (Calculated Grams) 08177.7 [place] Body Weight 106 % [place] Body Weight 130 Weight Status Overweight GI Symptoms GI Symptoms Constipation Food Allergies No Cultural/Ethnic/Caodaism Belief No cultural or taoism preferences noted. Per chart, at [facility], pt received 8 oz prune juice at dinner, no spicy foods, may soak crackers, bread, and cookie with milk. Clear liquid diet every Monday at 1300. Usual diet at home Medium ground diet, Ensure BID Skin Integrity/Comment: Vinod 12, improved to 15. Skin intact. Estimated Nutritional Goals BEE in Kcals: Using Current wt Calories/Kcals/Kg Based on current wt 62.7 kg for wt maintenance Kcals Calculated 1568 kcals/day Protein: Using Current wt Protein g/kg: Based on current wt 62.7 kg for wt maintenance Protein Calculated 63-75 gm/day (1-1.2 gm/kg) Fluid: ml Per MD/DO due dehydration Nutritional Problem 1. Problem Problem Inadequate energy/protein intake related to Etiology pending diagnostic procedures as evidenced by Signs/Symptoms: current NPO status. Malnutrition Alert Protein-Calorie Malnutrition N/A Is there a minimum of two criteria No selected? Query Text:Check all the applicable criteria. A minimum of two criteria are recommended for diagnosis of either severe or non-severe malnutrition. Malnutrition Related to Morbid Obesity Malnutrition related to morbid obesity No Intervention/Recommendation Comments 1. When medically appropriate, recommend mechanical soft ground diet with Boost BID. FNS to provide prune juice with dinner, to honor prior preferences. Expected Outcomes/Goals Expected Outcomes/Goals Have pt meet at least 75% of estimated nutritional needs. Physician Parameters for PEM Normal Weight % 90% - 110% (Normal) Serum Albumin (g/dl) <2.4 (Severe)
--- NOTE | 2016-10-04 16:30 | General Progress Note ---
Subjective - Review of Systems Service Date: 10/04/16 Events since last encounter: scheduled for subtotal gastrectomy in AM pathology: adenocarcinoma Objective - Results Result Diagrams: 10/03/16 06:36 10/03/16 06:36 Recent Labs: Laboratory Last Values WBC 11.7 Th/cmm (4.8-10.8) H 10/03/16 06:36 RBC 4.46 Mil/cmm (3.80-5.80) 10/03/16 06:36 Hgb 10.5 gm/dL (12.6-17.4) L 10/03/16 06:36 Hct 32.2 % (39.0-49.0) L 10/03/16 06:36 MCV 72.3 fl (80-99) L 10/03/16 06:36 MCH 23.6 pg (27.0-31.0) L 10/03/16 06:36 MCHC Differential 32.6 pg (28.0-36.0) 10/03/16 06:36 RDW 24.7 % (11.5-20.0) H 10/03/16 06:36 Plt Count 393 Th/cmm (150-400) 10/03/16 06:36 MPV 6.9 fl 10/03/16 06:36 Neutrophils % 74.3 % (40.0-80.0) 10/03/16 06:36 Band Neutrophils % 9 % (0-10) 10/02/16 07:28 Lymphocytes % 12.1 % (20.0-50.0) L 10/03/16 06:36 Monocytes % 9.1 % (2.0-10.0) 10/03/16 06:36 Eosinophils % 4.1 % (0.0-5.0) 10/03/16 06:36 Basophils % 0.4 % (0.0-2.0) 10/03/16 06:36 Neutrophils (Manual) 64 % (40-80) 10/02/16 07:28 Lymphocytes 15 % (20-50) L 10/02/16 07:28 Monocytes 10 % (2-10) 10/02/16 07:28 Eosinophils 1 % (0-5) 10/02/16 07:28 Basophils 1 % (0-3) 10/02/16 07:28 Platelet Estimate ADEQUATE (NORMAL) 10/02/16 07:28 Platelet Morphology NORMAL (NORMAL) 10/02/16 07:28 Polychromasia 2+ 09/28/16 14:41 Poikilocytosis 1+ 10/01/16 06:30 Anisocytosis 2+ 10/02/16 07:28 Microcytosis 2+ 10/02/16 07:28 RBC Morph Micro Appear ABNORMAL (NORMAL) 10/02/16 07:28 PT 12.1 SECONDS (9.5-11.5) H 10/03/16 06:36 INR 1.15 (0.5-1.4) 10/03/16 06:36 PTT (Actin FS) 27.5 SECONDS (26.0-38.0) 10/03/16 06:36 Sodium 134 mEq/L (136-145) L 10/03/16 06:36 Potassium 3.5 mEq/L (3.5-5.1) 10/03/16 06:36 Chloride 106 mEq/L (98-107) 10/03/16 06:36 Carbon Dioxide 22.9 mEq/L (21.0-31.0) 10/03/16 06:36 Anion Gap 8.6 (7.0-16.0) 10/03/16 06:36 BUN 7 mg/dL (7-25) 10/03/16 06:36 Creatinine 0.4 mg/dL (0.7-1.3) L 10/03/16 06:36 Est GFR ( Amer) > 60.0 ml/min (>90) 10/03/16 06:36 Est GFR (Non-Af Amer) > 60.0 ml/min 10/03/16 06:36 BUN/Creatinine Ratio 17.5 10/03/16 06:36 Glucose 92 mg/dL (70-105) 10/03/16 06:36 Whole Bld Lactic Acid 1.25 mmol/L (0.60-1.99) 09/28/16 14:41 Calcium 7.9 mg/dL (8.6-10.3) L 10/03/16 06:36 Iron 8 ug/dL (38-169) L 09/30/16 06:10 TIBC 161 ug/dL (250-450) L 09/30/16 06:10 Iron Saturation 5 % (15-55) L 09/30/16 06:10 Unsaturated IBC 153 ug/dL (111-343) 09/30/16 06:10 Ferritin 49 ng/mL (30-400) 09/30/16 06:10 Total Bilirubin 0.5 mg/dL (0.3-1.0) 10/03/16 06:36 AST 13 U/L (13-39) 10/03/16 06:36 ALT 12 U/L (7-52) 10/03/16 06:36 Alkaline Phosphatase 87 U/L (34-104) 10/03/16 06:36 Lactate Dehydrogenase 132 U/L (140-271) L 09/30/16 06:10 Creatine Kinase 34 U/L (30-223) 09/28/16 14:41 Troponin I < 0.01 ng/mL (0.01-0.05) L 09/28/16 14:41 Total Protein 4.9 gm/dL (6.0-8.3) L 10/03/16 06:36 Albumin 2.0 gm/dL (4.2-5.5) L 10/03/16 06:36 Globulin 2.9 gm/dL 10/03/16 06:36 Albumin/Globulin Ratio 0.7 (1.0-1.8) L 10/03/16 06:36 Vitamin B12 978 pg/mL (211-946) H 09/30/16 06:10 Folic Acid 19.4 ng/mL (>3.0) 09/30/16 06:10 Urine Source [place] 09/29/16 16:30 Urine Color YELLOW 09/29/16 16:30 Urine Clarity SLIGHT CLOUDY (CLEAR) 09/29/16 16:30 Urine pH 6.5 (4.6 - 8.0) 09/29/16 16:30 Ur Specific [place] 1.015 (1.005-1.030) 09/29/16 16:30 Urine Protein TRACE mg/dL (NEGATIVE) 09/29/16 16:30 Urine Glucose (UA) NEGATIVE mg/dL (NEGATIVE) 09/29/16 16:30 Urine Ketones NEGATIVE mg/dL (NEGATIVE) 09/29/16 16:30 Urine Blood LARGE (NEGATIVE) H 09/29/16 16:30 Urine Nitrate NEGATIVE (NEGATIVE) 09/29/16 16:30 Urine Bilirubin NEGATIVE (NEGATIVE) 09/29/16 16:30 Urine Urobilinogen 0.2 E.U./dL (0.2 - 1.0) 09/29/16 16:30 Ur Leukocyte Esterase NEGATIVE (NEGATIVE) 09/29/16 16:30 Urine RBC 25-50 /hpf (0-5) H 09/29/16 16:30 Urine WBC 0-2 /hpf (0-5) 09/29/16 16:30 Ur Epithelial Cells RARE /lpf (FEW) 09/29/16 16:30 Amorphous Sediment FEW URATES (NONE SEEN) 09/28/16 17:00 Urine Bacteria FEW /hpf (NONE SEEN) 09/29/16 16:30 Urine Mucus FEW /lpf (FEW) 09/28/16 17:00 Stool Occult Blood NEGATIVE (NEGATIVE) 09/30/16 17:11 Helicobacter pylori Ab NEGATIVE (NEGATIVE) 09/30/16 14:00 Blood Type B POSITIVE 09/28/16 16:32 Antibody Screen NEGATIVE 09/28/16 16:32 Crossmatch See Detail 09/28/16 16:32 - Physical Exam Vitals and I&O: Vital Signs Temp 97.6 F 10/04/16 12:00 Pulse 89 10/04/16 12:00 Resp 18 10/04/16 12:00 BP 134/78 10/04/16 12:00 Pulse Ox 96 10/04/16 12:00 Intake & Output 10/03/16 10/04/16 10/04/16 18:59 06:59 18:59 Intake Total 1000 1300 Output Total 1850 Balance 1000 -550 Weight (lbs) 59.591 kg Intake: Intake, IV Amount 1000 1100 Levofloxacin 500mg/100mL 100 500 mg In 100 ml @ 100 mls/hr IV Q24HR [facility] Rx#: [id number] Sodium Chloride 0.9% 1, 1000 1000 000 ml @ 90 mls/hr IV . Q11H7M [facility] Rx#:[id number] Oral 200 Output: Urine 1850 Stool 0 Active Medications: Current Medications Acetaminophen (Tylenol) 650 mg PO Q6HR PRN PRN Reason: TEMP 100.0 AND ABOVE Stop: 11/27/16 20:42 Last Admin: 09/29/16 15:58 Dose: 650 mg Sodium Chloride (Nacl 0.9%) 1,000 mls @ 90 mls/hr IV .Q11H7M [facility] Stop: 11/27/16 20:31 Last Admin: 10/04/16 04:47 Dose: 90 mls/hr Levofloxacin (Levaquin Pb) 500 mg in 100 mls @ 100 mls/hr IV Q24HR [facility] Stop: 11/28/16 20:59 Last Infusion: 10/03/16 21:40 Dose: Infused Miscellaneous (Misc Injection) 1 vial IVP QDAC [facility] Stop: 11/30/16 09:59 Last Admin: 10/04/16 06:52 Dose: 1 vial General: Other (Sleeping but arousable) HEENT: Atraumatic Neck: Supple Cardiovascular: Regular rate Lungs: Other (Rude respiration) Abdomen: Bowel sounds, Soft Extremities: Other (No edema) Neurological: Other (Non ambulatory) Skin: Other (Warm and dry) Psych/Mental Status: Other (Confused, not oriented, non verbal) - Procedures Procedures: Procedures Procedure Code Date BLOOD TRANSFUSION SERVICE 64487 09/28/16 EGD BIOPSY SINGLE/MULTIPLE 79395 09/28/16 EXCISION OF STOMACH, ENDO, DIAGN [id number] 09/28/16 TRANSFUSE NONAUT RED BLOOD CELLS IN PERIPH VEIN, PERC 13305H9 09/28/16 Nutritional Asmnt/Malnutr-PDOC - Dietary Evaluation Malnutrition Findings (Please click <Entered> for more info): Nutritional Asmnt/Malnutrition Start: 09/29/16 16: 06 Text: Status: Complete Freq: Document 09/29/16 19:24 [facility] (Rec: 09/29/16 19:32 [facility] [id number]) Nutritional Asmnt/Malnutrition Patient General Information Nutritional Screening High Risk Screening Diagnosis Acute anemia, dehydration, clinical pneumonia Pertinent Medical Hx/Surgical Hx CHF, HTN, dementia, old CVA, muscle atrophy Subjective Information Pt is a 66-year-old male from [facility]) admitted with chief complaint of fever. Pt is nonverbal and a poor historian. Pt was laying flat in bed during time of visit. Pt appears well nourished with no signs of muscle or fat depletion. Current Diet Order/ Nutrition Support NPO Patient / S.O Can't verbalize diet edu Pertinent Medications NaCl 0.9% Pertinent Labs (09/29) Na 126L (improving), Albumin 2.2L Nutritional Hx/Data Height 1.52 m Height (Calculated Centimeters) 152.4 Current Weight (lbs) 62.596 kg Weight (Calculated Kilograms) 62.6 Weight (Calculated Grams) 50504.7 [place] Body Weight 106 % [place] Body Weight 130 Weight Status Overweight GI Symptoms GI Symptoms Constipation Food Allergies No Cultural/Ethnic/Roman Catholic Belief No cultural or episcopal preferences noted. Per chart, at [facility], pt received 8 oz prune juice at dinner, no spicy foods, may soak crackers, bread, and cookie with milk. Clear liquid diet every Monday at 1300. Usual diet at home Medium ground diet, Ensure BID Skin Integrity/Comment: Vinod 12, improved to 15. Skin intact. Estimated Nutritional Goals BEE in Kcals: Using Current wt Calories/Kcals/Kg Based on current wt 62.7 kg for wt maintenance Kcals Calculated 1568 kcals/day Protein: Using Current wt Protein g/kg: Based on current wt 62.7 kg for wt maintenance Protein Calculated 63-75 gm/day (1-1.2 gm/kg) Fluid: ml Per MD/DO due dehydration Nutritional Problem 1. Problem Problem Inadequate energy/protein intake related to Etiology pending diagnostic procedures as evidenced by Signs/Symptoms: current NPO status. Malnutrition Alert Protein-Calorie Malnutrition N/A Is there a minimum of two criteria No selected? Query Text:Check all the applicable criteria. A minimum of two criteria are recommended for diagnosis of either severe or non-severe malnutrition. Malnutrition Related to Morbid Obesity Malnutrition related to morbid obesity No Intervention/Recommendation Comments 1. When medically appropriate, recommend mechanical soft ground diet with Boost BID. FNS to provide prune juice with dinner, to honor prior preferences. Expected Outcomes/Goals Expected Outcomes/Goals Have pt meet at least 75% of estimated nutritional needs. Physician Parameters for PEM Normal Weight % 90% - 110% (Normal) Serum Albumin (g/dl) <2.4 (Severe)
[2016-10-04] MEDS: Levofloxacin 500mg/100mL 500 MG/100 ML BAG IV SCH (21:25)
[2016-10-05 05:06] LABS: % BASOPHILS 4.7 % (0.0-2.0); % EOSINOPHILS 5.2 % (0.0-5.0); % MONOCYTES 9.8 % (2.0-10.0); % NEUTROPHILS 64.3 % (40.0-80.0); HEMATOCRIT 31.6 % (39.0-49.0); HEMOGLOBIN 10.4 gm/dL (12.6-17.4); MEAN CELL VOLUME 71.2 fl (80-99); MEAN CORPUSCULAR HEMOGLOBIN 23.5 pg (27.0-31.0); MEAN PLATELET VOLUME 7.3 fl; NEUTROPHILE ABSOLUTE 7.5 Th/cmm (1.8-8.0); PLATELET COUNT 366 Th/cmm (150-400); RED BLOOD COUNT 4.43 Mil/cmm (3.80-5.80); RED CELL DISTRIBUTION WIDTH 24.9 % (11.5-20.0); WHITE BLOOD COUNT 11.8 Th/cmm (4.8-10.8)
[2016-10-05 05:34] LABS: ALB/GLOB RATIO 0.6 (1.0-1.8); ALKALINE PHOSPHATASE 83 U/L (34-104); ANION GAP 8.4 (7.0-16.0); BILIRUBIN,TOTAL 0.4 mg/dL (0.3-1.0); BUN - UREA NITROGEN 8 mg/dL (7-25); CALCIUM SERUM 7.9 mg/dL (8.6-10.3); CARBON DIOXIDE 22.2 mEq/L (21.0-31.0); CHLORIDE 106 mEq/L (98-107); CREATININE - SERUM 0.4 mg/dL (0.7-1.3); GLUCOSE 92 mg/dL (70-105); POTASSIUM SERUM 3.6 mEq/L (3.5-5.1); SGOT 13 U/L (13-39); SGPT/ALT 11 U/L (7-52); SODIUM SERUM 133 mEq/L (136-145)
[2016-10-05] MEDS: Sodium Chloride 0.9% 1,000 ML IV SCH ×3 (05:59→21:24)
[2016-10-05 06:36] LABS: INR 1.12 (0.5-1.4); PROTHROMBIN TIME (TEST) 11.8 SECONDS (9.5-11.5)
[2016-10-05] MEDS: ESOMEPRAZOLE 40 MG IVP SCH (06:39)
[2016-10-05] MEDS ORDERED: Midazolam 1mg/ml 2 ml vial IV ONE (07:34)
[2016-10-05] MEDS ORDERED: fentaNYL Citrate 100 mcg/2mL Vial ONE (07:41)
[2016-10-05] MEDS ORDERED: Meperidine 25 mg/mL 1mL Syr ONE (09:07)
[2016-10-05] MEDS ORDERED: Meperidine 25 mg/mL 1mL Syr IVP PRN (09:26)
[2016-10-05] MEDS ORDERED: Lactated Ringer 1,000 ML IV SCH (09:30)
--- NOTE | 2016-10-05 10:41 | Diagnostic Imaging Report ---
Portable chest x-ray HISTORY: Increased shortness of breath, endotracheal tube and nasogastric tube placement Compared with a prior exam of September 29, 2016, there is improved inspiration. An endotracheal tube tip is at the neelam. This should be pulled back approximately 2.0 cm. A nasogastric tube extends into the region of the stomach. IMPRESSION: 1. Endotracheal tube tip at the neelam. This should be pulled back approximately 2.0 cm. 2. Nasogastric tube extending into the region of the stomach 3. Improved inspiration since September 29, 2016. No obvious focal processes.
[2016-10-05 11:34] LABS: ABG SOURCE Arterial; ALLEN TEST YES; BE(B) -4.4 mEq/L (-3.0-3.0); FIO2 50; HCO3 21.4 mEq/L (20.0-26.0); MECH RATE 12; MECH VT 500; pH 7.37 (7.35-7.45)
[2016-10-05] MEDS: HYDROmorphone 1 mg/mL 1mL Syr IVP PRN (11:52)
[2016-10-05 12:13] LABS: MEAN CELL VOLUME 75.1 fl (80-99); MEAN CORPUSCULAR HEMOGLOBIN 23.6 pg (27.0-31.0); MEAN CORPUSCULAR HGB CONC 31.4 pg (28.0-36.0); MEAN PLATELET VOLUME 7.1 fl; RED BLOOD COUNT 6.27 Mil/cmm (3.80-5.80); RED CELL DISTRIBUTION WIDTH 24.9 % (11.5-20.0)
[2016-10-05 12:23] LABS: HEMATOCRIT 47.1 % (39.0-49.0); HEMOGLOBIN 14.8 gm/dL (12.6-17.4); PLATELET COUNT 672 Th/cmm (150-400); WHITE BLOOD COUNT 21.2 Th/cmm (4.8-10.8)
[2016-10-05 12:54] LABS: BAND NEUTROPHILE 7 % (0-10); NEUTROPHILS 83 % (40-80); TOTAL CELLS COUNTED 100
[2016-10-05 12:55] LABS: ANISOCYTOSIS 2+; MICROCYTOSIS 2+; PLATELET ESTIMATE INCREASED PLATELETS (NORMAL); PLATELET MORPHOLOGY NORMAL (NORMAL)
[2016-10-05] MEDS: Albuterol/Ipratropium Neb 3 ML AERS HHN SCH ×2 (13:34→19:34)
--- NOTE | 2016-10-05 16:47 | Operative Report ---
DATE OF SURGERY: 10/05/2016 PREOPERATIVE DIAGNOSES: 1. Adenocarcinoma of the stomach. 2. Status post cerebrovascular accident. 3. Dementia. POSTOPERATIVE DIAGNOSES: 1. 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 2. 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 OPERATION DONE: Exploratory laparotomy with: 1. Partial gastrectomy. 2. Right hemicolectomy. 3. Gastrojejunostomy. 4. Mucus colostomy. 5. Diverting ileostomy. 6. Mobilization of the hepatic flexure. 7. Mobilization of the splenic flexure. ESTIMATED BLOOD LOSS: 100 mL. SURGEON: Melody Houston M.D. INDUSTRIAL EDUCATION INSTRUCTOR: Emeka Walker M.D. ANESTHESIA: General. ANESTHESIOLOGIST: Ashu Medel M.D. INDICATIONS FOR SURGERY: The patient was admitted because of marked anemia of 6.5 grams and was given 4 units of blood transfusion. Because of bleeding, EGD was done and this showed large fungating mass in the greater curvature of the stomach, which proved to be adenocarcinoma. No colonoscopy was done. OPERATIVE FINDINGS: Large mass that had involved both the greater curvature of the stomach and the transverse colon, which was completely adhered to each other. The stomach was transected distally and the duodenum closed. Because of the jw enlargement of the descending colon and the sigmoid, the proximal colon was brought out as a mucus fistula. The distal ileum was brought out as a diverting ileostomy. DESCRIPTION OF PROCEDURE: The patient was given general anesthesia. The abdomen was prepped with ChloraPrep and draped in appropriate manner. A midline incision was made below the xiphoid all the way below the umbilicus. Bleeders were coagulated. A Bookwalter was applied. The mass was found to be massive involving both the transverse colon and the stomach. The descending colon was freed from the ligament of Toldt and this was transected. Dissection was then carried out proximally freeing the spleen from the colon and freeing the splenic flexure. The lesser sac of the stomach was then entered. The stomach was transected ____ the proximal one-third was left behind and this ____ was carried all the way from the greater curvature to the lesser curvature. The colon was then freed from its mesentery and this resulted in freeing the mass completely from the mesenteric vessels. There was no compromising circulation distally. The vessels were suture ligated. Use of Super Jaw for transsection and cautery was made. The cecum, which had shortened markedly, was then freed from its lateral attachments. The distal ileum was transected and the rest of the mesentery of the right colon was transected with Super Jaw. The hepatic flexure was then freed from the liver and from the gallbladder, which appeared contracted. This finally freed all the tumor out and was completely removed. There were some nodes in the mesentery indicating spread to this region. Because of the marked dilatation of the distal colon, it was decided to bring out the transected portion of the descending colon as mucus fistula in the left lower quadrant of the abdomen. The distal ileum was brought out as a diverting ileostomy in the right side. Check for hemostasis was done. Sponge count was correct. Neo-Segundo drain was left in the operative site. The proximal portion of the jejunum was then anastomosed in an end-to-side fashion to the jejunum utilizing GI instrument and the open end was closed with 3-0 silk. There appeared to be no evidence of any leak from the anastomosis. Following satisfactory hemostasis, the abdominal incision was closed with running suture of #1 PDS from above and below and the skin was closed with ameena. The colostomy was matured utilizing everting sutures of 4-0 Vicryl as was the ileotomy. Colostomy bags were placed over this. The patient tolerated the procedure well and will be sent to ICU for recovery. JOB# [id number]
[2016-10-05 17:45] LABS: MEAN PLATELET VOLUME 7.2 fl
[2016-10-05 17:48] LABS: HEMATOCRIT 45.7 % (39.0-49.0); HEMOGLOBIN 14.8 gm/dL (12.6-17.4); MEAN CORPUSCULAR HGB CONC 32.5 pg (28.0-36.0); PLATELET COUNT 604 Th/cmm (150-400); RED BLOOD COUNT 6.18 Mil/cmm (3.80-5.80); RED CELL DISTRIBUTION WIDTH 24.9 % (11.5-20.0)
--- NOTE | 2016-10-05 17:54 | General Progress Note ---
Subjective - Review of Systems Service Date: 10/05/16 Subjective: Non Verbal, patient intubated Objective - Results Result Diagrams: 10/05/16 12:06 10/05/16 04:35 Recent Labs: Laboratory Last Values WBC 21.2 Th/cmm (4.8-10.8) H* D 10/05/16 12:06 RBC 6.27 Mil/cmm (3.80-5.80) H 10/05/16 12:06 Hgb 14.8 gm/dL (12.6-17.4) D 10/05/16 12:06 Hct 47.1 % (39.0-49.0) D 10/05/16 12:06 MCV 75.1 fl (80-99) L 10/05/16 12:06 MCH 23.6 pg (27.0-31.0) L 10/05/16 12:06 MCHC Differential 31.4 pg (28.0-36.0) 10/05/16 12:06 RDW 24.9 % (11.5-20.0) H 10/05/16 12:06 Plt Count 672 Th/cmm (150-400) H D 10/05/16 12:06 MPV 7.1 fl 10/05/16 12:06 Neutrophils % 64.3 % (40.0-80.0) 10/05/16 04:35 Band Neutrophils % 7 % (0-10) 10/05/16 12:06 Lymphocytes % 16.0 % (20.0-50.0) L 10/05/16 04:35 Monocytes % 9.8 % (2.0-10.0) 10/05/16 04:35 Eosinophils % 5.2 % (0.0-5.0) H 10/05/16 04:35 Basophils % 4.7 % (0.0-2.0) H 10/05/16 04:35 Neutrophils (Manual) 83 % (40-80) H 10/05/16 12:06 Lymphocytes 8 % (20-50) L 10/05/16 12:06 Monocytes 2 % (2-10) 10/05/16 12:06 Eosinophils 1 % (0-5) 10/02/16 07:28 Basophils 1 % (0-3) 10/02/16 07:28 Platelet Estimate INCREASED PLATELETS (NORMAL) 10/05/16 12:06 Platelet Morphology NORMAL (NORMAL) 10/05/16 12:06 Polychromasia 2+ 09/28/16 14:41 Poikilocytosis 1+ 10/01/16 06:30 Anisocytosis 2+ 10/05/16 12:06 Microcytosis 2+ 10/05/16 12:06 RBC Morph Micro Appear ABNORMAL (NORMAL) 10/05/16 12:06 PT 11.8 SECONDS (9.5-11.5) H 10/05/16 04:55 INR 1.12 (0.5-1.4) 10/05/16 04:55 PTT (Actin FS) 27.9 SECONDS (26.0-38.0) 10/05/16 04:55 Specimen Source Arterial 10/05/16 11:25 Sample Site Left Radial 10/05/16 11:25 pH 7.37 (7.35-7.45) 10/05/16 11:25 pCO2 35.0 mmHg (35.0-45.0) 10/05/16 11:25 pO2 74.0 mmHg (80.0-100.0) L 10/05/16 11:25 HCO3 21.4 mEq/L (20.0-26.0) 10/05/16 11:25 Base Excess -4.4 mEq/L (-3.0-3.0) L 10/05/16 11:25 O2 Saturation 94.0 % (92.0-100.0) 10/05/16 11:25 Gianfranco Test YES 10/05/16 11:25 Vent Rate 12 10/05/16 11:25 Inspired O2 50 10/05/16 11:25 Tidal Volume 500 10/05/16 11:25 PEEP 5 10/05/16 11:25 Pressure (ins/psv/peep) NA 10/05/16 11:25 Critical Value E.HERBERT 10/05/16 11:25 Sodium 133 mEq/L (136-145) L 10/05/16 04:35 Potassium 3.6 mEq/L (3.5-5.1) 10/05/16 04:35 Chloride 106 mEq/L (98-107) 10/05/16 04:35 Carbon Dioxide 22.2 mEq/L (21.0-31.0) 10/05/16 04:35 Anion Gap 8.4 (7.0-16.0) 10/05/16 04:35 BUN 8 mg/dL (7-25) 10/05/16 04:35 Creatinine 0.4 mg/dL (0.7-1.3) L 10/05/16 04:35 Est GFR ( Amer) > 60.0 ml/min (>90) 10/05/16 04:35 Est GFR (Non-Af Amer) > 60.0 ml/min 10/05/16 04:35 BUN/Creatinine Ratio 20.0 10/05/16 04:35 Glucose 92 mg/dL (70-105) 10/05/16 04:35 POC Glucose 92 MG/DL (70 - 105) 10/05/16 06:02 Whole Bld Lactic Acid 1.25 mmol/L (0.60-1.99) 09/28/16 14:41 Calcium 7.9 mg/dL (8.6-10.3) L 10/05/16 04:35 Iron 8 ug/dL (38-169) L 09/30/16 06:10 TIBC 161 ug/dL (250-450) L 09/30/16 06:10 Iron Saturation 5 % (15-55) L 09/30/16 06:10 Unsaturated IBC 153 ug/dL (111-343) 09/30/16 06:10 Ferritin 49 ng/mL (30-400) 09/30/16 06:10 Total Bilirubin 0.4 mg/dL (0.3-1.0) 10/05/16 04:35 AST 13 U/L (13-39) 10/05/16 04:35 ALT 11 U/L (7-52) 10/05/16 04:35 Alkaline Phosphatase 83 U/L (34-104) 10/05/16 04:35 Lactate Dehydrogenase 132 U/L (140-271) L 09/30/16 06:10 Creatine Kinase 34 U/L (30-223) 09/28/16 14:41 Troponin I < 0.01 ng/mL (0.01-0.05) L 09/28/16 14:41 Total Protein 5.0 gm/dL (6.0-8.3) L 10/05/16 04:35 Albumin 1.9 gm/dL (4.2-5.5) L 10/05/16 04:35 Globulin 3.1 gm/dL 10/05/16 04:35 Albumin/Globulin Ratio 0.6 (1.0-1.8) L 10/05/16 04:35 Vitamin B12 978 pg/mL (211-946) H 09/30/16 06:10 Folic Acid 19.4 ng/mL (>3.0) 09/30/16 06:10 Urine Source [place] 09/29/16 16:30 Urine Color YELLOW 09/29/16 16:30 Urine Clarity SLIGHT CLOUDY (CLEAR) 09/29/16 16:30 Urine pH 6.5 (4.6 - 8.0) 09/29/16 16:30 Ur Specific [place] 1.015 (1.005-1.030) 09/29/16 16:30 Urine Protein TRACE mg/dL (NEGATIVE) 09/29/16 16:30 Urine Glucose (UA) NEGATIVE mg/dL (NEGATIVE) 09/29/16 16:30 Urine Ketones NEGATIVE mg/dL (NEGATIVE) 09/29/16 16:30 Urine Blood LARGE (NEGATIVE) H 09/29/16 16:30 Urine Nitrate NEGATIVE (NEGATIVE) 09/29/16 16:30 Urine Bilirubin NEGATIVE (NEGATIVE) 09/29/16 16:30 Urine Urobilinogen 0.2 E.U./dL (0.2 - 1.0) 09/29/16 16:30 Ur Leukocyte Esterase NEGATIVE (NEGATIVE) 09/29/16 16:30 Urine RBC 25-50 /hpf (0-5) H 09/29/16 16:30 Urine WBC 0-2 /hpf (0-5) 09/29/16 16:30 Ur Epithelial Cells RARE /lpf (FEW) 09/29/16 16:30 Amorphous Sediment FEW URATES (NONE SEEN) 09/28/16 17:00 Urine Bacteria FEW /hpf (NONE SEEN) 09/29/16 16:30 Urine Mucus FEW /lpf (FEW) 09/28/16 17:00 Stool Occult Blood NEGATIVE (NEGATIVE) 09/30/16 17:11 Helicobacter pylori Ab NEGATIVE (NEGATIVE) 09/30/16 14:00 Blood Type B POSITIVE 10/05/16 04:35 Antibody Screen NEGATIVE 10/05/16 04:35 Crossmatch See Detail 09/28/16 16:32 - Physical Exam Vitals and I&O: Vital Signs Temp 96.5 F 10/05/16 17:00 Pulse 107 10/05/16 17:00 Resp 22 10/05/16 17:00 BP 90/62 10/05/16 17:00 Pulse Ox 99 10/05/16 17:00 Intake & Output 10/04/16 10/05/16 10/05/16 18:59 06:59 18:59 Intake Total 2200 1100 486 Output Total 750 900 Balance 1450 200 486 Weight (lbs) 59.591 kg 58.922 kg Intake: Intake, IV Amount 1000 1000 486 Sodium Chloride 0.9% 1, 1000 1000 486 000 ml @ 90 mls/hr IV . Q11H7M [facility] Rx#:[id number] Oral 1200 Other 100 Output: Urine 750 900 Other: # Bowel Movements 0 0 Active Medications: Current Medications Acetaminophen (Tylenol) 650 mg PO Q6HR PRN PRN Reason: TEMP 100.0 AND ABOVE Stop: 11/27/16 20:42 Last Admin: 09/29/16 15:58 Dose: 650 mg Albuterol/Ipratropium (Duoneb Neb) 3 ml HHN Q6HRT [facility] Stop: 12/04/16 12:59 Last Admin: 10/05/16 13:34 Dose: 3 ml Chlorhexidine Gluconate (Peridex) 15 ml MM 0800,2000 [facility] Stop: 12/04/16 19:59 Hydromorphone HCl (Dilaudid) 1 mg IVP Q4HR PRN PRN Reason: Pain (Mild) Stop: 12/04/16 10:25 Last Admin: 10/05/16 11:52 Dose: 1 mg Levofloxacin (Levaquin Pb) 500 mg in 100 mls @ 100 mls/hr IV Q24HR [facility] Stop: 11/28/16 20:59 Last Admin: 10/04/16 21:25 Dose: 100 mls/hr Sodium Chloride (Nacl 0.9%) 1,000 mls @ 120 mls/hr IV .Q8H20M [facility] Stop: 12/04/16 17:08 Miscellaneous (Misc Injection) 1 vial IVP QDAC [facility] Stop: 11/30/16 09:59 Last Admin: 10/05/16 06:39 Dose: 1 vial Ondansetron HCl (Zofran) 4 mg IV UD PRN PRN Reason: Nausea / Vomiting Stop: 12/04/16 09:25 General: Other (Patient intubated) HEENT: Atraumatic Neck: Supple Cardiovascular: Regular rate Lungs: Other (Rude respiration) Abdomen: Bowel sounds, Soft, Other (Cover with chava) Extremities: Other (No edema) Neurological: Other (Non ambulatory) Skin: Other (Warm and dry) Psych/Mental Status: Other (Obtunded, Intubated, ) - Procedures Procedures: Procedures Procedure Code Date BLOOD TRANSFUSION SERVICE 45266 09/28/16 EGD BIOPSY SINGLE/MULTIPLE 23341 09/28/16 EXCISION OF STOMACH, ENDO, DIAGN [id number] 09/28/16 TRANSFUSE NONAUT RED BLOOD CELLS IN PERIPH VEIN, PERC 36378R3 09/28/16 Assessment/Plan - Assessment Assessment: Patient Just came from an extensive surgery (Partial gastrectomy, Hemicolectomy , Gastrojejunostomy, Diverting Ileostomy, and mucus colostomy. Dx: Adenocarcinoma of stomach and transverse colon, [place], acute anemia, dehydration, clinic PNA, Dementia, HTN, S/P CVA, Possible GI bleeding. Upper endoscopy confirm stomach mass, and this it is the bleeding origin. - Plan Plan: Patient in critical condition. intubated, IV NS, Protonix, on levaquin, already transfused. will continue to monitor Nutritional Asmnt/Malnutr-PDOC - Dietary Evaluation Malnutrition Findings (Please click <Entered> for more info): Nutritional Asmnt/Malnutrition Start: 09/29/16 16: 06 Text: Status: Complete Freq: Document 09/29/16 19:24 [facility] (Rec: 09/29/16 19:32 [facility] [id number]) Nutritional Asmnt/Malnutrition Patient General Information Nutritional Screening High Risk Screening Diagnosis Acute anemia, dehydration, clinical pneumonia Pertinent Medical Hx/Surgical Hx CHF, HTN, dementia, old CVA, muscle atrophy Subjective Information Pt is a 66-year-old male from [facility]) admitted with chief complaint of fever. Pt is nonverbal and a poor historian. Pt was laying flat in bed during time of visit. Pt appears well nourished with no signs of muscle or fat depletion. Current Diet Order/ Nutrition Support NPO Patient / S.O Can't verbalize diet edu Pertinent Medications NaCl 0.9% Pertinent Labs (09/29) Na 126L (improving), Albumin 2.2L Nutritional Hx/Data Height 1.52 m Height (Calculated Centimeters) 152.4 Current Weight (lbs) 62.596 kg Weight (Calculated Kilograms) 62.6 Weight (Calculated Grams) 83173.7 [place] Body Weight 106 % [place] Body Weight 130 Weight Status Overweight GI Symptoms GI Symptoms Constipation Food Allergies No Cultural/Ethnic/Hoahaoism Belief No cultural or orthodoxy preferences noted. Per chart, at [facility], pt received 8 oz prune juice at dinner, no spicy foods, may soak crackers, bread, and cookie with milk. Clear liquid diet every Monday at 1300. Usual diet at home Medium ground diet, Ensure BID Skin Integrity/Comment: Vinod Cardenas, improved to 15. Skin intact. Estimated Nutritional Goals BEE in Kcals: Using Current wt Calories/Kcals/Kg Based on current wt 62.7 kg for wt maintenance Kcals Calculated 1568 kcals/day Protein: Using Current wt Protein g/kg: Based on current wt 62.7 kg for wt maintenance Protein Calculated 63-75 gm/day (1-1.2 gm/kg) Fluid: ml Per MD/DO due dehydration Nutritional Problem 1. Problem Problem Inadequate energy/protein intake related to Etiology pending diagnostic procedures as evidenced by Signs/Symptoms: current NPO status. Malnutrition Alert Protein-Calorie Malnutrition N/A Is there a minimum of two criteria No selected? Query Text:Check all the applicable criteria. A minimum of two criteria are recommended for diagnosis of either severe or non-severe malnutrition. Malnutrition Related to Morbid Obesity Malnutrition related to morbid obesity No Intervention/Recommendation Comments 1. When medically appropriate, recommend mechanical soft ground diet with Boost BID. FNS to provide prune juice with dinner, to honor prior preferences. Expected Outcomes/Goals Expected Outcomes/Goals Have pt meet at least 75% of estimated nutritional needs. Physician Parameters for PEM Normal Weight % 90% - 110% (Normal) Serum Albumin (g/dl) <2.4 (Severe)
[2016-10-05 18:02] LABS: WHITE BLOOD COUNT 21.3 Th/cmm (4.8-10.8)
[2016-10-05] MEDS ORDERED: Diatrizoate Meglumine/Diatri 30 mL Sol ONE (19:21)
[2016-10-05] MEDS: Chlorhexidine Gluconate 0.12% 15mL Mouthwash MM SCH (20:00)
[2016-10-05] MEDS: Levofloxacin 500mg/100mL 500 MG/100 ML BAG IV SCH (21:00)
[2016-10-05 21:17] LABS: BAND NEUTROPHILE 3 % (0-10); BASOPHIL 0 % (0-3); EOSINOPHIL 0 % (0-5); NEUTROPHILS 88 % (40-80); PLATELET ESTIMATE INCREASED PLATELETS (NORMAL); PLATELET MORPHOLOGY NORMAL (NORMAL); TOTAL CELLS COUNTED 100
[2016-10-05 21:18] LABS: ANISOCYTOSIS 2+; MICROCYTOSIS 3+
--- NOTE | 2016-10-06 00:20 | Consultation ---
DATE OF CONSULTATION: 10/05/2016 PATIENT OF: Dr. Rosales. Thank you very much, Dr. Rosales for this consultation. HISTORY OF PRESENT ILLNESS: This is a 66-year-old male who underwent gastrectomy surgery for gastric CA, apparently was pretty extensive. The patient was kept on a ventilator postoperatively. We were called for consultation for ventilator management. The patient appears to be comfortable, arousable, less sedated, saturating adequately with adequate blood pressures. PAST MEDICAL HISTORY: History of hypertension, dementia, CVA. SOCIAL HISTORY: shelter resident, not sure about his smoking history at this point after reviewing records. REVIEW OF SYSTEMS: Unable to obtain because of the patient's condition. PHYSICAL EXAMINATION: GENERAL: The patient is arousable on a ventilator, not in distress. VITAL SIGNS: Temperature 98.2, pulse 85, respiration 19, blood pressure 145/96, saturation 97%. HEENT: Atraumatic, normocephalic. Pupils reactive to light and accommodation. Ears, nose and throat normal. NECK: Supple. No JVD. CHEST: There are good breath sounds, few rhonchi in bases. HEART: Regular rate and rhythm. ABDOMEN: Soft, nontender. EXTREMITIES: No edema. LABORATORY DATA: WBC is 11.8, hemoglobin 10.4, hematocrit 31.6, platelets is 366. Sodium 133, potassium 3.6, BUN is 8, creatinine 0.4. Chest x-ray small lung volumes in the left base, ET tube was deep in almost the right mainstem. IMPRESSION: 1. This is a 66-year-old male with respiratory failure on a ventilator postoperatively. 2. Gastric cancer status post subtotal gastrectomy and surgery. PLAN: 1. ET tube was pulled back 2 cm. 2. Ventilator support. 3. Once the patient is stabilized we will start weaning as tolerated and also nebulizer treatment. I will follow the patient with you. Thank you very much for this consultation. JOB# [id number] PORFIRIO
[2016-10-06] MEDS: Albuterol/Ipratropium Neb 3 ML AERS HHN SCH ×5 (01:03→22:18)
[2016-10-06] MEDS: Sodium Chloride 0.9% 1,000 ML IV SCH ×3 (07:02→18:42)
--- NOTE | 2016-10-06 07:46 | General Progress Note ---
Subjective - Review of Systems Service Date: 10/06/16 Events since last encounter: patient pulled out NGT and endotracheal tube last night, NGT replaced by nurse without my knowledge contrast thru NGT today labs noted Objective - Results Result Diagrams: 10/05/16 17:39 10/05/16 04:35 Recent Labs: Laboratory Last Values WBC 21.3 Th/cmm (4.8-10.8) H* 10/05/16 17:39 RBC 6.18 Mil/cmm (3.80-5.80) H 10/05/16 17:39 Hgb 14.8 gm/dL (12.6-17.4) 10/05/16 17:39 Hct 45.7 % (39.0-49.0) 10/05/16 17:39 MCV 74.0 fl (80-99) L 10/05/16 17:39 MCH 24.0 pg (27.0-31.0) L 10/05/16 17:39 MCHC Differential 32.5 pg (28.0-36.0) 10/05/16 17:39 RDW 24.9 % (11.5-20.0) H 10/05/16 17:39 Plt Count 604 Th/cmm (150-400) H 10/05/16 17:39 MPV 7.2 fl 10/05/16 17:39 Neutrophils % 64.3 % (40.0-80.0) 10/05/16 04:35 Band Neutrophils % 3 % (0-10) 10/05/16 17:39 Lymphocytes % 16.0 % (20.0-50.0) L 10/05/16 04:35 Monocytes % 9.8 % (2.0-10.0) 10/05/16 04:35 Eosinophils % 5.2 % (0.0-5.0) H 10/05/16 04:35 Basophils % 4.7 % (0.0-2.0) H 10/05/16 04:35 Neutrophils (Manual) 88 % (40-80) H 10/05/16 17:39 Lymphocytes 7 % (20-50) L 10/05/16 17:39 Monocytes 2 % (2-10) 10/05/16 17:39 Eosinophils 0 % (0-5) 08/16/17 17:39 Basophils 0 % (0-3) 10/05/16 17:39 Platelet Estimate INCREASED PLATELETS (NORMAL) 10/05/16 17:39 Platelet Morphology NORMAL (NORMAL) 10/05/16 17:39 Polychromasia 2+ 09/28/16 14:41 Poikilocytosis 1+ 10/01/16 06:30 Anisocytosis 2+ 10/05/16 17:39 Microcytosis 3+ 10/05/16 17:39 RBC Morph Micro Appear ABNORMAL (NORMAL) 10/05/16 17:39 PT 11.8 SECONDS (9.5-11.5) H 10/05/16 04:55 INR 1.12 (0.5-1.4) 10/05/16 04:55 PTT (Actin FS) 27.9 SECONDS (26.0-38.0) 10/05/16 04:55 Specimen Source Arterial 10/05/16 11:25 Sample Site Left Radial 10/05/16 11:25 pH 7.37 (7.35-7.45) 10/05/16 11:25 pCO2 35.0 mmHg (35.0-45.0) 10/05/16 11:25 pO2 74.0 mmHg (80.0-100.0) L 10/05/16 11:25 HCO3 21.4 mEq/L (20.0-26.0) 10/05/16 11:25 Base Excess -4.4 mEq/L (-3.0-3.0) L 10/05/16 11:25 O2 Saturation 94.0 % (92.0-100.0) 10/05/16 11:25 Gianfranco Test YES 10/05/16 11:25 Vent Rate 12 10/05/16 11:25 Inspired O2 50 10/05/16 11:25 Tidal Volume 500 10/05/16 11:25 PEEP 5 10/05/16 11:25 Pressure (ins/psv/peep) NA 10/05/16 11:25 Critical Value E.HERBERT 10/05/16 11:25 Sodium 133 mEq/L (136-145) L 10/05/16 04:35 Potassium 3.6 mEq/L (3.5-5.1) 10/05/16 04:35 Chloride 106 mEq/L (98-107) 10/05/16 04:35 Carbon Dioxide 22.2 mEq/L (21.0-31.0) 10/05/16 04:35 Anion Gap 8.4 (7.0-16.0) 10/05/16 04:35 BUN 8 mg/dL (7-25) 10/05/16 04:35 Creatinine 0.4 mg/dL (0.7-1.3) L 10/05/16 04:35 Est GFR ( Amer) > 60.0 ml/min (>90) 10/05/16 04:35 Est GFR (Non-Af Amer) > 60.0 ml/min 10/05/16 04:35 BUN/Creatinine Ratio 20.0 10/05/16 04:35 Glucose 92 mg/dL (70-105) 10/05/16 04:35 POC Glucose 92 MG/DL (70 - 105) 10/05/16 06:02 Whole Bld Lactic Acid 1.25 mmol/L (0.60-1.99) 09/28/16 14:41 Calcium 7.9 mg/dL (8.6-10.3) L 10/05/16 04:35 Iron 8 ug/dL (38-169) L 09/30/16 06:10 TIBC 161 ug/dL (250-450) L 09/30/16 06:10 Iron Saturation 5 % (15-55) L 09/30/16 06:10 Unsaturated IBC 153 ug/dL (111-343) 09/30/16 06:10 Ferritin 49 ng/mL (30-400) 09/30/16 06:10 Total Bilirubin 0.4 mg/dL (0.3-1.0) 10/05/16 04:35 AST 13 U/L (13-39) 10/05/16 04:35 ALT 11 U/L (7-52) 10/05/16 04:35 Alkaline Phosphatase 83 U/L (34-104) 10/05/16 04:35 Lactate Dehydrogenase 132 U/L (140-271) L 09/30/16 06:10 Creatine Kinase 34 U/L (30-223) 09/28/16 14:41 Troponin I < 0.01 ng/mL (0.01-0.05) L 09/28/16 14:41 Total Protein 5.0 gm/dL (6.0-8.3) L 10/05/16 04:35 Albumin 1.9 gm/dL (4.2-5.5) L 10/05/16 04:35 Globulin 3.1 gm/dL 10/05/16 04:35 Albumin/Globulin Ratio 0.6 (1.0-1.8) L 10/05/16 04:35 Vitamin B12 978 pg/mL (211-946) H 09/30/16 06:10 Folic Acid 19.4 ng/mL (>3.0) 09/30/16 06:10 Urine Source [place] 09/29/16 16:30 Urine Color YELLOW 09/29/16 16:30 Urine Clarity SLIGHT CLOUDY (CLEAR) 09/29/16 16:30 Urine pH 6.5 (4.6 - 8.0) 09/29/16 16:30 Ur Specific [place] 1.015 (1.005-1.030) 09/29/16 16:30 Urine Protein TRACE mg/dL (NEGATIVE) 09/29/16 16:30 Urine Glucose (UA) NEGATIVE mg/dL (NEGATIVE) 09/29/16 16:30 Urine Ketones NEGATIVE mg/dL (NEGATIVE) 09/29/16 16:30 Urine Blood LARGE (NEGATIVE) H 09/29/16 16:30 Urine Nitrate NEGATIVE (NEGATIVE) 09/29/16 16:30 Urine Bilirubin NEGATIVE (NEGATIVE) 09/29/16 16:30 Urine Urobilinogen 0.2 E.U./dL (0.2 - 1.0) 09/29/16 16:30 Ur Leukocyte Esterase NEGATIVE (NEGATIVE) 09/29/16 16:30 Urine RBC 25-50 /hpf (0-5) H 09/29/16 16:30 Urine WBC 0-2 /hpf (0-5) 09/29/16 16:30 Ur Epithelial Cells RARE /lpf (FEW) 09/29/16 16:30 Amorphous Sediment FEW URATES (NONE SEEN) 09/28/16 17:00 Urine Bacteria FEW /hpf (NONE SEEN) 09/29/16 16:30 Urine Mucus FEW /lpf (FEW) 09/28/16 17:00 Stool Occult Blood NEGATIVE (NEGATIVE) 09/30/16 17:11 Helicobacter pylori Ab NEGATIVE (NEGATIVE) 09/30/16 14:00 Blood Type B POSITIVE 10/05/16 04:35 Antibody Screen NEGATIVE 10/05/16 04:35 Crossmatch See Detail 09/28/16 16:32 - Physical Exam Vitals and I&O: Vital Signs Temp 97.6 F 10/06/16 04:00 Pulse 98 10/06/16 05:00 Resp 26 10/06/16 05:00 BP 116/72 10/06/16 05:00 Pulse Ox 97 10/06/16 05:00 Intake & Output 10/05/16 10/06/16 10/06/16 18:59 06:59 18:59 Intake Total 486 1200 Output Total 360 27 Balance 126 1173 Weight (lbs) 58.922 kg 58.513 kg Intake: Intake, IV Amount 486 1200 Levofloxacin 500mg/100mL 200 500 mg In 100 ml @ 100 mls/hr IV Q24HR [facility] Rx#: [id number] Sodium Chloride 0.9% 1, 1000 000 ml @ 120 mls/hr IV . Q8H20M [facility] Rx#:[id number] Sodium Chloride 0.9% 1, 486 000 ml @ 90 mls/hr IV . Q11H7M [facility] Rx#:[id number] Output: Gastric Drainage 200 Drainage 10 2 Left Lower Abdomen 10 2 Urine 150 25 Other: # Bowel Movements 0 Active Medications: Current Medications Acetaminophen (Tylenol) 650 mg PO Q6HR PRN PRN Reason: TEMP 100.0 AND ABOVE Stop: 11/27/16 20:42 Last Admin: 09/29/16 15:58 Dose: 650 mg Albuterol/Ipratropium (Duoneb Neb) 3 ml HHN Q6HRT [facility] Stop: 12/04/16 12:59 Last Admin: 10/06/16 01:03 Dose: 3 ml Chlorhexidine Gluconate (Peridex) 15 ml MM 0800,1999 [facility] Stop: 12/04/16 19:59 Last Admin: 10/05/16 20:00 Dose: 15 ml Hydromorphone HCl (Dilaudid) 1 mg IVP Q4HR PRN PRN Reason: Pain (Mild) Stop: 12/04/16 10:25 Last Admin: 10/05/16 11:52 Dose: 1 mg Levofloxacin (Levaquin Pb) 500 mg in 100 mls @ 100 mls/hr IV Q24HR [facility] Stop: 11/28/16 20:59 Last Infusion: 10/05/16 22:00 Dose: Infused Sodium Chloride (Nacl 0.9%) 1,000 mls @ 120 mls/hr IV .Q8H20M [facility] Stop: 12/04/16 17:08 Last Admin: 10/06/16 07:02 Dose: 120 mls/hr Miscellaneous (Misc Injection) 1 vial IVP QDAC [facility] Stop: 11/30/16 09:59 Last Admin: 10/05/16 06:39 Dose: 1 vial Ondansetron HCl (Zofran) 4 mg IV UD PRN PRN Reason: Nausea / Vomiting Stop: 12/04/16 09:25 General: Other (Patient intubated) HEENT: Atraumatic Neck: Supple Cardiovascular: Regular rate Lungs: Other (Rude respiration) Abdomen: Bowel sounds, Soft, Other (Cover with chava) Extremities: Other (No edema) Neurological: Other (Non ambulatory) Skin: Other (Warm and dry) Psych/Mental Status: Other (Obtunded, Intubated, ) - Procedures Procedures: Procedures Procedure Code Date BLOOD TRANSFUSION SERVICE 43884 09/28/16 BYPASS ILEUM TO CUTANEOUS, OPEN APPROACH [id number] 09/28/16 BYPASS STOMACH TO JEJUNUM, OPEN APPROACH [id number] 09/28/16 EGD BIOPSY SINGLE/MULTIPLE 31383 09/28/16 EXCISION OF STOMACH, ENDO, DIAGN [id number] 09/28/16 EXCISION OF STOMACH, OPEN APPROACH [id number] 09/28/16 ILEOSTOMY/JEJUNOSTOMY 51471 09/28/16 REMOVAL OF STOMACH PARTIAL 80490 09/28/16 TRANSFUSE NONAUT RED BLOOD CELLS IN PERIPH VEIN, PERC 80782P7 09/28/16 Nutritional Asmnt/Malnutr-PDOC - Dietary Evaluation Malnutrition Findings (Please click <Entered> for more info): Nutritional Asmnt/Malnutrition Start: 09/29/16 16: 06 Text: Status: Complete Freq: Document 09/29/16 19:24 [facility] (Rec: 09/29/16 19:32 [facility] [id number]) Nutritional Asmnt/Malnutrition Patient General Information Nutritional Screening High Risk Screening Diagnosis Acute anemia, dehydration, clinical pneumonia Pertinent Medical Hx/Surgical Hx CHF, HTN, dementia, old CVA, muscle atrophy Subjective Information Pt is a 66-year-old male from [facility]) admitted with chief complaint of fever. Pt is nonverbal and a poor historian. Pt was laying flat in bed during time of visit. Pt appears well nourished with no signs of muscle or fat depletion. Current Diet Order/ Nutrition Support NPO Patient / S.O Can't verbalize diet edu Pertinent Medications NaCl 0.9% Pertinent Labs (09/29) Na 126L (improving), Albumin 2.2L Nutritional Hx/Data Height 1.52 m Height (Calculated Centimeters) 152.4 Current Weight (lbs) 62.596 kg Weight (Calculated Kilograms) 62.6 Weight (Calculated Grams) 81138.7 [place] Body Weight 106 % [place] Body Weight 130 Weight Status Overweight GI Symptoms GI Symptoms Constipation Food Allergies No Cultural/Ethnic/Spiritism Belief No cultural or quaker preferences noted. Per chart, at [facility], pt received 8 oz prune juice at dinner, no spicy foods, may soak crackers, bread, and cookie with milk. Clear liquid diet every Monday at 1300. Usual diet at home Medium ground diet, Ensure BID Skin Integrity/Comment: Vinod 12, improved to 15. Skin intact. Estimated Nutritional Goals BEE in Kcals: Using Current wt Calories/Kcals/Kg Based on current wt 62.7 kg for wt maintenance Kcals Calculated 1568 kcals/day Protein: Using Current wt Protein g/kg: Based on current wt 62.7 kg for wt maintenance Protein Calculated 63-75 gm/day (1-1.2 gm/kg) Fluid: ml Per MD/DO due dehydration Nutritional Problem 1. Problem Problem Inadequate energy/protein intake related to Etiology pending diagnostic procedures as evidenced by Signs/Symptoms: current NPO status. Malnutrition Alert Protein-Calorie Malnutrition N/A Is there a minimum of two criteria No selected? Query Text:Check all the applicable criteria. A minimum of two criteria are recommended for diagnosis of either severe or non-severe malnutrition. Malnutrition Related to Morbid Obesity Malnutrition related to morbid obesity No Intervention/Recommendation Comments 1. When medically appropriate, recommend mechanical soft ground diet with Boost BID. FNS to provide prune juice with dinner, to honor prior preferences. Expected Outcomes/Goals Expected Outcomes/Goals Have pt meet at least 75% of estimated nutritional needs. Physician Parameters for PEM Normal Weight % 90% - 110% (Normal) Serum Albumin (g/dl) <2.4 (Severe)
--- NOTE | 2016-10-06 08:18 | Diagnostic Imaging Report ---
Portable chest x-ray HISTORY: Shortness of breath, nasogastric tube placement Patient is rotated. Nasogastric tube is seen extending into the region of the stomach. Compared with a prior exam of October 05, 2016, persistent density that appears at least partially related to the pleura noted in the left lower hemithorax. Obscuration the left hemidiaphragm. IMPRESSION: 1. Nasogastric tube extending into the region of the stomach 2. Allowing for differences in positioning and patient rotation, no significant change in the pulmonary status
[2016-10-06] MEDS: Albumin 25% 25gm/100mL 25 GM/100 ML BTL IV SCH ×2 (08:47→10:26)
--- NOTE | 2016-10-06 08:58 | General Progress Note ---
Subjective - Review of Systems Service Date: 10/06/17 Subjective: Non Verbal, patient on mask oxygen Objective - Results Result Diagrams: 10/05/16 17:39 10/05/16 04:35 Recent Labs: Laboratory Last Values WBC 21.3 Th/cmm (4.8-10.8) H* 10/05/16 17:39 RBC 6.18 Mil/cmm (3.80-5.80) H 10/05/16 17:39 Hgb 14.8 gm/dL (12.6-17.4) 10/05/16 17:39 Hct 45.7 % (39.0-49.0) 10/05/16 17:39 MCV 74.0 fl (80-99) L 10/05/16 17:39 MCH 24.0 pg (27.0-31.0) L 10/05/16 17:39 MCHC Differential 32.5 pg (28.0-36.0) 10/05/16 17:39 RDW 24.9 % (11.5-20.0) H 10/05/16 17:39 Plt Count 604 Th/cmm (150-400) H 10/05/16 17:39 MPV 7.2 fl 10/05/16 17:39 Neutrophils % 64.3 % (40.0-80.0) 10/05/16 04:35 Band Neutrophils % 3 % (0-10) 10/05/16 17:39 Lymphocytes % 16.0 % (20.0-50.0) L 10/05/16 04:35 Monocytes % 9.8 % (2.0-10.0) 10/05/16 04:35 Eosinophils % 5.2 % (0.0-5.0) H 10/05/16 04:35 Basophils % 4.7 % (0.0-2.0) H 10/05/16 04:35 Neutrophils (Manual) 88 % (40-80) H 10/05/16 17:39 Lymphocytes 7 % (20-50) L 10/05/16 17:39 Monocytes 2 % (2-10) 10/05/16 17:39 Eosinophils 0 % (0-5) 10/05/16 17:39 Basophils 0 % (0-3) 10/05/16 17:39 Platelet Estimate INCREASED PLATELETS (NORMAL) 10/05/16 17:39 Platelet Morphology NORMAL (NORMAL) 10/05/16 17:39 Polychromasia 2+ 09/28/16 14:41 Poikilocytosis 1+ 10/01/16 06:30 Anisocytosis 2+ 10/05/16 17:39 Microcytosis 3+ 10/05/16 17:39 RBC Morph Micro Appear ABNORMAL (NORMAL) 10/05/16 17:39 PT 11.8 SECONDS (9.5-11.5) H 10/05/16 04:55 INR 1.12 (0.5-1.4) 10/05/16 04:55 PTT (Actin FS) 27.9 SECONDS (26.0-38.0) 10/05/16 04:55 Specimen Source Arterial 10/05/16 11:25 Sample Site Left Radial 10/05/16 11:25 pH 7.37 (7.35-7.45) 10/05/16 11:25 pCO2 35.0 mmHg (35.0-45.0) 10/05/16 11:25 pO2 74.0 mmHg (80.0-100.0) L 10/05/16 11:25 HCO3 21.4 mEq/L (20.0-26.0) 10/05/16 11:25 Base Excess -4.4 mEq/L (-3.0-3.0) L 10/05/16 11:25 O2 Saturation 94.0 % (92.0-100.0) 10/05/16 11:25 Gianfranco Test YES 10/05/16 11:25 Vent Rate 12 10/05/16 11:25 Inspired O2 50 10/05/16 11:25 Tidal Volume 500 10/05/16 11:25 PEEP 5 10/05/16 11:25 Pressure (ins/psv/peep) NA 10/05/16 11:25 Critical Value E.HERBERT 10/05/16 11:25 Sodium 133 mEq/L (136-145) L 10/05/16 04:35 Potassium 3.6 mEq/L (3.5-5.1) 10/05/16 04:35 Chloride 106 mEq/L (98-107) 10/05/16 04:35 Carbon Dioxide 22.2 mEq/L (21.0-31.0) 10/05/16 04:35 Anion Gap 8.4 (7.0-16.0) 10/05/16 04:35 BUN 8 mg/dL (7-25) 10/05/16 04:35 Creatinine 0.4 mg/dL (0.7-1.3) L 10/05/16 04:35 Est GFR ( Amer) > 60.0 ml/min (>90) 10/05/16 04:35 Est GFR (Non-Af Amer) > 60.0 ml/min 10/05/16 04:35 BUN/Creatinine Ratio 20.0 10/05/16 04:35 Glucose 92 mg/dL (70-105) 10/05/16 04:35 POC Glucose 92 MG/DL (70 - 105) 10/05/16 06:02 Whole Bld Lactic Acid 1.25 mmol/L (0.60-1.99) 09/28/16 14:41 Calcium 7.9 mg/dL (8.6-10.3) L 10/05/16 04:35 Iron 8 ug/dL (38-169) L 09/30/16 06:10 TIBC 161 ug/dL (250-450) L 09/30/16 06:10 Iron Saturation 5 % (15-55) L 09/30/16 06:10 Unsaturated IBC 153 ug/dL (111-343) 09/30/16 06:10 Ferritin 49 ng/mL (30-400) 09/30/16 06:10 Total Bilirubin 0.4 mg/dL (0.3-1.0) 10/05/16 04:35 AST 13 U/L (13-39) 10/05/16 04:35 ALT 11 U/L (7-52) 10/05/16 04:35 Alkaline Phosphatase 83 U/L (34-104) 10/05/16 04:35 Lactate Dehydrogenase 132 U/L (140-271) L 09/30/16 06:10 Creatine Kinase 34 U/L (30-223) 09/28/16 14:41 Troponin I < 0.01 ng/mL (0.01-0.05) L 09/28/16 14:41 Total Protein 5.0 gm/dL (6.0-8.3) L 10/05/16 04:35 Albumin 1.9 gm/dL (4.2-5.5) L 10/05/16 04:35 Globulin 3.1 gm/dL 10/05/16 04:35 Albumin/Globulin Ratio 0.6 (1.0-1.8) L 10/05/16 04:35 Vitamin B12 978 pg/mL (211-946) H 09/30/16 06:10 Folic Acid 19.4 ng/mL (>3.0) 09/30/16 06:10 Urine Source [place] 09/29/16 16:30 Urine Color YELLOW 09/29/16 16:30 Urine Clarity SLIGHT CLOUDY (CLEAR) 09/29/16 16:30 Urine pH 6.5 (4.6 - 8.0) 09/29/16 16:30 Ur Specific [place] 1.015 (1.005-1.030) 09/29/16 16:30 Urine Protein TRACE mg/dL (NEGATIVE) 09/29/16 16:30 Urine Glucose (UA) NEGATIVE mg/dL (NEGATIVE) 09/29/16 16:30 Urine Ketones NEGATIVE mg/dL (NEGATIVE) 09/29/16 16:30 Urine Blood LARGE (NEGATIVE) H 09/29/16 16:30 Urine Nitrate NEGATIVE (NEGATIVE) 09/29/16 16:30 Urine Bilirubin NEGATIVE (NEGATIVE) 09/29/16 16:30 Urine Urobilinogen 0.2 E.U./dL (0.2 - 1.0) 09/29/16 16:30 Ur Leukocyte Esterase NEGATIVE (NEGATIVE) 09/29/16 16:30 Urine RBC 25-50 /hpf (0-5) H 09/29/16 16:30 Urine WBC 0-2 /hpf (0-5) 09/29/16 16:30 Ur Epithelial Cells RARE /lpf (FEW) 09/29/16 16:30 Amorphous Sediment FEW URATES (NONE SEEN) 09/28/16 17:00 Urine Bacteria FEW /hpf (NONE SEEN) 09/29/16 16:30 Urine Mucus FEW /lpf (FEW) 09/28/16 17:00 Stool Occult Blood NEGATIVE (NEGATIVE) 09/30/16 17:11 Helicobacter pylori Ab NEGATIVE (NEGATIVE) 09/30/16 14:00 Blood Type B POSITIVE 10/05/16 04:35 Antibody Screen NEGATIVE 10/05/16 04:35 Crossmatch See Detail 09/28/16 16:32 - Physical Exam Vitals and I&O: Vital Signs Temp 97.4 F 10/06/16 06:00 Pulse 95 10/06/16 07:00 Resp 27 10/06/16 07:00 BP 124/64 10/06/16 07:00 Pulse Ox 97 10/06/16 07:00 Intake & Output 10/05/16 10/06/16 10/06/16 18:59 06:59 18:59 Intake Total 486 1200 Output Total 360 27 Balance 126 1173 Weight (lbs) 58.922 kg 58.513 kg Intake: Intake, IV Amount 486 1200 Levofloxacin 500mg/100mL 200 500 mg In 100 ml @ 100 mls/hr IV Q24HR [facility] Rx#: [id number] Sodium Chloride 0.9% 1, 1000 000 ml @ 120 mls/hr IV . Q8H20M [facility] Rx#:[id number] Sodium Chloride 0.9% 1, 486 000 ml @ 90 mls/hr IV . Q11H7M [facility] Rx#:[id number] Output: Gastric Drainage 200 Drainage 10 2 Left Lower Abdomen 10 2 Urine 150 25 Other: # Bowel Movements 0 Active Medications: Current Medications Acetaminophen (Tylenol) 650 mg PO Q6HR PRN PRN Reason: TEMP 100.0 AND ABOVE Stop: 11/27/16 20:42 Last Admin: 09/29/16 15:58 Dose: 650 mg Albuterol/Ipratropium (Duoneb Neb) 3 ml HHN Q6HRT [facility] Stop: 12/04/16 12:59 Last Admin: 10/06/16 08:01 Dose: 3 ml Chlorhexidine Gluconate (Peridex) 15 ml MM 08,1999 [facility] Stop: 12/04/16 19:59 Last Admin: 10/05/16 20:00 Dose: 15 ml Hydromorphone HCl (Dilaudid) 1 mg IVP Q4HR PRN PRN Reason: Pain (Mild) Stop: 12/04/16 10:25 Last Admin: 10/05/16 11:52 Dose: 1 mg Levofloxacin (Levaquin Pb) 500 mg in 100 mls @ 100 mls/hr IV Q24HR [facility] Stop: 11/28/16 20:59 Last Infusion: 10/05/16 22:00 Dose: Infused Sodium Chloride (Nacl 0.9%) 1,000 mls @ 120 mls/hr IV .Q8H20M [facility] Stop: 12/04/16 17:08 Last Admin: 10/06/16 07:02 Dose: 120 mls/hr Metronidazole 500 mg/ (Miscellaneous) 100 mls @ 100 mls/hr IV Q8H [facility] Stop: 12/05/16 07:59 Albumin Human (Albuminar 25%) 25 gm in 100 mls @ 50 mls/hr IV Q2H [facility] Stop: 10/06/16 11:59 Last Admin: 10/06/16 08:47 Dose: 50 mls/hr Miscellaneous (Misc Injection) 1 vial IVP QDAC [facility] Stop: 11/30/16 09:59 Last Admin: 10/05/16 06:39 Dose: 1 vial Ondansetron HCl (Zofran) 4 mg IV UD PRN PRN Reason: Nausea / Vomiting Stop: 12/04/16 09:25 General: Alert, Other (Eyes open non verbal) HEENT: Atraumatic Neck: Supple Cardiovascular: Regular rate, Other (Tachicardic) Lungs: Other (Rude respiration) Abdomen: Bowel sounds, Soft, Other (Cover with chava) Extremities: Other (No edema) Neurological: Other (Non ambulatory) Skin: Other (Warm and dry) Psych/Mental Status: Other (Awake, eyes open, non verbal) - Procedures Procedures: Procedures Procedure Code Date BLOOD TRANSFUSION SERVICE 76468 09/28/16 BYPASS ILEUM TO CUTANEOUS, OPEN APPROACH [id number] 09/28/16 BYPASS STOMACH TO JEJUNUM, OPEN APPROACH [id number] 09/28/16 EGD BIOPSY SINGLE/MULTIPLE 51762 09/28/16 EXCISION OF STOMACH, ENDO, DIAGN [id number] 09/28/16 EXCISION OF STOMACH, OPEN APPROACH [id number] 09/28/16 ILEOSTOMY/JEJUNOSTOMY 81400 09/28/16 REMOVAL OF STOMACH PARTIAL 47589 09/28/16 TRANSFUSE NONAUT RED BLOOD CELLS IN PERIPH VEIN, PERC [id number] 09/28/16 Assessment/Plan - Assessment Assessment: Patient extubated himself yesterday, but is breathing well with mask. WBC went up. He had extensive surgery (Partial gastrectomy, Hemicolectomy, Gastrojejunostomy, Diverting Ileostomy, and mucus colostomy. Dx: Adenocarcinoma of stomach and transverse colon, [place], acute anemia, dehydration, clinic PNA, Dementia, HTN, S/P CVA, - Plan Plan: Patient in critical condition. Consult with ID is done. On IV NS, Protonix, on Metronidazol, already transfused. will continue to monitor Nutritional Asmnt/Malnutr-PDOC - Dietary Evaluation Malnutrition Findings (Please click <Entered> for more info): Nutritional Asmnt/Malnutrition Start: 09/29/16 16: 06 Text: Status: Complete Freq: Document 09/29/16 19:24 [facility] (Rec: 09/29/16 19:32 [facility] [id number]) Nutritional Asmnt/Malnutrition Patient General Information Nutritional Screening High Risk Screening Diagnosis Acute anemia, dehydration, clinical pneumonia Pertinent Medical Hx/Surgical Hx CHF, HTN, dementia, old CVA, muscle atrophy Subjective Information Pt is a 66-year-old male from [facility]) admitted with chief complaint of fever. Pt is nonverbal and a poor historian. Pt was laying flat in bed during time of visit. Pt appears well nourished with no signs of muscle or fat depletion. Current Diet Order/ Nutrition Support NPO Patient / S.O Can't verbalize diet edu Pertinent Medications NaCl 0.9% Pertinent Labs (09/29) Na 126L (improving), Albumin 2.2L Nutritional Hx/Data Height 1.52 m Height (Calculated Centimeters) 152.4 Current Weight (lbs) 62.596 kg Weight (Calculated Kilograms) 62.6 Weight (Calculated Grams) 19121.7 [place] Body Weight 106 % [place] Body Weight 130 Weight Status Overweight GI Symptoms GI Symptoms Constipation Food Allergies No Cultural/Ethnic/Hinduism Belief No cultural or sikh preferences noted. Per chart, at [facility], pt received 8 oz prune juice at dinner, no spicy foods, may soak crackers, bread, and cookie with milk. Clear liquid diet every Monday at 1300. Usual diet at home Medium ground diet, Ensure BID Skin Integrity/Comment: Vinod Cardenas, improved to 15. Skin intact. Estimated Nutritional Goals BEE in Kcals: Using Current wt Calories/Kcals/Kg Based on current wt 62.7 kg for wt maintenance Kcals Calculated 1568 kcals/day Protein: Using Current wt Protein g/kg: Based on current wt 62.7 kg for wt maintenance Protein Calculated 63-75 gm/day (1-1.2 gm/kg) Fluid: ml Per MD/DO due dehydration Nutritional Problem 1. Problem Problem Inadequate energy/protein intake related to Etiology pending diagnostic procedures as evidenced by Signs/Symptoms: current NPO status. Malnutrition Alert Protein-Calorie Malnutrition N/A Is there a minimum of two criteria No selected? Query Text:Check all the applicable criteria. A minimum of two criteria are recommended for diagnosis of either severe or non-severe malnutrition. Malnutrition Related to Morbid Obesity Malnutrition related to morbid obesity No Intervention/Recommendation Comments 1. When medically appropriate, recommend mechanical soft ground diet with Boost BID. FNS to provide prune juice with dinner, to honor prior preferences. Expected Outcomes/Goals Expected Outcomes/Goals Have pt meet at least 75% of estimated nutritional needs. Physician Parameters for PEM Normal Weight % 90% - 110% (Normal) Serum Albumin (g/dl) <2.4 (Severe)
--- NOTE | 2016-10-06 09:08 | Diagnostic Imaging Report ---
Portable chest x-ray HISTORY: Shortness of breath, nasogastric tube placement Compared to prior exam of October 05, 2016, a nasogastric tube remains over the gastric area. There remains abnormal density in the left lower hemithorax with obscuration of left hemidiaphragm. Changes may be related to the pleura. Consolidation and/or atelectasis cannot be excluded. IMPRESSION: 1. Nasogastric tube projecting of the gastric area 2. Persistent density left lower hemithorax. Findings may be associated with the pleura. Consolidation and/or atelectasis cannot be excluded.
--- NOTE | 2016-10-06 09:10 | Diagnostic Imaging Report ---
Upper GI (Limited) HISTORY: Pain, status post surgery. Water-soluble contrast was instilled through the patient's nasogastric tube. The exam demonstrates intraluminal opacification of the stomach. No extravasation. Mildly dilated loops of large and small bowel noted. Surgical drain projects over the left abdomen. Surgical ameena also noted over the mid abdomen. IMPRESSION: 1. Opacification gastric lumen with no definite extravasation 2. Mildly dilated loops of large and small bowel. In view of the patient's recent surgery, findings may be associated with an ileus.
[2016-10-06 09:51] LABS: pH 7.44 (7.35-7.45)
[2016-10-06 09:52] LABS: ABG SOURCE Arterial; ALLEN TEST Positive; BE(B) -0.6 mEq/L (-3.0-3.0); FIO2 40; HCO3 24.4 mEq/L (20.0-26.0)
[2016-10-06 10:04] LABS: MEAN CELL VOLUME 73.8 fl (80-99); MEAN CORPUSCULAR HEMOGLOBIN 24.2 pg (27.0-31.0); MEAN CORPUSCULAR HGB CONC 32.8 pg (28.0-36.0); RED CELL DISTRIBUTION WIDTH 25.2 % (11.5-20.0)
[2016-10-06 10:21] LABS: ALKALINE PHOSPHATASE 65 U/L (34-104); ANION GAP 8.8 (7.0-16.0); BILIRUBIN,TOTAL 0.6 mg/dL (0.3-1.0); BUN - UREA NITROGEN 14 mg/dL (7-25); BUN/CREATININE RATIO 23.3; CALCIUM SERUM 8.4 mg/dL (8.6-10.3); CARBON DIOXIDE 20.6 mEq/L (21.0-31.0); CHLORIDE 109 mEq/L (98-107); CREATININE - SERUM 0.6 mg/dL (0.7-1.3); GLUCOSE 123 mg/dL (70-105); POTASSIUM SERUM 3.4 mEq/L (3.5-5.1); SGOT 10 U/L (13-39); SGPT/ALT 9 U/L (7-52); SODIUM SERUM 135 mEq/L (136-145)
[2016-10-06 10:25] LABS: WHITE BLOOD COUNT 14.7 Th/cmm (4.8-10.8)
[2016-10-06 10:26] LABS: HEMATOCRIT 31.7 % (39.0-49.0); HEMOGLOBIN 10.4 gm/dL (12.6-17.4); PLATELET COUNT 408 Th/cmm (150-400)
[2016-10-06] MEDS: ESOMEPRAZOLE 40 MG IVP SCH (10:26)
[2016-10-06] MEDS: metroNIDAZOLE 500mg/NS 100mL 500 MG in Premix Fluid 1 BAG IV SCH ×3 (10:26→23:25)
[2016-10-06] MEDS: Chlorhexidine Gluconate 0.12% 15mL Mouthwash MM SCH ×2 (10:30→21:23)
[2016-10-06] MEDS: HYDROmorphone 1 mg/mL 1mL Syr IVP PRN ×2 (10:37→18:41)
[2016-10-06 11:34] LABS: ANISOCYTOSIS 2+; BAND NEUTROPHILE 8 % (0-10); MICROCYTOSIS 2+; NEUTROPHILS 78 % (40-80); PLATELET ESTIMATE ADEQUATE (NORMAL); PLATELET MORPHOLOGY NORMAL (NORMAL); TOTAL CELLS COUNTED 100
[2016-10-06] MEDS ORDERED: Sodium Chloride 0.9% 250 ML IV ONE (15:46)
[2016-10-06] MEDS: Levofloxacin 500mg/100mL 500 MG/100 ML BAG IV SCH (21:00)
[2016-10-07] MEDS: HYDROmorphone 1 mg/mL 1mL Syr IVP PRN ×2 (01:43→08:12)
[2016-10-07] MEDS: Albuterol/Ipratropium Neb 3 ML AERS HHN SCH ×6 (02:49→23:29)
[2016-10-07 05:17] LABS: HEMOGLOBIN 9.6 gm/dL (12.6-17.4); MEAN CELL VOLUME 74.5 fl (80-99); MEAN CORPUSCULAR HEMOGLOBIN 23.9 pg (27.0-31.0); RED BLOOD COUNT 4.02 Mil/cmm (3.80-5.80); RED CELL DISTRIBUTION WIDTH 24.9 % (11.5-20.0)
[2016-10-07 05:37] LABS: ALKALINE PHOSPHATASE 62 U/L (34-104); ANION GAP 8.9 (7.0-16.0); BILIRUBIN,TOTAL 0.6 mg/dL (0.3-1.0); BUN - UREA NITROGEN 8 mg/dL (7-25); CALCIUM SERUM 8.3 mg/dL (8.6-10.3); CARBON DIOXIDE 20.3 mEq/L (21.0-31.0); CHLORIDE 114 mEq/L (98-107); CREATININE - SERUM 0.5 mg/dL (0.7-1.3); GLUCOSE 88 mg/dL (70-105); POTASSIUM SERUM 3.2 mEq/L (3.5-5.1); SGOT 12 U/L (13-39); SGPT/ALT 9 U/L (7-52); SODIUM SERUM 140 mEq/L (136-145)
[2016-10-07 06:02] LABS: WHITE BLOOD COUNT 15.4 Th/cmm (4.8-10.8)
[2016-10-07 06:03] LABS: PLATELET COUNT 321 Th/cmm (150-400)
[2016-10-07] MEDS: Sodium Chloride 0.9% 1,000 ML IV SCH (06:50)
[2016-10-07 07:42] LABS: ANISOCYTOSIS 1+; BAND NEUTROPHILE 10 % (0-10); MICROCYTOSIS 2+; NEUTROPHILS 75 % (40-80); PLATELET ESTIMATE ADEQUATE (NORMAL); PLATELET MORPHOLOGY NORMAL (NORMAL); TOTAL CELLS COUNTED 100
--- NOTE | 2016-10-07 07:49 | General Progress Note ---
Subjective - Review of Systems Service Date: 10/07/16 Events since last encounter: labs noted LARA drain serous, minimal urine output good gas in ileostomy, empty colostomy xray chest - opacified left hemithorax, will check with Dr. Maldonado Objective - Results Result Diagrams: 10/07/16 04:51 10/07/16 04:51 Recent Labs: Laboratory Last Values WBC 15.4 Th/cmm (4.8-10.8) H 10/07/16 04:51 RBC 4.02 Mil/cmm (3.80-5.80) 10/07/16 04:51 Hgb 9.6 gm/dL (12.6-17.4) L 10/07/16 04:51 Hct 30.0 % (39.0-49.0) L 10/07/16 04:51 MCV 74.5 fl (80-99) L 10/07/16 04:51 MCH 23.9 pg (27.0-31.0) L 10/07/16 04:51 MCHC Differential 32.0 pg (28.0-36.0) 10/07/16 04:51 RDW 24.9 % (11.5-20.0) H 10/07/16 04:51 Plt Count 321 Th/cmm (150-400) D 10/07/16 04:51 MPV 7.0 fl 10/07/16 04:51 Neutrophils % 64.3 % (40.0-80.0) 10/05/16 04:35 Band Neutrophils % 10 % (0-10) 10/07/16 04:51 Lymphocytes % 16.0 % (20.0-50.0) L 10/05/16 04:35 Monocytes % 9.8 % (2.0-10.0) 10/05/16 04:35 Eosinophils % 5.2 % (0.0-5.0) H 10/05/16 04:35 Basophils % 4.7 % (0.0-2.0) H 10/05/16 04:35 Neutrophils (Manual) 75 % (40-80) 10/07/16 04:51 Lymphocytes 11 % (20-50) L 10/07/16 04:51 Monocytes 4 % (2-10) 10/07/16 04:51 Eosinophils 0 % (0-5) 10/05/16 17:39 Basophils 0 % (0-3) 10/05/16 17:39 Platelet Estimate ADEQUATE (NORMAL) 10/07/16 04:51 Platelet Morphology NORMAL (NORMAL) 10/07/16 04:51 Polychromasia 2+ 09/28/16 14:41 Poikilocytosis 1+ 10/01/16 06:30 Anisocytosis 1+ 10/07/16 04:51 Microcytosis 2+ 10/07/16 04:51 RBC Morph Micro Appear AB (NORMAL) 10/07/16 04:51 PT 11.8 SECONDS (9.5-11.5) H 10/05/16 04:55 INR 1.12 (0.5-1.4) 10/05/16 04:55 PTT (Actin FS) 27.9 SECONDS (26.0-38.0) 10/05/16 04:55 Specimen Source Arterial 10/06/16 09:37 Sample Site Left Radial 10/06/16 09:37 pH 7.44 (7.35-7.45) 10/06/16 09:37 pCO2 34.0 mmHg (35.0-45.0) L 10/06/16 09:37 pO2 79.0 mmHg (80.0-100.0) L 10/06/16 09:37 HCO3 24.4 mEq/L (20.0-26.0) 10/06/16 09:37 Base Excess -0.6 mEq/L (-3.0-3.0) 10/06/16 09:37 O2 Saturation 96.0 % (92.0-100.0) 10/06/16 09:37 Gianfranco Test Positive 10/06/16 09:37 Vent Rate NA 10/06/16 09:37 Inspired O2 40 10/06/16 09:37 Tidal Volume NA 10/06/16 09:37 PEEP NA 10/06/16 09:37 Pressure (ins/psv/peep) NA 10/06/16 09:37 Critical Value LZHANG 10/06/16 09:37 Sodium 140 mEq/L (136-145) 10/07/16 04:51 Potassium 3.2 mEq/L (3.5-5.1) L 10/07/16 04:51 Chloride 114 mEq/L (98-107) H 10/07/16 04:51 Carbon Dioxide 20.3 mEq/L (21.0-31.0) L 10/07/16 04:51 Anion Gap 8.9 (7.0-16.0) 10/07/16 04:51 BUN 8 mg/dL (7-25) 10/07/16 04:51 Creatinine 0.5 mg/dL (0.7-1.3) L 10/07/16 04:51 Est GFR ( Amer) > 60.0 ml/min (>90) 10/07/16 04:51 Est GFR (Non-Af Amer) > 60.0 ml/min 10/07/16 04:51 BUN/Creatinine Ratio 16.0 10/07/16 04:51 Glucose 88 mg/dL (70-105) 10/07/16 04:51 POC Glucose 92 MG/DL (70 - 105) 10/05/16 06:02 Whole Bld Lactic Acid 1.25 mmol/L (0.60-1.99) 09/28/16 14:41 Calcium 8.3 mg/dL (8.6-10.3) L 10/07/16 04:51 Iron 8 ug/dL (38-169) L 09/30/16 06:10 TIBC 161 ug/dL (250-450) L 09/30/16 06:10 Iron Saturation 5 % (15-55) L 09/30/16 06:10 Unsaturated IBC 153 ug/dL (111-343) 09/30/16 06:10 Ferritin 49 ng/mL (30-400) 09/30/16 06:10 Total Bilirubin 0.6 mg/dL (0.3-1.0) 10/07/16 04:51 AST 12 U/L (13-39) L 10/07/16 04:51 ALT 9 U/L (7-52) 10/07/16 04:51 Alkaline Phosphatase 62 U/L (34-104) 10/07/16 04:51 Lactate Dehydrogenase 132 U/L (140-271) L 09/30/16 06:10 Creatine Kinase 34 U/L (30-223) 09/28/16 14:41 Troponin I < 0.01 ng/mL (0.01-0.05) L 09/28/16 14:41 Total Protein 4.7 gm/dL (6.0-8.3) L 10/07/16 04:51 Albumin 2.4 gm/dL (4.2-5.5) L 10/07/16 04:51 Globulin 2.3 gm/dL 10/07/16 04:51 Albumin/Globulin Ratio 1.0 (1.0-1.8) 10/07/16 04:51 Vitamin B12 978 pg/mL (211-946) H 09/30/16 06:10 Folic Acid 19.4 ng/mL (>3.0) 09/30/16 06:10 Urine Source [place] 09/29/16 16:30 Urine Color YELLOW 09/29/16 16:30 Urine Clarity SLIGHT CLOUDY (CLEAR) 09/29/16 16:30 Urine pH 6.5 (4.6 - 8.0) 09/29/16 16:30 Ur Specific [place] 1.015 (1.005-1.030) 09/29/16 16:30 Urine Protein TRACE mg/dL (NEGATIVE) 09/29/16 16:30 Urine Glucose (UA) NEGATIVE mg/dL (NEGATIVE) 09/29/16 16:30 Urine Ketones NEGATIVE mg/dL (NEGATIVE) 09/29/16 16:30 Urine Blood LARGE (NEGATIVE) H 09/29/16 16:30 Urine Nitrate NEGATIVE (NEGATIVE) 09/29/16 16:30 Urine Bilirubin NEGATIVE (NEGATIVE) 09/29/16 16:30 Urine Urobilinogen 0.2 E.U./dL (0.2 - 1.0) 09/29/16 16:30 Ur Leukocyte Esterase NEGATIVE (NEGATIVE) 09/29/16 16:30 Urine RBC 25-50 /hpf (0-5) H 09/29/16 16:30 Urine WBC 0-2 /hpf (0-5) 09/29/16 16:30 Ur Epithelial Cells RARE /lpf (FEW) 09/29/16 16:30 Amorphous Sediment FEW URATES (NONE SEEN) 09/28/16 17:00 Urine Bacteria FEW /hpf (NONE SEEN) 09/29/16 16:30 Urine Mucus FEW /lpf (FEW) 09/28/16 17:00 Stool Occult Blood NEGATIVE (NEGATIVE) 09/30/16 17:11 Helicobacter pylori Ab NEGATIVE (NEGATIVE) 09/30/16 14:00 Blood Type B POSITIVE 10/05/16 04:35 Antibody Screen NEGATIVE 10/05/16 04:35 Crossmatch See Detail 09/28/16 16:32 - Physical Exam Vitals and I&O: Vital Signs Temp 97.1 F 10/07/16 04:00 Pulse 107 10/07/16 06:00 Resp 24 10/07/16 06:00 BP 116/80 10/07/16 06:00 Pulse Ox 96 10/07/16 06:00 Intake & Output 10/06/16 10/07/16 10/07/16 18:59 06:59 18:59 Intake Total 2382.5 1450 Output Total 1100 1150 Balance 1282.5 300 Weight (lbs) 56.699 kg 57.153 kg Intake: Intake, IV Amount 2282.5 1450 Albumin 25% 25gm/100mL 25 82.5 gm In 100 ml @ 50 mls/hr IV Q2H [facility] Rx#:[id number] Levofloxacin 500mg/100mL 100 500 mg In 100 ml @ 100 mls/hr IV Q24HR [facility] Rx#: [id number] Sodium Chloride 0.9% 1, 1400 1000 000 ml @ 120 mls/hr IV . Q8H20M [facility] Rx#:[id number] Sodium Chloride 0.9% 250 250 ml @ Wide Open IV .Q0M [facility] Rx#:[id number] Vancomycin HCl 1 gm In 250 250 Sodium Chloride 0.9% 250 ml @ 165 mls/hr IV Q12H [facility] Rx#:[id number] metroNIDAZOLE 500mg/NS 200 100 100mL 500 mg In Premix Fluid 1 bag @ 100 mls/hr IV Q8H [facility] Rx#:[id number] Oral 0 Tube Feeding 0 TPN/PPN 0 Blood Product 0 Lipid 0 Albumin 100 Other 0 Output: Gastric Drainage 250 50 Drainage 400 Left Lower Abdomen 400 Urine 650 700 Stool 0 0 Urine/Stool Mix 0 Emesis 0 Hemodialysis 0 Other 200 Other: # Voids 1 # Bowel Movements 0 0 Active Medications: Current Medications Acetaminophen (Tylenol) 650 mg PO Q6HR PRN PRN Reason: TEMP 100.0 AND ABOVE Stop: 11/27/16 20:42 Last Admin: 09/29/16 15:58 Dose: 650 mg Albuterol/Ipratropium (Duoneb Neb) 3 ml HHN Q4HRT [facility] Stop: 12/05/16 18:59 Last Admin: 10/07/16 07:46 Dose: 3 ml Chlorhexidine Gluconate (Peridex) 15 ml MM 0800,2000 [facility] Stop: 12/04/16 19:59 Last Admin: 10/06/16 21:23 Dose: 15 ml Hydromorphone HCl (Dilaudid) 1 mg IVP Q4HR PRN PRN Reason: Pain (Mild) Stop: 12/04/16 10:25 Last Admin: 10/07/16 01:43 Dose: 1 mg Levofloxacin (Levaquin Pb) 500 mg in 100 mls @ 100 mls/hr IV Q24HR [facility] Stop: 11/28/16 20:59 Last Infusion: 10/06/16 22:00 Dose: Infused Sodium Chloride (Nacl 0.9%) 1,000 mls @ 120 mls/hr IV .Q8H20M [facility] Stop: 12/04/16 17:08 Last Admin: 10/07/16 06:50 Dose: 120 mls/hr Metronidazole 500 mg/ (Miscellaneous) 100 mls @ 100 mls/hr IV Q8H [facility] Stop: 12/05/16 07:59 Last Infusion: 10/07/16 05:04 Dose: Infused Vancomycin HCl 1 gm/ Sodium (Chloride) 250 mls @ 165 mls/hr IV Q12H [facility] Stop: 12/05/16 13:59 Last Infusion: 10/07/16 05:04 Dose: Infused Norepinephrine Bitartrate 4 mg (/ Dextrose) 254 mls @ 0 mls/hr IV TITR PRN; Protocol; Titrate PRN Reason: BP MAINTENANCE (PER PROTOCOL) Stop: 12/05/16 20:20 Miscellaneous (Misc Injection) 1 vial IVP QDAC [facility] Stop: 11/30/16 09:59 Last Admin: 10/06/16 10:26 Dose: 1 vial Miscellaneous (Vancomycin Iv Per Pharmacy) 1 ea MC PRN [facility] Stop: 12/05/16 12:59 Ondansetron HCl (Zofran) 4 mg IV UD PRN PRN Reason: Nausea / Vomiting Stop: 12/04/16 09:25 General: Alert, Other (Eyes open non verbal) HEENT: Atraumatic Neck: Supple Cardiovascular: Regular rate, Other (Tachicardic) Lungs: Other (Rude respiration) Abdomen: Bowel sounds, Soft, Other (Cover with chava) Extremities: Other (No edema) Neurological: Other (Non ambulatory) Skin: Other (Warm and dry) Psych/Mental Status: Other (Awake, eyes open, non verbal) - Procedures Procedures: Procedures Procedure Code Date BLOOD TRANSFUSION SERVICE 69552 09/28/16 BYPASS ILEUM TO CUTANEOUS, OPEN APPROACH [id number] 09/28/16 BYPASS STOMACH TO JEJUNUM, OPEN APPROACH [id number] 09/28/16 EGD BIOPSY SINGLE/MULTIPLE 05843 09/28/16 EXCISION OF STOMACH, ENDO, DIAGN [id number] 09/28/16 EXCISION OF STOMACH, OPEN APPROACH [id number] 09/28/16 ILEOSTOMY/JEJUNOSTOMY 08646 09/28/16 REMOVAL OF STOMACH PARTIAL 97070 09/28/16 TRANSFUSE NONAUT RED BLOOD CELLS IN PERIPH VEIN, PERC 44898F3 09/28/16 Nutritional Asmnt/Malnutr-PDOC - Dietary Evaluation Malnutrition Findings (Please click <Entered> for more info): Nutritional Asmnt/Malnutrition Start: 09/29/16 16: 06 Text: Status: Complete Freq: Document 09/29/16 19:24 [facility] (Rec: 09/29/16 19:32 [facility] [id number]) Nutritional Asmnt/Malnutrition Patient General Information Nutritional Screening High Risk Screening Diagnosis Acute anemia, dehydration, clinical pneumonia Pertinent Medical Hx/Surgical Hx CHF, HTN, dementia, old CVA, muscle atrophy Subjective Information Pt is a 66-year-old male from [facility] admitted with chief complaint of fever. Pt is nonverbal and a poor historian. Pt was laying flat in bed during time of visit. Pt appears well nourished with no signs of muscle or fat depletion. Current Diet Order/ Nutrition Support NPO Patient / S.O Can't verbalize diet edu Pertinent Medications NaCl 0.9% Pertinent Labs (09/29) Na 126L (improving), Albumin 2.2L Nutritional Hx/Data Height 1.52 m Height (Calculated Centimeters) 152.4 Current Weight (lbs) 62.596 kg Weight (Calculated Kilograms) 62.6 Weight (Calculated Grams) 19436.7 [place] Body Weight 106 % [place] Body Weight 130 Weight Status Overweight GI Symptoms GI Symptoms Constipation Food Allergies No Cultural/Ethnic/Confucianist Belief No cultural or lutheran preferences noted. Per chart, at [facility], pt received 8 oz prune juice at dinner, no spicy foods, may soak crackers, bread, and cookie with milk. Clear liquid diet every Monday at 1300. Usual diet at home Medium ground diet, Ensure BID Skin Integrity/Comment: Vinod Cardenas, improved to 15. Skin intact. Estimated Nutritional Goals BEE in Kcals: Using Current wt Calories/Kcals/Kg Based on current wt 62.7 kg for wt maintenance Kcals Calculated 1568 kcals/day Protein: Using Current wt Protein g/kg: Based on current wt 62.7 kg for wt maintenance Protein Calculated 63-75 gm/day (1-1.2 gm/kg) Fluid: ml Per MD/DO due dehydration Nutritional Problem 1. Problem Problem Inadequate energy/protein intake related to Etiology pending diagnostic procedures as evidenced by Signs/Symptoms: current NPO status. Malnutrition Alert Protein-Calorie Malnutrition N/A Is there a minimum of two criteria No selected? Query Text:Check all the applicable criteria. A minimum of two criteria are recommended for diagnosis of either severe or non-severe malnutrition. Malnutrition Related to Morbid Obesity Malnutrition related to morbid obesity No Intervention/Recommendation Comments 1. When medically appropriate, recommend mechanical soft ground diet with Boost BID. FNS to provide prune juice with dinner, to honor prior preferences. Expected Outcomes/Goals Expected Outcomes/Goals Have pt meet at least 75% of estimated nutritional needs. Physician Parameters for PEM Normal Weight % 90% - 110% (Normal) Serum Albumin (g/dl) <2.4 (Severe)
[2016-10-07] MEDS: metroNIDAZOLE 500mg/NS 100mL 500 MG in Premix Fluid 1 BAG IV SCH ×2 (08:35→16:54)
--- NOTE | 2016-10-07 08:46 | Diagnostic Imaging Report ---
CHEST X-RAY: AP view INDICATION: Shortness of breath COMPARISON: Chest x-ray 10/06/2016 FINDINGS: NG tube is seen with tip in the stomach. There has been interval complete opacification of the left hemithorax which may be due to underlying lung collapse and possible pleural effusion. Chronic right lung changes are noted. Old right rib fractures are noted. IMPRESSION: Interval complete opacification of the left hemithorax favoring lung collapse possibly due to a mucous plug. There is likely superimposed left pleural effusion and possible pneumonia. Clinical correlation and follow-up is recommended. Results relayed to referring team on 10/07/2016 at 8:40 AM.
[2016-10-07 09:14] LABS: HCO3 24.6 mEq/L (20.0-26.0); pH 7.41 (7.35-7.45)
[2016-10-07 09:15] LABS: ABG SOURCE Arterial; ALLEN TEST PASS; BE(B) -0.4 mEq/L (-3.0-3.0); CRITICAL VALUES REPORTED BY PW; FIO2 60
[2016-10-07] MEDS: Chlorhexidine Gluconate 0.12% 15mL Mouthwash MM SCH ×3 (09:57→20:44)
[2016-10-07] MEDS: ESOMEPRAZOLE 40 MG IVP SCH (10:30)
--- NOTE | 2016-10-07 11:07 | Diagnostic Imaging Report ---
Exam: Portable summation of chest HISTORY: Endotracheal tube placement Findings: Portable upright examination of the chest at 1039 hours was reviewed no prior studies available for comparison. The study demonstrates endotracheal tube 1 cm above the neelam should be pulled back at least 2 cm. There is deformity right chest wall with multiple healed fractures. The patient significantly rotated. Mediastinal structures midline. The left costophrenic angle blunted small effusion cannot be excluded. Mild congestion cannot be excluded. Please check the position of the NG tube if such is present. IMPRESSION: 1. Endotracheal tube 1 cm above the neelam 2. Questionable mild congestion. 3. Question of left pleural effusion
[2016-10-07] MEDS ORDERED: Dextrose 10% 1,000 ML IV SCH (13:00)
[2016-10-07 13:29] LABS: BE(B) 0.9 mEq/L (-3.0-3.0); HCO3 25.7 mEq/L (20.0-26.0); pH 7.48 (7.35-7.45)
[2016-10-07 13:30] LABS: ABG SOURCE Arterial; ALLEN TEST PASS; CRITICAL VALUES REPORTED BY PW; FIO2 100; MECH RATE 14; MECH VT 500
--- NOTE | 2016-10-07 13:33 | Consultation ---
DATE OF CONSULTATION: 10/06/2016 PRIMARY PHYSICIAN: Dr. Wagner. This is a 66-year-old male who was brought to the Emergency Room with complaint of the review on the day of admission. HISTORY OF PRESENT ILLNESS: The patient lives in a halfway and unable to provide meaningful history, was found to have fever. The patient came to ER, where the patient was evaluated, was found to have septic shock, admitted to ICU, workup shows pneumonia, ileus and small bowel obstruction. The patient was seen by Dr. Houston and GI Dr. Crowley. CT scan did show fecal impaction with wall thickening of bowel. The patient underwent endoscopy which shows gastric mass. 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 The patient underwent partial gastrectomy, right hemicolectomy, gastrojejunostomy, colostomy, diverting ileostomy. Because of adenocarcinoma, the patient also was found to have megacolon. Infectious disease consultation was called for further treatment. Cultures reviewed. Blood culture being negative so far. PAST MEDICAL HISTORY: Hypertension, severe dementia, constipation. FAMILY HISTORY: Negative. SOCIAL HISTORY: Nonsmoker. REVIEW OF SYSTEMS: A 14-point review of systems: Unable to obtain. PHYSICAL EXAMINATION: GENERAL: The patient is an elderly male. VITAL SIGNS: Temperature is 97.1, pulse 110, respiration 22 and blood pressure 104/62. HEENT: Mild pallor. No icterus, no plaque. NECK: Supple. LUNGS: Breath sounds bilateral vesicular. ABDOMEN: . NODES: No thyroid. No cervical lymph nodes. LABORATORY DATA: White count is 21,000, hemoglobin is 14 g, platelets 604. Chest x-ray reviewed shows endotracheal tube and congestion, pleural effusion. DIAGNOSES: Gastric cancer status post resection. PLAN: The patient started on vancomycin. Continue Levaquin and Flagyl, supportive care. Wait for the culture report and repeat labs tomorrow. Supportive care discussed with the staff. Thank you, Dr. Wagner for this consultation. JOB# [id number]
--- NOTE | 2016-10-07 15:17 | Pathology Report ---
[id number] Collection Date: 10/05/2016 Surgeon: Dr. Jessica Houston Specimen Description: Gastric/Right colon combined resection Gross Description: Received in formalin is a composite resection of the stomach and right colon with the entire specimen measuring 28 x 21 x 16 cm. The outer surface of the specimen consists of abundant yellow omental adipose tissue with the stomach identified measuring 17 cm in length. Multiple fibrous adhesions are seen connecting the greater curvature of the stomach to the transverse colon which has an extensive omental coating in this region (inked blue at the serosal margin). Opening the right colon reveals a twisted length of approx. 38 cm, showing a normal appendix, ileocecal valve, and ascending colon with numerous fibrous adhesions connected to the stomach. The transverse colon also has a twisted and tortuous appearance measuring up to 7 cm in outer diameter. Opening the stomach reveals a 12 cm polypoid exophytic mass that also invades through the gastric wall and into the adjacent wall of the transverse colon where there is a submucosal nodular firm mass measuring 2 cm. There are no intramucosal tumors in the colon. Sectioning of the intragastric portion of the tumor shows extensive tumor degeneration with yellowish central softening alternating with other areas having a more intact vázquez, firm appearance. The gastric mucosal margins appear to be cleared by at least 3 cm, and the colon margins are negative for tumor. Multiple vázquez lymph nodes are identified in the omentum and pericolic adipose tissue, measuring up to 1.0 cm in greatest dimension. Sectioning shows no gross evidence for tumor in these lymph nodes. Legal Operations Manager sections are submitted in 15 cassettes. Cassette A1 shows the proximal and distal colon margins, cassette A2 shows nearest gastric margin, cassette A3 shows the appendix and ileocecal valve, cassettes A4 to A7 show the gastric tumor, cassette A8 shows submucosal nodular mass in the transverse colon, and cassettes A9 through A15 show the lymph nodes. Microscopic Description: The histologic sections show a moderately differentiated adenocarcinoma involving the stomach, with focal extension through the gastric wall and into the wall of the transverse colon. The tumor cells show moderate nuclear enlargement and pleomorphism with distinct glandular structures formed, including complex tubular and focal cribriform patterns. Extensive necrosis is seen within the glands as well as large areas of necrosis within the tumor. A dense fibrotic reaction is seen connecting the stomach to the transverse colon, but there is no evidence for tumor involvement of the serosal surface of the specimen (inked blue). There is no evidence for lymphovascuar tumor involvement. The serosal and mucosal margins are also negative for tumor. Thirteen perigastric and pericolic lymph nodes are examined and show no evidence for tumor. Diagnosis: 1. Infiltrating moderately differentiated adenocarcinoma (measuring 12 cm in greatest dimension) Grade 2 out of 4, intestinal/tubular type. 2. The gastric tumor invades through the entire wall of the greater curvature and into the wall/submucosa of the adjacent transverse colon. 3. Serosal and mucosal margins are negative for tumor involvement. 4. There is no evidence for metastatic tumor in the perigastric and pericolic lymph nodes (zero out of 13 lymph nodes examined). Comment: Most of the 12 cm tumor appears to be localized to the body of stomach , with only a 2 cm area of transmural tumor extension that invades through the muscular wall of stomach and into the wall and submucosa of the transverse colon. This would be provisionally staged as a T4, N0 Gastric Adenocarcinoma using the TNM system. Follow-up studies are recommended for complete clinical staging. [facility]# [id number] [facility]OSPITALKendall
[2016-10-07] MEDS: INSULIN ASPART SLIDING SCALE 100 UNITS/ML UNIT SUBQ SCH ×2 (18:25→21:14)
[2016-10-07] MEDS: Levofloxacin 500mg/100mL 500 MG/100 ML BAG IV SCH (20:34)
[2016-10-07] MEDS: Meropenem 1 gm in NS 0.9% 100 ML IV SCH (22:00)
[2016-10-08] MEDS: Albuterol/Ipratropium Neb 3 ML AERS HHN SCH ×6 (03:19→22:55)
[2016-10-08] MEDS: Meropenem 1 gm in NS 0.9% 100 ML IV SCH ×3 (05:12→20:16)
[2016-10-08] MEDS: INSULIN ASPART SLIDING SCALE 100 UNITS/ML UNIT SUBQ SCH ×3 (06:54→20:19)
[2016-10-08] MEDS: ESOMEPRAZOLE 40 MG IVP SCH (06:55)
[2016-10-08 07:31] LABS: ALB/GLOB RATIO 0.8 (1.0-1.8); ALKALINE PHOSPHATASE 67 U/L (34-104); ANION GAP 6.5 (7.0-16.0); BILIRUBIN,TOTAL 0.7 mg/dL (0.3-1.0); BUN - UREA NITROGEN 6 mg/dL (7-25); CALCIUM SERUM 7.9 mg/dL (8.6-10.3); CHLORIDE 102 mEq/L (98-107); CREATININE - SERUM 0.4 mg/dL (0.7-1.3); GLUCOSE 106 mg/dL (70-105); MAGNESIUM 1.7 mg/dL (1.9-2.7); SGOT 11 U/L (13-39); SGPT/ALT 9 U/L (7-52); SODIUM SERUM 129 mEq/L (136-145)
[2016-10-08 07:55] LABS: HEMOGLOBIN 9.7 gm/dL (12.6-17.4); MEAN CELL VOLUME 73.5 fl (80-99); MEAN CORPUSCULAR HEMOGLOBIN 24.5 pg (27.0-31.0); MEAN CORPUSCULAR HGB CONC 33.3 pg (28.0-36.0); MEAN PLATELET VOLUME 7.5 fl; PLATELET COUNT 321 Th/cmm (150-400); RED BLOOD COUNT 3.95 Mil/cmm (3.80-5.80)
[2016-10-08] MEDS: Chlorhexidine Gluconate 0.12% 15mL Mouthwash MM SCH ×4 (08:00→21:26)
[2016-10-08 08:19] LABS: WHITE BLOOD COUNT 13.6 Th/cmm (4.8-10.8)
[2016-10-08 08:21] LABS: POTASSIUM SERUM 2.5 mEq/L (3.5-5.1)
--- NOTE | 2016-10-08 08:34 | Diagnostic Imaging Report ---
Exam: Chest x-ray HISTORY: Shortness of breath. Findings: Frontal examination of chest was reviewed no prior studies available comparison. The study demonstrates healed fractures of right rib cage. The endotracheal tube and a left-sided PICC line satisfactory position. The NG tube passes stomach. Bony thorax is intact. There is evidence for mild congestion. Atelectatic changes in left base was small pleural thickening appreciated. IMPRESSION: 1. Mild congestion 2. Left basilar atelectasis, pleural thickening.
[2016-10-08] MEDS ORDERED: KCL 20mEq/100mL Premix 20 MEQ/100 ML PIGGYBACK IV ONE ×4 (08:47→13:28)
--- NOTE | 2016-10-08 08:53 | Diagnostic Imaging Report ---
Exam: Portable examination of chest HISTORY: PICC line placement. Findings: Portable upright examination of the chest at 2027 hours was reviewed no prior studies available comparison. The endotracheal tube is 2 cm above the neelam. Left-sided PICC line terminates in lower superior vena cava. NG tube passes stomach. There is evidence for left lower lobe pneumonia and effusion. Healed fractures of right rib cage appreciated. IMPRESSION: Left-sided PICC line in lower superior vena cava pullback 3 cm. Left lobe infiltrate and effusion follow-up examination recommended.
[2016-10-08 09:35] LABS: ANISOCYTOSIS 1+; BAND NEUTROPHILE 7 % (0-10); EOSINOPHIL 2 % (0-5); MICROCYTOSIS 2+; NEUTROPHILS 84 % (40-80); PLATELET ESTIMATE ADEQUATE (NORMAL); PLATELET MORPHOLOGY NORMAL (NORMAL); TOTAL CELLS COUNTED 100
[2016-10-08] MEDS ORDERED: Mag Sulfate 2gm/50mL Premix 2 GM/50 ML BAG IV ONE (13:06)
--- NOTE | 2016-10-08 14:35 | General Progress Note ---
Subjective - Review of Systems Service Date: 10/08/16 Events since last encounter: start TPN getting KCL LARA drainage serous minimal output per ostomy Objective - Results Result Diagrams: 10/08/16 06:00 10/08/16 06:00 Recent Labs: Laboratory Last Values WBC 13.6 Th/cmm (4.8-10.8) H 10/08/16 06:00 RBC 3.95 Mil/cmm (3.80-5.80) 10/08/16 06:00 Hgb 9.7 gm/dL (12.6-17.4) L 10/08/16 06:00 Hct 29.0 % (39.0-49.0) L 10/08/16 06:00 MCV 73.5 fl (80-99) L 10/08/16 06:00 MCH 24.5 pg (27.0-31.0) L 10/08/16 06:00 MCHC Differential 33.3 pg (28.0-36.0) 10/08/16 06:00 RDW 25.0 % (11.5-20.0) H 10/08/16 06:00 Plt Count 321 Th/cmm (150-400) 10/08/16 06:00 MPV 7.5 fl 10/08/16 06:00 Neutrophils % 64.3 % (40.0-80.0) 10/05/16 04:35 Band Neutrophils % 7 % (0-10) 10/08/16 06:00 Lymphocytes % 16.0 % (20.0-50.0) L 10/05/16 04:35 Monocytes % 9.8 % (2.0-10.0) 10/05/16 04:35 Eosinophils % 5.2 % (0.0-5.0) H 10/05/16 04:35 Basophils % 4.7 % (0.0-2.0) H 10/05/16 04:35 Neutrophils (Manual) 84 % (40-80) H 10/08/16 06:00 Lymphocytes 5 % (20-50) L 10/08/16 06:00 Monocytes 1 % (2-10) L 10/08/16 06:00 Eosinophils 2 % (0-5) 10/08/16 06:00 Basophils 0 % (0-3) 10/05/16 17:39 Atypical Lymphocytes 1 % 08/19/17 06:00 Platelet Estimate ADEQUATE (NORMAL) 10/08/16 06:00 Platelet Morphology NORMAL (NORMAL) 10/08/16 06:00 Polychromasia 2+ 09/28/16 14:41 Poikilocytosis 1+ 10/01/16 06:30 Anisocytosis 1+ 10/08/16 06:00 Microcytosis 2+ 10/08/16 06:00 RBC Morph Micro Appear ABNORMAL (NORMAL) 10/08/16 06:00 PT 11.8 SECONDS (9.5-11.5) H 10/05/16 04:55 INR 1.12 (0.5-1.4) 10/05/16 04:55 PTT (Actin FS) 27.9 SECONDS (26.0-38.0) 10/05/16 04:55 Specimen Source Arterial 10/07/16 13:20 Sample Site Left Radial 10/07/16 13:20 pH 7.48 (7.35-7.45) H 10/07/16 13:20 pCO2 32.0 mmHg (35.0-45.0) L 10/07/16 13:20 pO2 263.0 mmHg (80.0-100.0) H 10/07/16 13:20 HCO3 25.7 mEq/L (20.0-26.0) 10/07/16 13:20 Base Excess 0.9 mEq/L (-3.0-3.0) 10/07/16 13:20 O2 Saturation 100.0 % (92.0-100.0) 10/07/16 13:20 Gianfranco Test PASS 10/07/16 13:20 Vent Rate 14 10/07/16 13:20 Inspired O2 100 10/07/16 13:20 Tidal Volume 500 10/07/16 13:20 PEEP 5 10/07/16 13:20 Pressure (ins/psv/peep) NA 10/06/16 09:37 Critical Value PW 10/07/16 13:20 Sodium 129 mEq/L (136-145) L 10/08/16 06:00 Potassium 2.5 mEq/L (3.5-5.1) L* 10/08/16 06:00 Chloride 102 mEq/L (98-107) 10/08/16 06:00 Carbon Dioxide 23.0 mEq/L (21.0-31.0) 10/08/16 06:00 Anion Gap 6.5 (7.0-16.0) L 10/08/16 06:00 BUN 6 mg/dL (7-25) L 10/08/16 06:00 Creatinine 0.4 mg/dL (0.7-1.3) L 10/08/16 06:00 Est GFR ( Amer) > 60.0 ml/min (>90) 10/08/16 06:00 Est GFR (Non-Af Amer) > 60.0 ml/min 10/08/16 06:00 BUN/Creatinine Ratio 15.0 10/08/16 06:00 Glucose 106 mg/dL (70-105) H 10/08/16 06:00 POC Glucose 98 MG/DL (70 - 105) 10/07/16 21:34 Whole Bld Lactic Acid 1.25 mmol/L (0.60-1.99) 09/28/16 14:41 Calcium 7.9 mg/dL (8.6-10.3) L 10/08/16 06:00 Magnesium 1.7 mg/dL (1.9-2.7) L 10/08/16 06:00 Iron 8 ug/dL (38-169) L 09/30/16 06:10 TIBC 161 ug/dL (250-450) L 09/30/16 06:10 Iron Saturation 5 % (15-55) L 09/30/16 06:10 Unsaturated IBC 153 ug/dL (111-343) 09/30/16 06:10 Ferritin 49 ng/mL (30-400) 09/30/16 06:10 Total Bilirubin 0.7 mg/dL (0.3-1.0) 10/08/16 06:00 AST 11 U/L (13-39) L 10/08/16 06:00 ALT 9 U/L (7-52) 10/08/16 06:00 Alkaline Phosphatase 67 U/L (34-104) 10/08/16 06:00 Lactate Dehydrogenase 132 U/L (140-271) L 09/30/16 06:10 Creatine Kinase 34 U/L (30-223) 09/28/16 14:41 Troponin I < 0.01 ng/mL (0.01-0.05) L 09/28/16 14:41 Total Protein 4.5 gm/dL (6.0-8.3) L 10/08/16 06:00 Albumin 2.0 gm/dL (4.2-5.5) L 10/08/16 06:00 Globulin 2.5 gm/dL 10/08/16 06:00 Albumin/Globulin Ratio 0.8 (1.0-1.8) L 10/08/16 06:00 Vitamin B12 978 pg/mL (211-946) H 09/30/16 06:10 Folic Acid 19.4 ng/mL (>3.0) 09/30/16 06:10 Urine Source [place]E [place] 09/29/16 16:30 Urine Color YELLOW 09/29/16 16:30 Urine Clarity SLIGHT CLOUDY (CLEAR) 09/29/16 16:30 Urine pH 6.5 (4.6 - 8.0) 09/29/16 16:30 Ur Specific [place] 1.015 (1.005-1.030) 09/29/16 16:30 Urine Protein TRACE mg/dL (NEGATIVE) 09/29/16 16:30 Urine Glucose (UA) NEGATIVE mg/dL (NEGATIVE) 09/29/16 16:30 Urine Ketones NEGATIVE mg/dL (NEGATIVE) 09/29/16 16:30 Urine Blood LARGE (NEGATIVE) H 09/29/16 16:30 Urine Nitrate NEGATIVE (NEGATIVE) 09/29/16 16:30 Urine Bilirubin NEGATIVE (NEGATIVE) 09/29/16 16:30 Urine Urobilinogen 0.2 E.U./dL (0.2 - 1.0) 09/29/16 16:30 Ur Leukocyte Esterase NEGATIVE (NEGATIVE) 09/29/16 16:30 Urine RBC 25-50 /hpf (0-5) H 09/29/16 16:30 Urine WBC 0-2 /hpf (0-5) 09/29/16 16:30 Ur Epithelial Cells RARE /lpf (FEW) 09/29/16 16:30 Amorphous Sediment FEW URATES (NONE SEEN) 09/28/16 17:00 Urine Bacteria FEW /hpf (NONE SEEN) 09/29/16 16:30 Urine Mucus FEW /lpf (FEW) 09/28/16 17:00 Stool Occult Blood NEGATIVE (NEGATIVE) 09/30/16 17:11 Vancomycin Trough 7.1 ug/mL (10-20) L 10/08/16 13:00 Helicobacter pylori Ab NEGATIVE (NEGATIVE) 09/30/16 14:00 Blood Type B POSITIVE 10/05/16 04:35 Antibody Screen NEGATIVE 10/05/16 04:35 Crossmatch See Detail 09/28/16 16:32 - Physical Exam Vitals and I&O: Vital Signs Temp 97.0 F 10/08/16 04:00 Pulse 77 10/08/16 13:09 Resp 24 10/08/16 13:25 BP 150/85 10/08/16 06:00 Pulse Ox 98 10/08/16 13:09 Intake & Output 10/07/16 10/08/16 10/08/16 18:59 06:59 18:59 Intake Total 1450 2850.833 536.667 Output Total 150 2380 Balance 1300 470.833 536.667 Weight (lbs) 56.699 kg 58.06 kg Intake: Intake, IV Amount 1450 2850.833 536.667 Dextrose 10% 1,000 ml @ 460.833 536.667 70 mls/hr IV .[id number] [facility] Rx#:[id number] Levofloxacin 500mg/100mL 100 500 mg In 100 ml @ 100 mls/hr IV Q24HR [facility] Rx#: [id number] Meropenem 1 gm In Sodium 200 Chloride 0.9% 100 ml @ 100 mls/hr IV Q8H [facility] Rx# :[id number] Potassium Chloride 10 meq 1840 In Dextrose 5% 1,000 ml @ 100 mls/hr IV .Q10H3M [facility] Rx#:[id number] Sodium Chloride 0.9% 1, 450 000 ml @ 120 mls/hr IV . Q8H20M [facility] Rx#:[id number] Vancomycin HCl 1 gm In 250 250 Sodium Chloride 0.9% 250 ml @ 165 mls/hr IV Q12H [facility] Rx#:[id number] metroNIDAZOLE 500mg/NS 200 100mL 500 mg In Premix Fluid 1 bag @ 100 mls/hr IV Q8H [facility] Rx#:[id number] Oral 0 0 Tube Feeding 0 0 TPN/PPN 0 0 Blood Product 0 0 Lipid 0 0 Albumin 0 0 Other 0 0 Output: Gastric Drainage 0 250 Drainage 370 Left Lower Abdomen 300 colostomy 20 right ileostomy 50 Urine 150 1525 Stool 0 0 Urine/Stool Mix 0 0 Emesis 0 0 Hemodialysis 0 0 Other 0 235 Other: # Voids 1 1 # Bowel Movements 0 0 Stool Characteristics Liquid Liquid Active Medications: Current Medications Acetaminophen (Tylenol) 650 mg PO Q6HR PRN PRN Reason: TEMP 100.0 AND ABOVE Stop: 11/27/16 20:42 Last Admin: 09/29/16 15:58 Dose: 650 mg Albuterol/Ipratropium (Duoneb Neb) 3 ml HHN Q4HRT [facility] Stop: 12/05/16 18:59 Last Admin: 10/08/16 11:15 Dose: 3 ml Chlorhexidine Gluconate (Peridex) 15 ml MM 0800,1999 [facility] Stop: 12/04/16 19:59 Last Admin: 10/07/16 20:34 Dose: 15 ml Chlorhexidine Gluconate (Peridex) 15 ml MM 0800,1999 [facility] Stop: 12/06/16 19:59 Last Admin: 10/07/16 20:44 Dose: Not Given Hydralazine HCl (Apresoline 20 Mg/Ml) 10 mg IV Q4H PRN PRN Reason: SBP>160 Stop: 12/06/16 08:40 Hydromorphone HCl (Dilaudid) 1 mg IVP Q4HR PRN PRN Reason: Pain (Mild) Stop: 12/04/16 10:25 Last Admin: 10/07/16 08:12 Dose: 1 mg Levofloxacin (Levaquin Pb) 500 mg in 100 mls @ 100 mls/hr IV Q24HR [facility] Stop: 11/28/16 20:59 Last Infusion: 10/07/16 21:34 Dose: Infused Vancomycin HCl 1 gm/ Sodium (Chloride) 250 mls @ 165 mls/hr IV Q12H [facility] Stop: 12/05/16 13:59 Last Infusion: 10/08/16 03:31 Dose: Infused Norepinephrine Bitartrate 4 mg (/ Dextrose) 254 mls @ 0 mls/hr IV TITR PRN; Protocol; Titrate PRN Reason: BP MAINTENANCE (PER PROTOCOL) Stop: 12/05/16 20:20 Potassium Chloride 10 meq/ (Dextrose) 1,005 mls @ 100 mls/hr IV .Q10H3M [facility] Stop: 12/06/16 10:29 Last Infusion: 10/08/16 06:00 Dose: 100 mls/hr Dextrose (Dextrose 10%) 1,000 mls @ 70 mls/hr IV .[id number] [facility] Stop: 10/08/16 16:00 Last Infusion: 10/08/16 13:40 Dose: 70 mls/hr Meropenem 1 gm/ Sodium (Chloride) 100 mls @ 100 mls/hr IV Q8H [facility] Stop: 12/06/16 20:59 Last Infusion: 10/08/16 06:12 Dose: Infused Multivitamins/Minerals 10 ml/ (Amino Acids) 1,200 mls @ 50 mls/hr IV .Q24H [facility] Stop: 12/07/16 15:59 Magnesium Sulfate (Magnesium Sulfate Premix) 2 gm in 50 mls @ 25 mls/hr IV X1 ONE Stop: 10/08/16 15:05 Potassium Chloride (Potassium Chloride) 20 meq in 100 mls @ 50 mls/hr IV X1 ONE Stop: 10/08/16 15:27 Insulin Aspart (Novolog Insulin Sliding Scale) 0 units SUBQ ACHS [facility] PRN Reason: Protocol Stop: 12/06/16 16:29 Last Admin: 10/08/16 12:37 Dose: Not Given Miscellaneous (Misc Injection) 1 vial IVP QDAC [facility] Stop: 11/30/16 09:59 Last Admin: 10/08/16 06:55 Dose: 1 vial Miscellaneous (Vancomycin Iv Per Pharmacy) 1 [facility] PRN [facility] Stop: 12/05/16 12:59 Miscellaneous (Tpn Per Pharmacy) 1 [facility] PRN PRN PRN Reason: PROTOCOL Stop: 12/06/16 10:56 Miscellaneous (Pharmacy To Dose) 1 [facility] PRN [facility] Stop: 12/06/16 20:29 Ondansetron HCl (Zofran) 4 mg IV UD PRN PRN Reason: Nausea / Vomiting Stop: 12/04/16 09:25 Pantoprazole Sodium (Protonix) 40 mg IVP Q12HR [facility] Stop: 12/06/16 10:59 Last Admin: 10/08/16 10:16 Dose: 40 mg General: Alert, Other (Eyes open non verbal) HEENT: Atraumatic Neck: Supple Cardiovascular: Regular rate, Other (Tachicardic) Lungs: Other (Rude respiration) Abdomen: Bowel sounds, Soft, Other (Cover with chava) Extremities: Other (No edema) Neurological: Other (Non ambulatory) Skin: Other (Warm and dry) Psych/Mental Status: Other (Awake, eyes open, non verbal) - Procedures Procedures: Procedures Procedure Code Date BLOOD TRANSFUSION SERVICE 39446 09/28/16 BYPASS ILEUM TO CUTANEOUS, OPEN APPROACH [id number] 09/28/16 BYPASS STOMACH TO JEJUNUM, OPEN APPROACH [id number] 09/28/16 EGD BIOPSY SINGLE/MULTIPLE 31451 09/28/16 EXCISION OF STOMACH, ENDO, DIAGN [id number] 09/28/16 EXCISION OF STOMACH, OPEN APPROACH [id number] 09/28/16 ILEOSTOMY/JEJUNOSTOMY 41116 09/28/16 REMOVAL OF STOMACH PARTIAL 35793 09/28/16 TRANSFUSE NONAUT RED BLOOD CELLS IN PERIPH VEIN, PERC [id number] 09/28/16 Nutritional Asmnt/Malnutr-PDOC - Dietary Evaluation Malnutrition Findings (Please click <Entered> for more info): Nutritional Asmnt/Malnutrition Start: 09/29/16 16: 06 Text: Status: Complete Freq: Document 09/29/16 19:24 [facility] (Rec: 09/29/16 19:32 [facility] [id number]) Nutritional Asmnt/Malnutrition Patient General Information Nutritional Screening High Risk Screening Diagnosis Acute anemia, dehydration, clinical pneumonia Pertinent Medical Hx/Surgical Hx CHF, HTN, dementia, old CVA, muscle atrophy Subjective Information Pt is a 66-year-old male from [facility]) admitted with chief complaint of fever. Pt is nonverbal and a poor historian. Pt was laying flat in bed during time of visit. Pt appears well nourished with no signs of muscle or fat depletion. Current Diet Order/ Nutrition Support NPO Patient / S.O Can't verbalize diet edu Pertinent Medications NaCl 0.9% Pertinent Labs (09/29) Na 126L (improving), Albumin 2.2L Nutritional Hx/Data Height 1.52 m Height (Calculated Centimeters) 152.4 Current Weight (lbs) 62.596 kg Weight (Calculated Kilograms) 62.6 Weight (Calculated Grams) 32434.7 [place] Body Weight 106 % [place] Body Weight 130 Weight Status Overweight GI Symptoms GI Symptoms Constipation Food Allergies No Cultural/Ethnic/[employer]ist Belief No cultural or yarsani preferences noted. Per chart, at [facility], pt received 8 oz prune juice at dinner, no spicy foods, may soak crackers, bread, and cookie with milk. Clear liquid diet every Monday at 1300. Usual diet at home Medium ground diet, Ensure BID Skin Integrity/Comment: Vinod Cardenas, improved to 15. Skin intact. Estimated Nutritional Goals BEE in Kcals: Using Current wt Calories/Kcals/Kg Based on current wt 62.7 kg for wt maintenance Kcals Calculated 1568 kcals/day Protein: Using Current wt Protein g/kg: Based on current wt 62.7 kg for wt maintenance Protein Calculated 63-75 gm/day (1-1.2 gm/kg) Fluid: ml Per MD/DO due dehydration Nutritional Problem 1. Problem Problem Inadequate energy/protein intake related to Etiology pending diagnostic procedures as evidenced by Signs/Symptoms: current NPO status. Malnutrition Alert Protein-Calorie Malnutrition N/A Is there a minimum of two criteria No selected? Query Text:Check all the applicable criteria. A minimum of two criteria are recommended for diagnosis of either severe or non-severe malnutrition. Malnutrition Related to Morbid Obesity Malnutrition related to morbid obesity No Intervention/Recommendation Comments 1. When medically appropriate, recommend mechanical soft ground diet with Boost BID. FNS to provide prune juice with dinner, to honor prior preferences. Expected Outcomes/Goals Expected Outcomes/Goals Have pt meet at least 75% of estimated nutritional needs. Physician Parameters for PEM Normal Weight % 90% - 110% (Normal) Serum Albumin (g/dl) <2.4 (Severe)
[2016-10-08] MEDS ORDERED: DEXT 10% IV SCH (16:00)
[2016-10-08] MEDS ORDERED: AMINO ACIDS IV SCH (16:00)
[2016-10-08] MEDS ORDERED: MULTIVITAMIN IV SCH (16:00)
[2016-10-08] MEDS: Levofloxacin 500mg/100mL 500 MG/100 ML BAG IV SCH (20:16)
[2016-10-09] MEDS: Albuterol/Ipratropium Neb 3 ML AERS HHN SCH ×6 (03:25→23:06)
[2016-10-09] MEDS: Meropenem 1 gm in NS 0.9% 100 ML IV SCH ×3 (05:18→21:00)
[2016-10-09 06:11] LABS: ALB/GLOB RATIO 0.8 (1.0-1.8); ALKALINE PHOSPHATASE 67 U/L (34-104); ANION GAP 7.8 (7.0-16.0); BILIRUBIN,TOTAL 0.7 mg/dL (0.3-1.0); BUN - UREA NITROGEN 5 mg/dL (7-25); BUN/CREATININE RATIO 12.5; CALCIUM SERUM 7.5 mg/dL (8.6-10.3); CARBON DIOXIDE 23.3 mEq/L (21.0-31.0); CHLORIDE 100 mEq/L (98-107); CREATININE - SERUM 0.4 mg/dL (0.7-1.3); GLUCOSE 158 mg/dL (70-105); PHOSPHOROUS 2.7 mg/dL (2.5-5.0); POTASSIUM SERUM 3.1 mEq/L (3.5-5.1); SGOT 8 U/L (13-39); SGPT/ALT 9 U/L (7-52); SODIUM SERUM 128 mEq/L (136-145)
[2016-10-09] MEDS: INSULIN ASPART SLIDING SCALE 100 UNITS/ML UNIT SUBQ SCH ×5 (06:35→21:00)
--- NOTE | 2016-10-09 08:56 | General Progress Note ---
Subjective - Review of Systems Service Date: 10/09/16 Events since last encounter: labs noted NGT 400 cc urine output good still no vent LARA minimal incision is clean ileostomy 40 cc Objective - Results Result Diagrams: 10/08/16 06:00 10/09/16 05:30 Recent Labs: Laboratory Last Values WBC 13.6 Th/cmm (4.8-10.8) H 10/08/16 06:00 RBC 3.95 Mil/cmm (3.80-5.80) 10/08/16 06:00 Hgb 9.7 gm/dL (12.6-17.4) L 10/08/16 06:00 Hct 29.0 % (39.0-49.0) L 10/08/16 06:00 MCV 73.5 fl (80-99) L 10/08/16 06:00 MCH 24.5 pg (27.0-31.0) L 10/08/16 06:00 MCHC Differential 33.3 pg (28.0-36.0) 10/08/16 06:00 RDW 25.0 % (11.5-20.0) H 10/08/16 06:00 Plt Count 321 Th/cmm (150-400) 10/08/16 06:00 MPV 7.5 fl 10/08/16 06:00 Neutrophils % 64.3 % (40.0-80.0) 10/05/16 04:35 Band Neutrophils % 7 % (0-10) 10/08/16 06:00 Lymphocytes % 16.0 % (20.0-50.0) L 10/05/16 04:35 Monocytes % 9.8 % (2.0-10.0) 10/05/16 04:35 Eosinophils % 5.2 % (0.0-5.0) H 10/05/16 04:35 Basophils % 4.7 % (0.0-2.0) H 10/05/16 04:35 Neutrophils (Manual) 84 % (40-80) H 10/08/16 06:00 Lymphocytes 5 % (20-50) L 10/08/16 06:00 Monocytes 1 % (2-10) L 10/08/16 06:00 Eosinophils 2 % (0-5) 10/08/16 06:00 Basophils 0 % (0-3) 10/05/16 17:39 Atypical Lymphocytes 1 % 10/08/16 06:00 Platelet Estimate ADEQUATE (NORMAL) 10/08/16 06:00 Platelet Morphology NORMAL (NORMAL) 10/08/16 06:00 Polychromasia 2+ 09/28/16 14:41 Poikilocytosis 1+ 10/01/16 06:30 Anisocytosis 1+ 10/08/16 06:00 Microcytosis 2+ 10/08/16 06:00 RBC Morph Micro Appear ABNORMAL (NORMAL) 10/08/16 06:00 PT 11.8 SECONDS (9.5-11.5) H 10/05/16 04:55 INR 1.12 (0.5-1.4) 10/05/16 04:55 PTT (Actin FS) 27.9 SECONDS (26.0-38.0) 10/05/16 04:55 Specimen Source Arterial 10/07/16 13:20 Sample Site Left Radial 10/07/16 13:20 pH 7.48 (7.35-7.45) H 10/07/16 13:20 pCO2 32.0 mmHg (35.0-45.0) L 10/07/16 13:20 pO2 263.0 mmHg (80.0-100.0) H 10/07/16 13:20 HCO3 25.7 mEq/L (20.0-26.0) 10/07/16 13:20 Base Excess 0.9 mEq/L (-3.0-3.0) 10/07/16 13:20 O2 Saturation 100.0 % (92.0-100.0) 10/07/16 13:20 Gianfranco Test PASS 10/07/16 13:20 Vent Rate 14 10/07/16 13:20 Inspired O2 100 10/07/16 13:20 Tidal Volume 500 10/07/16 13:20 PEEP 5 10/07/16 13:20 Pressure (ins/psv/peep) NA 10/06/16 09:37 Critical Value PW 10/07/16 13:20 Sodium 128 mEq/L (136-145) L 10/09/16 05:30 Potassium 3.1 mEq/L (3.5-5.1) L 10/09/16 05:30 Chloride 100 mEq/L (98-107) 10/09/16 05:30 Carbon Dioxide 23.3 mEq/L (21.0-31.0) 10/09/16 05:30 Anion Gap 7.8 (7.0-16.0) 10/09/16 05:30 BUN 5 mg/dL (7-25) L 10/09/16 05:30 Creatinine 0.4 mg/dL (0.7-1.3) L 10/09/16 05:30 Est GFR ( Amer) > 60.0 ml/min (>90) 10/09/16 05:30 Est GFR (Non-Af Amer) > 60.0 ml/min 10/09/16 05:30 BUN/Creatinine Ratio 12.5 10/09/16 05:30 Glucose 158 mg/dL (70-105) H 10/09/16 05:30 POC Glucose 154 MG/DL (70 - 105) H 10/09/16 05:35 Whole Bld Lactic Acid 1.25 mmol/L (0.60-1.99) 09/28/16 14:41 Calcium 7.5 mg/dL (8.6-10.3) L 10/09/16 05:30 Phosphorus 2.7 mg/dL (2.5-5.0) 10/09/16 05:30 Magnesium 2.0 mg/dL (1.9-2.7) 10/09/16 05:30 Iron 8 ug/dL (38-169) L 09/30/16 06:10 TIBC 161 ug/dL (250-450) L 09/30/16 06:10 Iron Saturation 5 % (15-55) L 09/30/16 06:10 Unsaturated IBC 153 ug/dL (111-343) 09/30/16 06:10 Ferritin 49 ng/mL (30-400) 09/30/16 06:10 Total Bilirubin 0.7 mg/dL (0.3-1.0) 10/09/16 05:30 AST 8 U/L (13-39) L 10/09/16 05:30 ALT 9 U/L (7-52) 10/09/16 05:30 Alkaline Phosphatase 67 U/L (34-104) 10/09/16 05:30 Lactate Dehydrogenase 132 U/L (140-271) L 09/30/16 06:10 Creatine Kinase 34 U/L (30-223) 09/28/16 14:41 Troponin I < 0.01 ng/mL (0.01-0.05) L 09/28/16 14:41 Total Protein 4.4 gm/dL (6.0-8.3) L 10/09/16 05:30 Albumin 1.9 gm/dL (4.2-5.5) L 10/09/16 05:30 Globulin 2.5 gm/dL 10/09/16 05:30 Albumin/Globulin Ratio 0.8 (1.0-1.8) L 10/09/16 05:30 Vitamin B12 978 pg/mL (211-946) H 09/30/16 06:10 Folic Acid 19.4 ng/mL (>3.0) 09/30/16 06:10 Urine Source [place] 09/29/16 16:30 Urine Color YELLOW 09/29/16 16:30 Urine Clarity SLIGHT CLOUDY (CLEAR) 09/29/16 16:30 Urine pH 6.5 (4.6 - 8.0) 09/29/16 16:30 Ur Specific [place] 1.015 (1.005-1.030) 09/29/16 16:30 Urine Protein TRACE mg/dL (NEGATIVE) 09/29/16 16:30 Urine Glucose (UA) NEGATIVE mg/dL (NEGATIVE) 09/29/16 16:30 Urine Ketones NEGATIVE mg/dL (NEGATIVE) 09/29/16 16:30 Urine Blood LARGE (NEGATIVE) H 09/29/16 16:30 Urine Nitrate NEGATIVE (NEGATIVE) 09/29/16 16:30 Urine Bilirubin NEGATIVE (NEGATIVE) 09/29/16 16:30 Urine Urobilinogen 0.2 E.U./dL (0.2 - 1.0) 09/29/16 16:30 Ur Leukocyte Esterase NEGATIVE (NEGATIVE) 09/29/16 16:30 Urine RBC 25-50 /hpf (0-5) H 09/29/16 16:30 Urine WBC 0-2 /hpf (0-5) 09/29/16 16:30 Ur Epithelial Cells RARE /lpf (FEW) 09/29/16 16:30 Amorphous Sediment FEW URATES (NONE SEEN) 09/28/16 17:00 Urine Bacteria FEW /hpf (NONE SEEN) 09/29/16 16:30 Urine Mucus FEW /lpf (FEW) 09/28/16 17:00 Stool Occult Blood NEGATIVE (NEGATIVE) 09/30/16 17:11 Vancomycin Trough 7.1 ug/mL (10-20) L 10/08/16 13:00 Helicobacter pylori Ab NEGATIVE (NEGATIVE) 09/30/16 14:00 Blood Type B POSITIVE 10/05/16 04:35 Antibody Screen NEGATIVE 10/05/16 04:35 Crossmatch See Detail 09/28/16 16:32 - Physical Exam Vitals and I&O: Vital Signs Temp 97.2 F 10/09/16 04:00 Pulse 86 10/09/16 07:19 Resp 14 10/09/16 07:00 BP 122/71 10/09/16 07:00 Pulse Ox 100 10/09/16 07:19 Intake & Output 10/08/16 10/09/16 10/09/16 18:59 06:59 18:59 Intake Total 706.667 551.667 Output Total 1925 650 Balance -1218.333 -98.333 Weight (lbs) 58.06 kg 58.06 kg Intake: Intake, IV Amount 706.667 551.667 Dextrose 10% 1,000 ml @ 536.667 70 mls/hr IV .[id number] [facility] Rx#:[id number] Levofloxacin 500mg/100mL 100 500 mg In 100 ml @ 100 mls/hr IV Q24HR [facility] Rx#: [id number] Meropenem 1 gm In Sodium 201.667 Chloride 0.9% 100 ml @ 100 mls/hr IV Q8H [facility] Rx# :[id number] Potassium Chloride 10 meq 170 In Dextrose 5% 1,000 ml @ 100 mls/hr IV .Q10H3M [facility] Rx#:[id number] Vancomycin HCl 1 gm In 250 Sodium Chloride 0.9% 250 ml @ 165 mls/hr IV Q12H [facility] Rx#:[id number] Output: Drainage 100 Left Lower Abdomen 60 right ileostomy 40 Urine 1925 Other 550 Other: Stool Characteristics Liquid Liquid Active Medications: Current Medications Acetaminophen (Tylenol) 650 mg PO Q6HR PRN PRN Reason: TEMP 100.0 AND ABOVE Stop: 11/27/16 20:42 Last Admin: 09/29/16 15:58 Dose: 650 mg Albuterol/Ipratropium (Duoneb Neb) 3 ml HHN Q4HRT [facility] Stop: 12/05/16 18:59 Last Admin: 10/09/16 07:19 Dose: 3 ml Chlorhexidine Gluconate (Peridex) 15 ml MM 0800,1999 [facility] Stop: 12/04/16 19:59 Last Admin: 10/08/16 20:28 Dose: 15 ml Chlorhexidine Gluconate (Peridex) 15 ml MM 0800,1999 [facility] Stop: 12/06/16 19:59 Last Admin: 10/08/16 21:26 Dose: 15 ml Hydralazine HCl (Apresoline 20 Mg/Ml) 10 mg IV Q4H PRN PRN Reason: SBP>160 Stop: 12/06/16 08:40 Hydromorphone HCl (Dilaudid) 1 mg IVP Q4HR PRN PRN Reason: Pain (Mild) Stop: 12/04/16 10:25 Last Admin: 10/07/16 08:12 Dose: 1 mg Levofloxacin (Levaquin Pb) 500 mg in 100 mls @ 100 mls/hr IV Q24HR [facility] Stop: 11/28/16 20:59 Last Infusion: 10/08/16 21:16 Dose: Infused Norepinephrine Bitartrate 4 mg (/ Dextrose) 254 mls @ 0 mls/hr IV TITR PRN; Protocol; Titrate PRN Reason: BP MAINTENANCE (PER PROTOCOL) Stop: 12/05/16 20:20 Potassium Chloride 10 meq/ (Dextrose) 1,005 mls @ 100 mls/hr IV .Q10H3M [facility] Stop: 12/06/16 10:29 Last Admin: 10/08/16 20:05 Dose: 100 mls/hr Meropenem 1 gm/ Sodium (Chloride) 100 mls @ 100 mls/hr IV Q8H [facility] Stop: 12/06/16 20:59 Last Infusion: 10/09/16 06:18 Dose: Infused Multivitamins/Minerals 10 ml/ (Amino Acids) 1,200 mls @ 50 mls/hr IV .Q24H [facility] Stop: 12/07/16 15:59 Last Admin: 10/08/16 17:18 Dose: 50 mls/hr Insulin Aspart (Novolog Insulin Sliding Scale) 0 units SUBQ ACHS [facility] PRN Reason: Protocol Stop: 12/06/16 16:29 Last Admin: 10/09/16 06:35 Dose: 2 units Miscellaneous (Misc Injection) 1 vial IVP QDAC [facility] Stop: 11/30/16 09:59 Last Admin: 10/08/16 06:55 Dose: 1 vial Miscellaneous (Vancomycin Iv Per Pharmacy) 1 ea MC PRN [facility] Stop: 12/05/16 12:59 Miscellaneous (Tpn Per Pharmacy) 1 ea PRN PRN PRN Reason: PROTOCOL Stop: 12/06/16 10:56 Miscellaneous (Pharmacy To Dose) 1 ea MC PRN [facility] Stop: 12/06/16 20:29 Ondansetron HCl (Zofran) 4 mg IV UD PRN PRN Reason: Nausea / Vomiting Stop: 12/04/16 09:25 Pantoprazole Sodium (Protonix) 40 mg IVP Q12HR [facility] Stop: 12/06/16 10:59 Last Admin: 10/08/16 20:14 Dose: 40 mg Vancomycin HCl (Vancomycin Oral) 1 mg PO Q12HR [facility] Stop: 12/08/16 08:59 General: Alert, Other (Eyes open non verbal) HEENT: Atraumatic Neck: Supple Cardiovascular: Regular rate, Other (Tachicardic) Lungs: Other (Rude respiration) Abdomen: Bowel sounds, Soft, Other (Cover with chava) Extremities: Other (No edema) Neurological: Other (Non ambulatory) Skin: Other (Warm and dry) Psych/Mental Status: Other (Awake, eyes open, non verbal) - Procedures Procedures: Procedures Procedure Code Date BLOOD TRANSFUSION SERVICE 53343 09/28/16 BYPASS ILEUM TO CUTANEOUS, OPEN APPROACH [id number] 09/28/16 BYPASS STOMACH TO JEJUNUM, OPEN APPROACH [id number] 09/28/16 EGD BIOPSY SINGLE/MULTIPLE 45510 09/28/16 EXCISION OF STOMACH, ENDO, DIAGN [id number] 09/28/16 EXCISION OF STOMACH, OPEN APPROACH [id number] 09/28/16 ILEOSTOMY/JEJUNOSTOMY 37671 09/28/16 REMOVAL OF STOMACH PARTIAL 35707 09/28/16 TRANSFUSE NONAUT RED BLOOD CELLS IN PERIPH VEIN, PERC [id number] 09/28/16 Nutritional Asmnt/Malnutr-PDOC - Dietary Evaluation Malnutrition Findings (Please click <Entered> for more info): Nutritional Asmnt/Malnutrition Start: 09/29/16 16: 06 Text: Status: Complete Freq: Document 09/29/16 19:24 [facility] (Rec: 09/29/16 19:32 [facility] [id number]) Nutritional Asmnt/Malnutrition Patient General Information Nutritional Screening High Risk Screening Diagnosis Acute anemia, dehydration, clinical pneumonia Pertinent Medical Hx/Surgical Hx CHF, HTN, dementia, old CVA, muscle atrophy Subjective Information Pt is a 66-year-old male from [facility]) admitted with chief complaint of fever. Pt is nonverbal and a poor historian. Pt was laying flat in bed during time of visit. Pt appears well nourished with no signs of muscle or fat depletion. Current Diet Order/ Nutrition Support NPO Patient / S.O Can't verbalize diet edu Pertinent Medications NaCl 0.9% Pertinent Labs (09/29) Na 126L (improving), Albumin 2.2L Nutritional Hx/Data Height 1.52 m Height (Calculated Centimeters) 152.4 Current Weight (lbs) 62.596 kg Weight (Calculated Kilograms) 62.6 Weight (Calculated Grams) 17746.7 [place] Body Weight 106 % [place] Body Weight 130 Weight Status Overweight GI Symptoms GI Symptoms Constipation Food Allergies No Cultural/Ethnic/Moravian Belief No cultural or jain preferences noted. Per chart, at [facility], pt received 8 oz prune juice at dinner, no spicy foods, may soak crackers, bread, and cookie with milk. Clear liquid diet every Monday at 1300. Usual diet at home Medium ground diet, Ensure BID Skin Integrity/Comment: Vinod 12, improved to 15. Skin intact. Estimated Nutritional Goals BEE in Kcals: Using Current wt Calories/Kcals/Kg Based on current wt 62.7 kg for wt maintenance Kcals Calculated 1568 kcals/day Protein: Using Current wt Protein g/kg: Based on current wt 62.7 kg for wt maintenance Protein Calculated 63-75 gm/day (1-1.2 gm/kg) Fluid: ml Per MD/DO due dehydration Nutritional Problem 1. Problem Problem Inadequate energy/protein intake related to Etiology pending diagnostic procedures as evidenced by Signs/Symptoms: current NPO status. Malnutrition Alert Protein-Calorie Malnutrition N/A Is there a minimum of two criteria No selected? Query Text:Check all the applicable criteria. A minimum of two criteria are recommended for diagnosis of either severe or non-severe malnutrition. Malnutrition Related to Morbid Obesity Malnutrition related to morbid obesity No Intervention/Recommendation Comments 1. When medically appropriate, recommend mechanical soft ground diet with Boost BID. FNS to provide prune juice with dinner, to honor prior preferences. Expected Outcomes/Goals Expected Outcomes/Goals Have pt meet at least 75% of estimated nutritional needs. Physician Parameters for PEM Normal Weight % 90% - 110% (Normal) Serum Albumin (g/dl) <2.4 (Severe)
[2016-10-09] MEDS ORDERED: Vancomycin HCL 250 mg /10mL UDC PO SCH (09:00)
[2016-10-09] MEDS: Chlorhexidine Gluconate 0.12% 15mL Mouthwash MM SCH ×4 (09:48→20:00)
[2016-10-09 12:02] LABS: % BASOPHILS 0.2 % (0.0-2.0); % EOSINOPHILS 4.6 % (0.0-5.0); % LYMPHOCYTES 8.5 % (20.0-50.0); % MONOCYTES 2.4 % (2.0-10.0); % NEUTROPHILS 84.3 % (40.0-80.0); HEMATOCRIT 32.7 % (39.0-49.0); HEMOGLOBIN 10.6 gm/dL (12.6-17.4); MEAN CELL VOLUME 73.8 fl (80-99); MEAN CORPUSCULAR HEMOGLOBIN 23.9 pg (27.0-31.0); MEAN CORPUSCULAR HGB CONC 32.4 pg (28.0-36.0); MEAN PLATELET VOLUME 7.5 fl; NEUTROPHILE ABSOLUTE 12.8 Th/cmm (1.8-8.0); PLATELET COUNT 325 Th/cmm (150-400); RED BLOOD COUNT 4.44 Mil/cmm (3.80-5.80); WHITE BLOOD COUNT 15.2 Th/cmm (4.8-10.8)
--- NOTE | 2016-10-09 15:42 | Infectious Disease Prog Note ---
Infectious Disease Subjective - Review of Systems Service Date: 10/09/16 Subjective: cc gastric ca s/p surgery hpi- pt on iv bax ros no fver o/e vss chest claer abd wound ext pulse Infectious Disease Objective - Results Result Diagrams: 10/09/16 11:58 10/09/16 05:30 Recent Labs: Laboratory Last Values WBC 15.2 Th/cmm (4.8-10.8) H 10/09/16 11:58 RBC 4.44 Mil/cmm (3.80-5.80) 10/09/16 11:58 Hgb 10.6 gm/dL (12.6-17.4) L 10/09/16 11:58 Hct 32.7 % (39.0-49.0) L D 10/09/16 11:58 MCV 73.8 fl (80-99) L 10/09/16 11:58 MCH 23.9 pg (27.0-31.0) L 10/09/16 11:58 MCHC Differential 32.4 pg (28.0-36.0) 10/09/16 11:58 RDW 25.0 % (11.5-20.0) H 10/09/16 11:58 Plt Count 325 Th/cmm (150-400) 10/09/16 11:58 MPV 7.5 fl 10/09/16 11:58 Neutrophils % 84.3 % (40.0-80.0) H 10/09/16 11:58 Band Neutrophils % 7 % (0-10) 10/08/16 06:00 Lymphocytes % 8.5 % (20.0-50.0) L 10/09/16 11:58 Monocytes % 2.4 % (2.0-10.0) 10/09/16 11:58 Eosinophils % 4.6 % (0.0-5.0) 10/09/16 11:58 Basophils % 0.2 % (0.0-2.0) 10/09/16 11:58 Neutrophils (Manual) 84 % (40-80) H 10/08/16 06:00 Lymphocytes 5 % (20-50) L 10/08/16 06:00 Monocytes 1 % (2-10) L 10/08/16 06:00 Eosinophils 2 % (0-5) 10/08/16 06:00 Basophils 0 % (0-3) 10/05/16 17:39 Atypical Lymphocytes 1 % 10/08/16 06:00 Platelet Estimate ADEQUATE (NORMAL) 10/08/16 06:00 Platelet Morphology NORMAL (NORMAL) 10/08/16 06:00 Polychromasia 2+ 09/28/16 14:41 Poikilocytosis 1+ 10/01/16 06:30 Anisocytosis 1+ 10/08/16 06:00 Microcytosis 2+ 10/08/16 06:00 RBC Morph Micro Appear ABNORMAL (NORMAL) 10/08/16 06:00 PT 11.8 SECONDS (9.5-11.5) H 10/05/16 04:55 INR 1.12 (0.5-1.4) 10/05/16 04:55 PTT (Actin FS) 27.9 SECONDS (26.0-38.0) 10/05/16 04:55 Specimen Source Arterial 10/07/16 13:20 Sample Site Left Radial 10/07/16 13:20 pH 7.48 (7.35-7.45) H 10/07/16 13:20 pCO2 32.0 mmHg (35.0-45.0) L 10/07/16 13:20 pO2 263.0 mmHg (80.0-100.0) H 10/07/16 13:20 HCO3 25.7 mEq/L (20.0-26.0) 10/07/16 13:20 Base Excess 0.9 mEq/L (-3.0-3.0) 10/07/16 13:20 O2 Saturation 100.0 % (92.0-100.0) 10/07/16 13:20 Gianfranco Test PASS 10/07/16 13:20 Vent Rate 14 10/07/16 13:20 Inspired O2 100 10/07/16 13:20 Tidal Volume 500 10/07/16 13:20 PEEP 5 10/07/16 13:20 Pressure (ins/psv/peep) NA 10/06/16 09:37 Critical Value PW 10/07/16 13:20 Sodium 128 mEq/L (136-145) L 10/09/16 05:30 Potassium 3.1 mEq/L (3.5-5.1) L 10/09/16 05:30 Chloride 100 mEq/L (98-107) 10/09/16 05:30 Carbon Dioxide 23.3 mEq/L (21.0-31.0) 10/09/16 05:30 Anion Gap 7.8 (7.0-16.0) 10/09/16 05:30 BUN 5 mg/dL (7-25) L 10/09/16 05:30 Creatinine 0.4 mg/dL (0.7-1.3) L 10/09/16 05:30 Est GFR ( Amer) > 60.0 ml/min (>90) 10/09/16 05:30 Est GFR (Non-Af Amer) > 60.0 ml/min 10/09/16 05:30 BUN/Creatinine Ratio 12.5 10/09/16 05:30 Glucose 158 mg/dL (70-105) H 10/09/16 05:30 POC Glucose 155 MG/DL (70 - 105) H 10/09/16 12:43 Whole Bld Lactic Acid 1.25 mmol/L (0.60-1.99) 09/28/16 14:41 Calcium 7.5 mg/dL (8.6-10.3) L 10/09/16 05:30 Phosphorus 2.7 mg/dL (2.5-5.0) 10/09/16 05:30 Magnesium 2.0 mg/dL (1.9-2.7) 10/09/16 05:30 Iron 8 ug/dL (38-169) L 09/30/16 06:10 TIBC 161 ug/dL (250-450) L 09/30/16 06:10 Iron Saturation 5 % (15-55) L 09/30/16 06:10 Unsaturated IBC 153 ug/dL (111-343) 09/30/16 06:10 Ferritin 49 ng/mL (30-400) 09/30/16 06:10 Total Bilirubin 0.7 mg/dL (0.3-1.0) 10/09/16 05:30 AST 8 U/L (13-39) L 10/09/16 05:30 ALT 9 U/L (7-52) 10/09/16 05:30 Alkaline Phosphatase 67 U/L (34-104) 10/09/16 05:30 Ammonia 36 umol/L (16-53) 10/09/16 14:33 Lactate Dehydrogenase 132 U/L (140-271) L 09/30/16 06:10 Creatine Kinase 34 U/L (30-223) 09/28/16 14:41 Troponin I < 0.01 ng/mL (0.01-0.05) L 09/28/16 14:41 Total Protein 4.4 gm/dL (6.0-8.3) L 10/09/16 05:30 Albumin 1.9 gm/dL (4.2-5.5) L 10/09/16 05:30 Globulin 2.5 gm/dL 10/09/16 05:30 Albumin/Globulin Ratio 0.8 (1.0-1.8) L 10/09/16 05:30 Vitamin B12 978 pg/mL (211-946) H 09/30/16 06:10 Folic Acid 19.4 ng/mL (>3.0) 09/30/16 06:10 Urine Source [place] 09/29/16 16:30 Urine Color YELLOW 09/29/16 16:30 Urine Clarity SLIGHT CLOUDY (CLEAR) 09/29/16 16:30 Urine pH 6.5 (4.6 - 8.0) 09/29/16 16:30 Ur Specific [place] 1.015 (1.005-1.030) 09/29/16 16:30 Urine Protein TRACE mg/dL (NEGATIVE) 09/29/16 16:30 Urine Glucose (UA) NEGATIVE mg/dL (NEGATIVE) 09/29/16 16:30 Urine Ketones NEGATIVE mg/dL (NEGATIVE) 09/29/16 16:30 Urine Blood LARGE (NEGATIVE) H 09/29/16 16:30 Urine Nitrate NEGATIVE (NEGATIVE) 09/29/16 16:30 Urine Bilirubin NEGATIVE (NEGATIVE) 09/29/16 16:30 Urine Urobilinogen 0.2 E.U./dL (0.2 - 1.0) 09/29/16 16:30 Ur Leukocyte Esterase NEGATIVE (NEGATIVE) 09/29/16 16:30 Urine RBC 25-50 /hpf (0-5) H 09/29/16 16:30 Urine WBC 0-2 /hpf (0-5) 09/29/16 16:30 Ur Epithelial Cells RARE /lpf (FEW) 09/29/16 16:30 Amorphous Sediment FEW URATES (NONE SEEN) 09/28/16 17:00 Urine Bacteria FEW /hpf (NONE SEEN) 09/29/16 16:30 Urine Mucus FEW /lpf (FEW) 09/28/16 17:00 Stool Occult Blood NEGATIVE (NEGATIVE) 09/30/16 17:11 Vancomycin Trough 7.1 ug/mL (10-20) L 10/08/16 13:00 Helicobacter pylori Ab NEGATIVE (NEGATIVE) 09/30/16 14:00 Blood Type B POSITIVE 10/05/16 04:35 Antibody Screen NEGATIVE 10/05/16 04:35 Crossmatch See Detail 09/28/16 16:32 - Physical Exam Vitals and I&O: Vital Signs Temp 97.6 F 10/09/16 12:00 Pulse 86 10/09/16 15:16 Resp 20 10/09/16 14:53 BP 99/49 10/09/16 14:53 Pulse Ox 99 10/09/16 15:16 Intake & Output 10/08/16 10/09/16 10/09/16 18:59 06:59 18:59 Intake Total 348.925 8237.667 Output Total 1925 650 Balance -1218.333 906.667 Weight (lbs) 58.06 kg 58.06 kg Intake: Intake, IV Amount 859.391 9808.667 Dextrose 10% 1,000 ml @ 536.667 70 mls/hr IV .[id number] [facility] Rx#:[id number] Levofloxacin 500mg/100mL 100 500 mg In 100 ml @ 100 mls/hr IV Q24HR [facility] Rx#: [id number] Meropenem 1 gm In Sodium 201.667 Chloride 0.9% 100 ml @ 100 mls/hr IV Q8H [facility] Rx# :[id number] Potassium Chloride 10 meq 170 1005 In Dextrose 5% 1,000 ml @ 100 mls/hr IV .Q10H3M [facility] Rx#:[id number] Vancomycin HCl 1 gm In 250 Sodium Chloride 0.9% 250 ml @ 165 mls/hr IV Q12H [facility] Rx#:[id number] Output: Drainage 100 Left Lower Abdomen 60 right ileostomy 40 Urine 1925 Other 550 Other: Stool Characteristics Liquid Liquid Liquid Active Medications: Current Medications Acetaminophen (Tylenol) 650 mg PO Q6HR PRN PRN Reason: TEMP 100.0 AND ABOVE Stop: 11/27/16 20:42 Last Admin: 09/29/16 15:58 Dose: 650 mg Albuterol/Ipratropium (Duoneb Neb) 3 ml HHN Q4HRT [facility] Stop: 12/05/16 18:59 Last Admin: 10/09/16 15:16 Dose: 3 ml Chlorhexidine Gluconate (Peridex) 15 ml MM 0800,1999 [facility] Stop: 12/04/16 19:59 Last Admin: 10/09/16 09:48 Dose: 15 ml Chlorhexidine Gluconate (Peridex) 15 ml MM 0800,1999 [facility] Stop: 12/06/16 19:59 Last Admin: 10/09/16 09:49 Dose: Not Given Hydralazine HCl (Apresoline 20 Mg/Ml) 10 mg IV Q4H PRN PRN Reason: SBP>160 Stop: 12/06/16 08:40 Hydromorphone HCl (Dilaudid) 1 mg IVP Q4HR PRN PRN Reason: Pain (Mild) Stop: 12/04/16 10:25 Last Admin: 10/07/16 08:12 Dose: 1 mg Levofloxacin (Levaquin Pb) 500 mg in 100 mls @ 100 mls/hr IV Q24HR [facility] Stop: 11/28/16 20:59 Last Infusion: 10/08/16 21:16 Dose: Infused Norepinephrine Bitartrate 4 mg (/ Dextrose) 254 mls @ 0 mls/hr IV TITR PRN; Protocol; Titrate PRN Reason: BP MAINTENANCE (PER PROTOCOL) Stop: 12/05/16 20:20 Potassium Chloride 10 meq/ (Dextrose) 1,005 mls @ 100 mls/hr IV .Q10H3M [facility] Stop: 12/06/16 10:29 Last Admin: 10/09/16 09:47 Dose: 100 mls/hr Meropenem 1 gm/ Sodium (Chloride) 100 mls @ 100 mls/hr IV Q8H [facility] Stop: 12/06/16 20:59 Last Admin: 10/09/16 13:12 Dose: 100 mls/hr Multivitamins/Minerals 10 ml/ (Amino Acids) 1,200 mls @ 50 mls/hr IV .Q24H [facility] Stop: 10/09/16 15:59 Last Admin: 10/08/16 17:18 Dose: 50 mls/hr Vancomycin HCl 1 gm/ Sodium (Chloride) 250 mls @ 165 mls/hr IV Q12HR [facility] Stop: 12/08/16 10:14 Last Admin: 10/09/16 10:10 Dose: 165 mls/hr Multivitamins/Minerals 10 ml/Amino Acids/ Fat Emulsion Intravenous 1,200 mls @ 50 mls/hr IV .Q24H [facility] Stop: 12/08/16 15:59 Insulin Aspart (Novolog Insulin Sliding Scale) 0 units SUBQ ACHS [facility] PRN Reason: Protocol Stop: 12/06/16 16:29 Last Admin: 10/09/16 12:55 Dose: 2 units Miscellaneous (Vancomycin Iv Per Pharmacy) 1 ea PRN [facility] Stop: 12/05/16 12:59 Miscellaneous (Tpn Per Pharmacy) 1 ea PRN PRN PRN Reason: PROTOCOL Stop: 12/06/16 10:56 Miscellaneous (Pharmacy To Dose) 1 ea PRN [facility] Stop: 12/06/16 20:29 Ondansetron HCl (Zofran) 4 mg IV UD PRN PRN Reason: Nausea / Vomiting Stop: 12/04/16 09:25 Pantoprazole Sodium (Protonix) 40 mg IVP Q12HR [facility] Stop: 12/06/16 10:59 Last Admin: 10/09/16 09:48 Dose: 40 mg - Procedures Procedures: Procedures Procedure Code Date BLOOD TRANSFUSION SERVICE 74473 09/28/16 BYPASS ILEUM TO CUTANEOUS, OPEN APPROACH [id number] 09/28/16 BYPASS STOMACH TO JEJUNUM, OPEN APPROACH [id number] 09/28/16 EGD BIOPSY SINGLE/MULTIPLE 37116 09/28/16 EXCISION OF STOMACH, ENDO, DIAGN [id number] 09/28/16 EXCISION OF STOMACH, OPEN APPROACH [id number] 09/28/16 ILEOSTOMY/JEJUNOSTOMY 85232 09/28/16 REMOVAL OF STOMACH PARTIAL 40692 09/28/16 TRANSFUSE NONAUT RED BLOOD CELLS IN PERIPH VEIN, PERC 16132A2 09/28/16 Nutritional Asmnt/Malnutr-PDOC - Dietary Evaluation Malnutrition Findings (Please click <Entered> for more info): Nutritional Asmnt/Malnutrition Start: 09/29/16 16: 06 Text: Status: Complete Freq: Document 09/29/16 19:24 [facility] (Rec: 09/29/16 19:32 [facility] [id number]) Nutritional Asmnt/Malnutrition Patient General Information Nutritional Screening High Risk Screening Diagnosis Acute anemia, dehydration, clinical pneumonia Pertinent Medical Hx/Surgical Hx CHF, HTN, dementia, old CVA, muscle atrophy Subjective Information Pt is a 66-year-old male from [facility] admitted with chief complaint of fever. Pt is nonverbal and a poor historian. Pt was laying flat in bed during time of visit. Pt appears well nourished with no signs of muscle or fat depletion. Current Diet Order/ Nutrition Support NPO Patient / S.O Can't verbalize diet edu Pertinent Medications NaCl 0.9% Pertinent Labs (09/29) Na 126L (improving), Albumin 2.2L Nutritional Hx/Data Height 1.52 m Height (Calculated Centimeters) 152.4 Current Weight (lbs) 62.596 kg Weight (Calculated Kilograms) 62.6 Weight (Calculated Grams) 96981.7 [place] Body Weight 106 % [place] Body Weight 130 Weight Status Overweight GI Symptoms GI Symptoms Constipation Food Allergies No Cultural/Ethnic/Taoist Belief No cultural or rastafari preferences noted. Per chart, at [facility], pt received 8 oz prune juice at dinner, no spicy foods, may soak crackers, bread, and cookie with milk. Clear liquid diet every Monday at 1300. Usual diet at home Medium ground diet, Ensure BID Skin Integrity/Comment: Vinod Cardenas, improved to 15. Skin intact. Estimated Nutritional Goals BEE in Kcals: Using Current wt Calories/Kcals/Kg Based on current wt 62.7 kg for wt maintenance Kcals Calculated 1568 kcals/day Protein: Using Current wt Protein g/kg: Based on current wt 62.7 kg for wt maintenance Protein Calculated 63-75 gm/day (1-1.2 gm/kg) Fluid: ml Per MD/DO due dehydration Nutritional Problem 1. Problem Problem Inadequate energy/protein intake related to Etiology pending diagnostic procedures as evidenced by Signs/Symptoms: current NPO status. Malnutrition Alert Protein-Calorie Malnutrition N/A Is there a minimum of two criteria No selected? Query Text:Check all the applicable criteria. A minimum of two criteria are recommended for diagnosis of either severe or non-severe malnutrition. Malnutrition Related to Morbid Obesity Malnutrition related to morbid obesity No Intervention/Recommendation Comments 1. When medically appropriate, recommend mechanical soft ground diet with Boost BID. FNS to provide prune juice with dinner, to honor prior preferences. Expected Outcomes/Goals Expected Outcomes/Goals Have pt meet at least 75% of estimated nutritional needs. Physician Parameters for PEM Normal Weight % 90% - 110% (Normal) Serum Albumin (g/dl) <2.4 (Severe)
[2016-10-09] MEDS ORDERED: INTRALIPIDS IV SCH (16:00)
[2016-10-09] MEDS ORDERED: AMINO ACIDS IV SCH (16:00)
[2016-10-09] MEDS ORDERED: DEXT 10% IV SCH (16:00)
[2016-10-09] MEDS ORDERED: MULTIVITAMIN IV SCH (16:00)
[2016-10-09] MEDS ORDERED: Probiotic Screen MC PRN (16:21)
[2016-10-09] MEDS: HYDROmorphone 1 mg/mL 1mL Syr IVP PRN (16:54)
[2016-10-09] MEDS: Levofloxacin 500mg/100mL 500 MG/100 ML BAG IV SCH (21:00)
[2016-10-10] MEDS: Albuterol/Ipratropium Neb 3 ML AERS HHN SCH ×5 (02:27→18:59)
[2016-10-10] MEDS: Meropenem 1 gm in NS 0.9% 100 ML IV SCH ×2 (05:00→14:46)
[2016-10-10 05:10] LABS: HEMATOCRIT 31.1 % (39.0-49.0); HEMOGLOBIN 10.1 gm/dL (12.6-17.4)
[2016-10-10 05:18] LABS: % BASOPHILS 0.6 % (0.0-2.0); % EOSINOPHILS 4.1 % (0.0-5.0); % LYMPHOCYTES 8.6 % (20.0-50.0); % MONOCYTES 7.3 % (2.0-10.0); % NEUTROPHILS 79.4 % (40.0-80.0); MEAN CORPUSCULAR HEMOGLOBIN 23.8 pg (27.0-31.0); MEAN CORPUSCULAR HGB CONC 32.6 pg (28.0-36.0); NEUTROPHILE ABSOLUTE 11.2 Th/cmm (1.8-8.0); PLATELET COUNT 304 Th/cmm (150-400); RED BLOOD COUNT 4.26 Mil/cmm (3.80-5.80); RED CELL DISTRIBUTION WIDTH 24.8 % (11.5-20.0)
[2016-10-10 05:26] LABS: WHITE BLOOD COUNT 14.1 Th/cmm (4.8-10.8)
[2016-10-10 05:31] LABS: ALB/GLOB RATIO 0.7 (1.0-1.8); ALKALINE PHOSPHATASE 67 U/L (34-104); ANION GAP 6.3 (7.0-16.0); BILIRUBIN,TOTAL 0.5 mg/dL (0.3-1.0); BUN - UREA NITROGEN 6 mg/dL (7-25); CALCIUM SERUM 7.5 mg/dL (8.6-10.3); CARBON DIOXIDE 25.1 mEq/L (21.0-31.0); CHLORIDE 99 mEq/L (98-107); CREATININE - SERUM 0.4 mg/dL (0.7-1.3); GLUCOSE 151 mg/dL (70-105); MAGNESIUM 2.1 mg/dL (1.9-2.7); PHOSPHOROUS 2.6 mg/dL (2.5-5.0); POTASSIUM SERUM 3.4 mEq/L (3.5-5.1); SGOT 7 U/L (13-39); SGPT/ALT 6 U/L (7-52); SODIUM SERUM 127 mEq/L (136-145)
[2016-10-10] MEDS: Chlorhexidine Gluconate 0.12% 15mL Mouthwash MM SCH (08:00)
[2016-10-10] MEDS: INSULIN ASPART SLIDING SCALE 100 UNITS/ML UNIT SUBQ SCH ×3 (08:30→17:22)
--- NOTE | 2016-10-10 08:43 | Diagnostic Imaging Report ---
Portable chest x-ray HISTORY: Shortness of breath Compared to prior exam of October 08, 2016, there remains density in the left lower hemithorax that may be associated with pleural fluid. Underlying consolidation and/or atelectasis cannot be. An endotracheal tube tip is approximately 3.0 cm above the neelam. IMPRESSION: 1. No significant change in the cardiopulmonary status.
--- NOTE | 2016-10-10 08:54 | General Progress Note ---
Subjective - Review of Systems Service Date: 10/10/16 Events since last encounter: having ileostomy output LARA drain serous weaning off respirator Objective - Results Result Diagrams: 10/10/16 04:45 10/10/16 04:45 Recent Labs: Laboratory Last Values WBC 14.1 Th/cmm (4.8-10.8) H 10/10/16 04:45 RBC 4.26 Mil/cmm (3.80-5.80) 10/10/16 04:45 Hgb 10.1 gm/dL (12.6-17.4) L 10/10/16 04:45 Hct 31.1 % (39.0-49.0) L 10/10/16 04:45 MCV 73.0 fl (80-99) L 10/10/16 04:45 MCH 23.8 pg (27.0-31.0) L 10/10/16 04:45 MCHC Differential 32.6 pg (28.0-36.0) 10/10/16 04:45 RDW 24.8 % (11.5-20.0) H 10/10/16 04:45 Plt Count 304 Th/cmm (150-400) 10/10/16 04:45 MPV 7.0 fl 10/10/16 04:45 Neutrophils % 79.4 % (40.0-80.0) 10/10/16 04:45 Band Neutrophils % 7 % (0-10) 10/08/16 06:00 Lymphocytes % 8.6 % (20.0-50.0) L 10/10/16 04:45 Monocytes % 7.3 % (2.0-10.0) 10/10/16 04:45 Eosinophils % 4.1 % (0.0-5.0) 10/10/16 04:45 Basophils % 0.6 % (0.0-2.0) 10/10/16 04:45 Neutrophils (Manual) 84 % (40-80) H 10/08/16 06:00 Lymphocytes 5 % (20-50) L 10/08/16 06:00 Monocytes 1 % (2-10) L 10/08/16 06:00 Eosinophils 2 % (0-5) 10/08/16 06:00 Basophils 0 % (0-3) 10/05/16 17:39 Atypical Lymphocytes 1 % 10/08/16 06:00 Platelet Estimate ADEQUATE (NORMAL) 10/08/16 06:00 Platelet Morphology NORMAL (NORMAL) 10/08/16 06:00 Polychromasia 2+ 09/28/16 14:41 Poikilocytosis 1+ 10/01/16 06:30 Anisocytosis 1+ 10/08/16 06:00 Microcytosis 2+ 10/08/16 06:00 RBC Morph Micro Appear ABNORMAL (NORMAL) 10/08/16 06:00 PT 11.8 SECONDS (9.5-11.5) H 10/05/16 04:55 INR 1.12 (0.5-1.4) 10/05/16 04:55 PTT (Actin FS) 27.9 SECONDS (26.0-38.0) 10/05/16 04:55 Specimen Source Arterial 10/07/16 13:20 Sample Site Left Radial 10/07/16 13:20 pH 7.48 (7.35-7.45) H 10/07/16 13:20 pCO2 32.0 mmHg (35.0-45.0) L 10/07/16 13:20 pO2 263.0 mmHg (80.0-100.0) H 10/07/16 13:20 HCO3 25.7 mEq/L (20.0-26.0) 10/07/16 13:20 Base Excess 0.9 mEq/L (-3.0-3.0) 10/07/16 13:20 O2 Saturation 100.0 % (92.0-100.0) 10/07/16 13:20 Gianfranco Test PASS 10/07/16 13:20 Vent Rate 14 10/07/16 13:20 Inspired O2 100 10/07/16 13:20 Tidal Volume 500 10/07/16 13:20 PEEP 5 10/07/16 13:20 Pressure (ins/psv/peep) NA 10/06/16 09:37 Critical Value PW 10/07/16 13:20 Sodium 127 mEq/L (136-145) L 10/10/16 04:45 Potassium 3.4 mEq/L (3.5-5.1) L 10/10/16 04:45 Chloride 99 mEq/L (98-107) 10/10/16 04:45 Carbon Dioxide 25.1 mEq/L (21.0-31.0) 10/10/16 04:45 Anion Gap 6.3 (7.0-16.0) L 10/10/16 04:45 BUN 6 mg/dL (7-25) L 10/10/16 04:45 Creatinine 0.4 mg/dL (0.7-1.3) L 10/10/16 04:45 Est GFR ( Amer) > 60.0 ml/min (>90) 10/10/16 04:45 Est GFR (Non-Af Amer) > 60.0 ml/min 10/10/16 04:45 BUN/Creatinine Ratio 15.0 10/10/16 04:45 Glucose 151 mg/dL (70-105) H 10/10/16 04:45 POC Glucose 134 MG/DL (70 - 105) H 10/10/16 08:17 Whole Bld Lactic Acid 1.25 mmol/L (0.60-1.99) 09/28/16 14:41 Calcium 7.5 mg/dL (8.6-10.3) L 10/10/16 04:45 Phosphorus 2.6 mg/dL (2.5-5.0) 10/10/16 04:45 Magnesium 2.1 mg/dL (1.9-2.7) 10/10/16 04:45 Iron 8 ug/dL (38-169) L 09/30/16 06:10 TIBC 161 ug/dL (250-450) L 09/30/16 06:10 Iron Saturation 5 % (15-55) L 09/30/16 06:10 Unsaturated IBC 153 ug/dL (111-343) 09/30/16 06:10 Ferritin 49 ng/mL (30-400) 09/30/16 06:10 Total Bilirubin 0.5 mg/dL (0.3-1.0) 10/10/16 04:45 AST 7 U/L (13-39) L 10/10/16 04:45 ALT 6 U/L (7-52) L 10/10/16 04:45 Alkaline Phosphatase 67 U/L (34-104) 10/10/16 04:45 Ammonia 36 umol/L (16-53) 10/09/16 14:33 Lactate Dehydrogenase 132 U/L (140-271) L 09/30/16 06:10 Creatine Kinase 34 U/L (30-223) 09/28/16 14:41 Troponin I < 0.01 ng/mL (0.01-0.05) L 09/28/16 14:41 Total Protein 4.5 gm/dL (6.0-8.3) L 10/10/16 04:45 Albumin 1.9 gm/dL (4.2-5.5) L 10/10/16 04:45 Globulin 2.6 gm/dL 10/10/16 04:45 Albumin/Globulin Ratio 0.7 (1.0-1.8) L 10/10/16 04:45 Vitamin B12 978 pg/mL (211-946) H 09/30/16 06:10 Folic Acid 19.4 ng/mL (>3.0) 09/30/16 06:10 Urine Source [place] 09/29/16 16:30 Urine Color YELLOW 09/29/16 16:30 Urine Clarity SLIGHT CLOUDY (CLEAR) 09/29/16 16:30 Urine pH 6.5 (4.6 - 8.0) 09/29/16 16:30 Ur Specific [place] 1.015 (1.005-1.030) 09/29/16 16:30 Urine Protein TRACE mg/dL (NEGATIVE) 09/29/16 16:30 Urine Glucose (UA) NEGATIVE mg/dL (NEGATIVE) 09/29/16 16:30 Urine Ketones NEGATIVE mg/dL (NEGATIVE) 09/29/16 16:30 Urine Blood LARGE (NEGATIVE) H 09/29/16 16:30 Urine Nitrate NEGATIVE (NEGATIVE) 09/29/16 16:30 Urine Bilirubin NEGATIVE (NEGATIVE) 09/29/16 16:30 Urine Urobilinogen 0.2 E.U./dL (0.2 - 1.0) 09/29/16 16:30 Ur Leukocyte Esterase NEGATIVE (NEGATIVE) 09/29/16 16:30 Urine RBC 25-50 /hpf (0-5) H 09/29/16 16:30 Urine WBC 0-2 /hpf (0-5) 09/29/16 16:30 Ur Epithelial Cells RARE /lpf (FEW) 09/29/16 16:30 Amorphous Sediment FEW URATES (NONE SEEN) 09/28/16 17:00 Urine Bacteria FEW /hpf (NONE SEEN) 09/29/16 16:30 Urine Mucus FEW /lpf (FEW) 09/28/16 17:00 Stool Occult Blood NEGATIVE (NEGATIVE) 09/30/16 17:11 Vancomycin Trough 7.1 ug/mL (10-20) L 10/08/16 13:00 Helicobacter pylori Ab NEGATIVE (NEGATIVE) 09/30/16 14:00 Blood Type B POSITIVE 10/05/16 04:35 Antibody Screen NEGATIVE 10/05/16 04:35 Crossmatch See Detail 09/28/16 16:32 - Physical Exam Vitals and I&O: Vital Signs Temp 97.6 F 10/10/16 04:00 Pulse 97 10/10/16 07:00 Resp 21 10/10/16 07:42 BP 129/79 10/10/16 07:00 Pulse Ox 99 10/10/16 07:00 Intake & Output 10/09/16 10/10/16 10/10/16 18:59 06:59 18:59 Intake Total 1050 2510 Output Total 1615 70 Balance -565 2440 Weight (lbs) 58.06 kg 58.06 kg Intake: Intake, IV Amount 350 2460 Levofloxacin 500mg/100mL 100 500 mg In 100 ml @ 100 mls/hr IV Q24HR [facility] Rx#: [id number] Meropenem 1 gm In Sodium 100 100 Chloride 0.9% 100 ml @ 100 mls/hr IV Q8H [facility] Rx# :[id number] Potassium Chloride 10 meq 2010 In Dextrose 5% 1,000 ml @ 100 mls/hr IV .Q10H3M [facility] Rx#:[id number] Vancomycin HCl 1 gm In 250 250 Sodium Chloride 0.9% 250 ml @ 165 mls/hr IV Q12HR [facility] Rx#:[id number] TPN/PPN 700 50 Output: Drainage 290 20 Left Lower Abdomen 240 10 right ileostomy 50 10 Urine 1325 50 Other: Stool Characteristics Liquid Liquid Active Medications: Current Medications Acetaminophen (Tylenol) 650 mg PO Q6HR PRN PRN Reason: TEMP 100.0 AND ABOVE Stop: 11/27/16 20:42 Last Admin: 09/29/16 15:58 Dose: 650 mg Albuterol/Ipratropium (Duoneb Neb) 3 ml HHN Q4HRT [facility] Stop: 12/05/16 18:59 Last Admin: 10/10/16 06:57 Dose: 3 ml Chlorhexidine Gluconate (Peridex) 15 ml MM 0800,1999 [facility] Stop: 12/06/16 19:59 Last Admin: 10/09/16 20:00 Dose: 15 ml Hydralazine HCl (Apresoline 20 Mg/Ml) 10 mg IV Q4H PRN PRN Reason: SBP>160 Stop: 12/06/16 08:40 Hydromorphone HCl (Dilaudid) 1 mg IVP Q4HR PRN PRN Reason: Pain (Mild) Stop: 12/04/16 10:25 Last Admin: 10/09/16 16:54 Dose: 1 mg Levofloxacin (Levaquin Pb) 500 mg in 100 mls @ 100 mls/hr IV Q24HR [facility] Stop: 11/28/16 20:59 Last Infusion: 10/09/16 22:00 Dose: Infused Norepinephrine Bitartrate 4 mg (/ Dextrose) 254 mls @ 0 mls/hr IV TITR PRN; Protocol; Titrate PRN Reason: BP MAINTENANCE (PER PROTOCOL) Stop: 12/05/16 20:20 Potassium Chloride 10 meq/ (Dextrose) 1,005 mls @ 100 mls/hr IV .Q10H3M [facility] Stop: 12/06/16 10:29 Last Infusion: 10/09/16 23:00 Dose: Infused Meropenem 1 gm/ Sodium (Chloride) 100 mls @ 100 mls/hr IV Q8H [facility] Stop: 12/06/16 20:59 Last Admin: 10/10/16 05:00 Dose: 100 mls/hr Vancomycin HCl 1 gm/ Sodium (Chloride) 250 mls @ 165 mls/hr IV Q12HR [facility] Stop: 12/08/16 10:14 Last Admin: 10/10/16 08:15 Dose: 165 mls/hr Multivitamins/Minerals 10 ml/Amino Acids/ Fat Emulsion Intravenous 1,200 mls @ 50 mls/hr IV .Q24H [facility] Stop: 12/08/16 15:59 Last Admin: 10/09/16 15:57 Dose: 50 mls/hr Insulin Aspart (Novolog Insulin Sliding Scale) 0 units SUBQ ACHS [facility]HEEL PRN Reason: Protocol Stop: 12/06/16 16:29 Last Admin: 10/10/16 08:30 Dose: Not Given Miscellaneous (Vancomycin Iv Per Pharmacy) 1 ea PRN [facility]HE[facility] Stop: 12/05/16 12:59 Miscellaneous (Tpn Per Pharmacy) 1 ea PRN PRN PRN Reason: PROTOCOL Stop: 12/06/16 10:56 Miscellaneous (Pharmacy To Dose) 1 ea PRN RAHEEL Stop: 12/06/16 20:29 Miscellaneous (Probiotic Screen) 1 ea PRN PRN PRN Reason: PROTOCOL Stop: 12/08/16 16:20 Ondansetron HCl (Zofran) 4 mg IV UD PRN PRN Reason: Nausea / Vomiting Stop: 12/04/16 09:25 Pantoprazole Sodium (Protonix) 40 mg IVP Q12HR [facility] Stop: 12/06/16 10:59 Last Admin: 10/10/16 08:15 Dose: 40 mg General: Alert, Other (Eyes open non verbal) HEENT: Atraumatic Neck: Supple Cardiovascular: Regular rate, Other (Tachicardic) Lungs: Other (Rude respiration) Abdomen: Bowel sounds, Soft, Other (Cover with chava) Extremities: Other (No edema) Neurological: Other (Non ambulatory) Skin: Other (Warm and dry) Psych/Mental Status: Other (Awake, eyes open, non verbal) - Procedures Procedures: Procedures Procedure Code Date BLOOD TRANSFUSION SERVICE 02844 09/28/16 BYPASS ILEUM TO CUTANEOUS, OPEN APPROACH [id number] 09/28/16 BYPASS STOMACH TO JEJUNUM, OPEN APPROACH [id number] 09/28/16 EGD BIOPSY SINGLE/MULTIPLE 85871 09/28/16 EXCISION OF STOMACH, ENDO, DIAGN [id number] 09/28/16 EXCISION OF STOMACH, OPEN APPROACH [id number] 09/28/16 ILEOSTOMY/JEJUNOSTOMY 56140 09/28/16 REMOVAL OF STOMACH PARTIAL 29001 09/28/16 TRANSFUSE NONAUT RED BLOOD CELLS IN PERIPH VEIN, PERC 53393Y9 09/28/16 Nutritional Asmnt/Malnutr-PDOC - Dietary Evaluation Malnutrition Findings (Please click <Entered> for more info): Nutritional Asmnt/Malnutrition Start: 09/29/16 16: 06 Text: Status: Complete Freq: Document 09/29/16 19:24 [facility] (Rec: 09/29/16 19:32 [facility] [id number]) Nutritional Asmnt/Malnutrition Patient General Information Nutritional Screening High Risk Screening Diagnosis Acute anemia, dehydration, clinical pneumonia Pertinent Medical Hx/Surgical Hx CHF, HTN, dementia, old CVA, muscle atrophy Subjective Information Pt is a 66-year-old male from [facility]) admitted with chief complaint of fever. Pt is nonverbal and a poor historian. Pt was laying flat in bed during time of visit. Pt appears well nourished with no signs of muscle or fat depletion. Current Diet Order/ Nutrition Support NPO Patient / S.O Can't verbalize diet edu Pertinent Medications NaCl 0.9% Pertinent Labs (09/29) Na 126L (improving), Albumin 2.2L Nutritional Hx/Data Height 1.52 m Height (Calculated Centimeters) 152.4 Current Weight (lbs) 62.596 kg Weight (Calculated Kilograms) 62.6 Weight (Calculated Grams) 69172.7 [place] Body Weight 106 % [place] Body Weight 130 Weight Status Overweight GI Symptoms GI Symptoms Constipation Food Allergies No Cultural/Ethnic/Sabianist Belief No cultural or yarsani preferences noted. Per chart, at [facility], pt received 8 oz prune juice at dinner, no spicy foods, may soak crackers, bread, and cookie with milk. Clear liquid diet every Monday at 1300. Usual diet at home Medium ground diet, Ensure BID Skin Integrity/Comment: Vinod 12, improved to 15. Skin intact. Estimated Nutritional Goals BEE in Kcals: Using Current wt Calories/Kcals/Kg Based on current wt 62.7 kg for wt maintenance Kcals Calculated 1568 kcals/day Protein: Using Current wt Protein g/kg: Based on current wt 62.7 kg for wt maintenance Protein Calculated 63-75 gm/day (1-1.2 gm/kg) Fluid: ml Per MD/DO due dehydration Nutritional Problem 1. Problem Problem Inadequate energy/protein intake related to Etiology pending diagnostic procedures as evidenced by Signs/Symptoms: current NPO status. Malnutrition Alert Protein-Calorie Malnutrition N/A Is there a minimum of two criteria No selected? Query Text:Check all the applicable criteria. A minimum of two criteria are recommended for diagnosis of either severe or non-severe malnutrition. Malnutrition Related to Morbid Obesity Malnutrition related to morbid obesity No Intervention/Recommendation Comments 1. When medically appropriate, recommend mechanical soft ground diet with Boost BID. FNS to provide prune juice with dinner, to honor prior preferences. Expected Outcomes/Goals Expected Outcomes/Goals Have pt meet at least 75% of estimated nutritional needs. Physician Parameters for PEM Normal Weight % 90% - 110% (Normal) Serum Albumin (g/dl) <2.4 (Severe)
[2016-10-10 09:27] LABS: VANCOMYCIN TROUGH 11.9 ug/mL (10-20)
[2016-10-10] MEDS ORDERED: TPN 10%-70% CUSTOM IV SCH ×2 (11:30→16:00)
--- NOTE | 2016-10-11 16:31 | Discharge Summary ---
DATE OF DISCHARGE: 10/10/2016 ADMITTING DIAGNOSES: Fever, dehydration, severe anemia, pneumonia, leukocytosis, thrombocytosis, hyponatremia, hypoalbuminemia, malnourishment, hematuria. SECONDARY DIAGNOSES: Include essential hypertension, history of cerebrovascular accident/transient ischemic attack, history of dementia. 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 CONSULTANTS: Dr. Houston, General Surgery. Dr. Kitchen, GI. Dr. Maldonado, Critical Care/Pulmonary Medicine. Dr. Duane Bar, ID. MAJOR PROCEDURES: 1. He underwent a CT of the abdomen and pelvis on a 09/28/2016 showing distal fecal impaction with associated massive proximal distention of the sigmoid colon measuring up to 7 cm. Distal rectal wall thickening was also noted. There is no evidence of gross free air at this time. There is a large ill-defined soft tissue density/mass along the greater curvature of the stomach with diffuse areas of wall thickening of the stomach. The mass extends down to a lesser omentum and along the transverse colonic region. There is surrounding inflammatory changes and trace free fluid is noted. Mild prominent lymph nodes are also seen in the region. Findings most suggest neoplastic process, possibly arising from the stomach and the transverse colon. 2. There was an upper endoscopy done on September 30 showing a large density and gastric submucosal mass with central ulceration x 2, mass was suspicious for neoplasm status post biopsy. On 10/06/2016, he underwent the above-mentioned procedure by Dr. Houston. Please refer to discharge diagnoses. 3. There was an upper GI series done on 10/06/2016 showing opacification of the gastric lumen with no evidence of extravasation. Mildly dilated loops of large and small bowel, which may represent an ileus. MEDICATIONS ON TRANSFER: Acetaminophen q. 6 p.r.n. for pain, DuoNeb q. 4 hours, TPN, hydralazine 10 mg q. 4 hours p.r.n. for SBP greater than 160, Dilaudid 1 mg q. 4 p.r.n. for moderate to severe pain, insulin sliding scale, Levaquin 500 mg IV q. 24 hours, Levophed p.r.n. for SBP less than 90, meropenem 1 gram q. 8 hours, Zofran 4 mg IV push p.r.n. for nausea and vomiting, Protonix 40 mg IV q. 12, vancomycin 1 gram q. 12. BRIEF HOSPITAL COURSE: This is a 66-year-old gentleman who was brought into the ER for fevers, poor p.o. intake and overall weakness. On initial labs, he was noted to have a white count of 14.5 and H and H of 6/20, and platelet count of 476. He also had some electrolyte imbalances (hyponatremia of 122, chloride of 96) and he was also noted to have malnutrition with an albumin of 2.4. He was transfused 2 units of PRBC, was placed on empiric IV antibiotics and underwent anemia workup. X-ray on admission also was noted to have distended loops of bowel under the right diaphragm. A CT of abdomen and pelvis followed, please refer to the procedures. Given the findings of the CT, GI eval was asked for and the patient underwent an EGD and eventually underwent the above-mentioned operation by General Surgery. Postop the patient did well, but at times required pressors and was eventually extubated, but by October 07, he was noted to be in some shortness of breath with increased secretions, so therefore he was reintubated and placed on assist control ventilation. He was also eventually placed on TPN and was kept on his antibiotics as scheduled as well pulm toilet, and IV fluids. His LARA and ostomy bag did produce large amounts of purulent drainage throughout his stay, but clinically speaking, he remained stable, getting off pressors and being weaned off assist control to IMV. CONDITION ON DISCHARGE: Stable. DISPOSITION: The patient was transferred to [facility]/Dalj[facility] Rachel for further management and care. JOB# [id number] PORFIRIO
== END 2016-10-10 20:06 | DRG 853 ==
LOC: ER 14:09 → TELE 15:55 → ICU 10-05 10:00
PROVIDERS: ADMIT Internal Medicine; ATTEND Internal Medicine
PROC: 30233N1 Transfusion of Nonautologous Red Blood Cells into Peripheral Vein, Percutaneous Approach (ICD-10-PCS; principal; 2016-09-29)
PROC: 0DB68ZX Excision of Stomach, Via Natural or Artificial Opening Endoscopic, Diagnostic (ICD-10-PCS; 2016-09-30)
PROC: 0DB60ZZ Excision of Stomach, Open Approach (ICD-10-PCS; 2016-10-05)
PROC: 0D160ZA Bypass Stomach to Jejunum, Open Approach (ICD-10-PCS; 2016-10-05)
PROC: 0D1B0Z4 Bypass Ileum to Cutaneous, Open Approach (ICD-10-PCS; 2016-10-05)
PROC: 0DTF0ZZ Resection of Right Large Intestine, Open Approach (ICD-10-PCS; 2016-10-05)
PROC: 5A1945Z Respiratory Ventilation, 24-96 Consecutive Hours (ICD-10-PCS; 2016-10-07)
PROC: 3E0336Z Introduction of Nutritional Substance into Peripheral Vein, Percutaneous Approach (ICD-10-PCS; 2016-10-07)
PROC: 02HV33Z Insertion of Infusion Device into Superior Vena Cava, Percutaneous Approach (ICD-10-PCS; 2016-10-07)
DX: A41.9 Sepsis, unspecified organism (principal); J18.9 Pneumonia, unspecified organism; R65.21 Severe sepsis with septic shock; J96.00 Acute respiratory failure, unspecified whether with hypoxia or hypercapnia; K59.39 Other megacolon; C16.9 Malignant neoplasm of stomach, unspecified; F72 Severe intellectual disabilities; E44.1 Mild protein-calorie malnutrition; E87.1 Hypo-osmolality and hyponatremia; K92.2 Gastrointestinal hemorrhage, unspecified; K56.7 Ileus, unspecified; C18.4 Malignant neoplasm of transverse colon; F03.90 Unspecified dementia, unspecified severity, without behavioral disturbance, psychotic disturbance, mood disturbance, and anxiety; D64.9 Anemia, unspecified; E86.0 Dehydration; I10 Essential (primary) hypertension; G80.9 Cerebral palsy, unspecified; K56.41 Fecal impaction; D47.3 Essential (hemorrhagic) thrombocythemia; R31.9 Hematuria, unspecified; Y92.89 Other specified places as the place of occurrence of the external cause; Z68.25 Body mass index [BMI] 25.0-25.9, adult; Z86.73 Personal history of transient ischemic attack (TIA), and cerebral infarction without residual deficits; Z82.49 Family history of ischemic heart disease and other diseases of the circulatory system; Z79.899 Other long term (current) drug therapy
CPT/HCPCS: 36415-UA; 36600-90; 71010-TC; 80053-TC; 80202-TC; 81001-TC; 82140-TC; 82270-TC; 82465-TC; 82550-TC; 82607-90; 82728-90; 82746-90; 82803-TC; 82948-90; 83540-90; 83550-90; 83605; 83615-TC; 83735-TC; 84100-TC; 84134-90; 84478-TC; 84484-TC; 85007-TC; 85014-TC; 85018-TC; 85025-TC; 85027-TC; 85610-TC; 85730-TC; 86850-TC; 86900-TC; 86901-TC; 86922-TC; 87070; 87070-90; 87075-90; 87205-90; 87338-TC; 88305-90; 90799; 93005; 94002; 94003; 96372; C9113; J1170; J1815; J1956; J2001; J2185; J2250; J2704; J3370; J3475; J3480; J3490; J7030; J7040; J7070; P9016; P9046; V2790; X6026; X6206; X6598; X7704; Z7610